=== PATIENT | female | born 1960 | race African-American/Black ===

== ENCOUNTER 2016-09-18 19:24 | Emergency (ER) ==
[2016-09-18] MEDS ORDERED: ASPIRIN PO ONE (19:37)
[2016-09-18] MEDS ORDERED: MORPHINE IV ONE ×2 (19:55→21:40)
[2016-09-18] MEDS ORDERED: PHENERGAN IV ONE (19:55)
[2016-09-18] MEDS ORDERED: SODIUM CHLORIDE 0.9% INJ ONE (19:55)
--- NOTE | 2016-09-18 19:55 | PROVIDER DOCUMENTATION ---
HPI-Chest Pain - General Source: patient - History of Present Illness-CP Chest Pain Radiation: reports: jaw, arms, back Quality of Pain: reports: tightness Severity in ED: moderate Onset/Duration: 24 hours ago Timing: still present Context/Activities at Onset: reports: none Associated Symptoms: reports: back pain, nausea, shortness of breath. denies: fever/chills, vomiting Nitro Today/Relief: no nitro taken today Aspirin Treatment Today: no aspirin today Prior Chest Pain/Cardiac Workup: reports: heart attack Similar Symptoms Previously?: Yes <Cyndi Yañez - Last Filed: 09/18/16 20:32> <Nida Guzman - Last Filed: 09/18/16 21:43> - General Chief Complaint: Shortness of Breath Stated Complaint: CHEST PAIN/SOB/BACK PAIN Time Seen by Provider: 09/18/16 19:43 Allergies/Adverse Reactions: Patient Allergies Allergy/AdvReac Type Severity Reaction Status Date / Time naproxen sodium * Allergy Intermediate RASH Verified 08/26/16 20:57 [From Anaprox] acetaminophen [From Tylenol] Allergy ITCHING Verified 08/26/16 20:57 dichloralphenazone AdvReac Mild RASH Verified 08/26/16 20:57 [From MIDRIN] isometheptene mucate * AdvReac Mild RASH Verified 08/26/16 20:57 [From MIDRIN] ketorolac tromethamine * AdvReac Mild RASH Verified 08/26/16 20:57 [From Toradol] naproxen [From Naprosyn] AdvReac Mild RASH Verified 08/26/16 20:57 tramadol HCl * [From Ultram] AdvReac Mild RASH Verified 08/26/16 20:57 ondansetron HCl * AdvReac NAUSEA/VOMI Verified 08/26/16 20:57 [From Zofran (as TING hydrochloride)] Home Medications: Home Medication List Medication Instructions Recorded Confirmed Last Taken Type ATORVAstatin [Lipitor] 40 mg PO QPM #0 tablet 02/08/13 07/20/16 07/19/16 21:00 Rx Carvedilol [Coreg] 25 mg PO BID #60 tablet 06/08/14 07/20/16 07/19/16 21:00 Rx Hydralazine HCl 25 mg PO TID 06/08/14 07/20/16 07/19/16 21:00 History LISINOpril [Prinivil] 20 mg PO DAILY #0 tablet 06/17/14 07/20/16 07/19/16 09:00 Rx Isosorbide Mononitrate E.r. [Imdur] 90 mg PO DAILY #0 tablet 08/31/14 07/20/16 07/19/16 09:00 Rx Furosemide [Lasix] 40 mg PO QAM 01/09/16 07/20/16 07/19/16 09:00 History Spironolactone 25 mg PO DAILY 01/28/16 07/20/16 07/19/16 09:00 History Albuterol 2.5MG/Ipratrop 0.5MG 3 ml INH [id number] #30 neb 03/21/16 07/20/16 09:00 Rx [Duoneb (A & A)] Famotidine [Pepcid] 20 mg PO DAILY #20 tablet 05/27/16 07/20/16 07/19/16 09:00 Rx Colchicine [Colcrys] 0.6 mg PO BID PRN PRN 06/07/16 07/20/16 07/19/16 21:00 History Omeprazole [Prilosec] 20 mg PO DAILY@0700 #0 capsule 06/08/16 07/20/16 07/19/16 09:00 Rx Clonazepam [Klonopin] 1 mg PO BID 07/19/16 07/20/16 07/19/16 21:00 History Promethazine [Phenergan] 25 mg PO Q6H PRN PRN #20 tablet 08/26/16 Unknown Rx - History of Present Illness-CP Nature of Presenting Problem: 56 Y/O F presents to ED with Chest Pain. Pt states that she's been having and onset of 24 hours ago of left sided Chest pain with SOB with radiation to her left side of chest and left arm and into her back. Pt states a hx of a heart attack, with 2 cardaic stints, Nausea. Denies any diaphoresis. States she's on 3L of O2, COPD meds and nebulizer states compliance with meds but hasn't helped with SOB. (Cyndi Yañez) Review of Systems - Adult - REVIEW OF SYSTEMS - ADULT Constitutional: denies: chills, fever Eyes: reports: no symptoms reported Ears, Nose, Mouth & Throat: reports: no symptoms reported Cardiovascular: reports: chest pain Respiratory: reports: shortness of breath. denies: cough Gastrointestinal: reports: nausea. denies: diarrhea, vomiting Genitourinary: reports: no symptoms reported Musculoskeletal: reports: back pain Integumentary: reports: no symptoms reported Neurological: denies: dizziness/vertigo, headache/migraines, numbness, seizure, syncope Psychiatric: reports: no symptoms reported Endocrine: reports: no symptoms reported Hematologic/Lymphatic: reports: no symptoms reported Allergic/Immunologic: reports: no symptoms reported All Other Systems: Reviewed and Negative <Cyndi Yañez - Last Filed: 09/18/16 20:32> Past History - Adult - PAST MEDICAL HISTORY-ADULT Review of Records: reports: Old Records Reviewed, Nursing Assessment Review, Medications Reviewed, Social history reviewed & non-contributory. - SOCIAL HISTORY Smoking: quit greater than 1 year Substance Use: none/never Alcohol Use Frequency: never Living Situation: family <Cyndi Yañez - Last Filed: 09/18/16 20:32> - PAST MEDICAL HISTORY-ADULT Major Childhood Illnesses: reports: denies history Cardiovascular: reports: CAD, CHF, HTN, hyperlipidemia, VT (x2) Respiratory: reports: COPD Gastrointestinal: reports: GERD Obstetrical/Gynecological: reports: denies history Genitourinary: reports: kidney stones Musculoskeletal: reports: chronic pain Neurological: reports: headaches/migraines (tension headaches) Psychiatric: reports: anxiety Endocrine/Immune: reports: Diabetes Other Conditions: reports: denies history Additional History: Freq ER visits - PRIOR SURGERIES/PROCEDURES Surgical/Procedure History: reports: reviewed, not pertinent, cholecystectomy, cardiac stent (X2 ), hysterectomy, - PRIOR HOSPITALIZATIONS Prior Hospitalizations: reports: for similar symptoms, for other non-related - IMMUNIZATION STATUS Childhood Immunizations: See Nurse Assessment Flu Vaccine: See Nurse Assessment - FAMILY HISTORY Family History: reviewed, not pertinent <Nida Guzman - Last Filed: 09/18/16 21:43> Physical Exam-General - PHYSICAL EXAM-ADULT Initial Vital Signs Reviewed: Yes - CONSTITUTIONAL General Appearance: appears well, alert, no apparent distress, obese - EYES Eyes: PERRL/EOMI, pink conjunctivae - HEAD, EARS, NOSE, MOUTH & THROAT HENMT: normocephalic/atraumatic, moist mucous membranes, normal ENT inspection - NECK Neck: non-tender, full range of motion, supple. negative: lymphadenopathy - RESPIRATORY Respiratory: chest non-tender, lungs clear, normal breath sounds - CARDIOVASCULAR Cardiovascular: regular rate, rhythm, no edema, no murmur - GASTROINTESTINAL (ABDOMEN) Abdominal Exam: normal bowel sounds, non tender, soft - MUSCULOSKELETAL Back Exam: no CVA tenderness, no vertebral tenderness Extremity: normal inspection Peripheral Pulses: dorsalis-pedis (R): 2+, dorsalis-pedis (L): 2+ - SKIN Integumentary: normal color, normal turgor, warm/dry. negative: rash - NEUROLOGIC Neurologic: grossly normal, no motor/sensory deficits - PSYCHIATRIC Psych/Mental Status: normal thought content, normal thought process <Nida Guzman - Last Filed: 09/18/16 21:43> Progress - EKG 1 Time of EKG reading by physician:: 19:37 EKG Read and Signed by:: Israel Espitia EKG Interpretation (*Must complete 3 of following elements*): Abnormal Rate: 94 Rhythm: NSR QRS: RBB Comments: Abnormal ECG <Cyndi Yañez - Last Filed: 09/18/16 20:32> <Nida Guzman - Last Filed: 09/18/16 21:43> - PLAN OF CARE/RESULTS Progress/Plan/Lab Results: Reviewed past records and pt has had multiple elevated d-dimers with normal VQ scans and pulmonary angiograms. Pt is frequently in ER with same complaints of SOB and chest pain. Discussed all labs and x-rays with Dr. Espitia. Vital Signs Temp Pulse Resp BP Pulse Ox 09/18/16 19:40 95 H 23 143/100 95 09/18/16 19:32 98 F 101 H 20 162/92 99 naproxen sodium * [From Anaprox] Allergy (Intermediate, Verified 08/26/16 20:57) RASH acetaminophen [From Tylenol] Allergy (Verified 08/26/16 20:57) ITCHING dichloralphenazone [From MIDRIN] Adverse Reaction (Mild, Verified 08/26/16 20:57 ) RASH isometheptene mucate * [From MIDRIN] Adverse Reaction (Mild, Verified 08/26/16 20:57) RASH ketorolac tromethamine * [From Toradol] Adverse Reaction (Mild, Verified 20:57) RASH naproxen [From Naprosyn] Adverse Reaction (Mild, Verified 08/26/16 20:57) RASH tramadol HCl * [From Ultram] Adverse Reaction (Mild, Verified 08/26/16 20:57) RASH ondansetron HCl * [From Zofran (as hydrochloride)] Adverse Reaction (Verified 20:57) NAUSEA/VOMITING ATORVAstatin [Lipitor] 40 mg PO QPM #0 tablet 02/08/13 Carvedilol [Coreg] 25 mg PO BID #60 tablet 06/08/14 Hydralazine HCl 25 mg PO TID 06/08/14 LISINOpril [Prinivil] 20 mg PO DAILY #0 tablet 06/17/14 Isosorbide Mononitrate E.r. [Imdur] 90 mg PO DAILY #0 tablet 08/31/14 Furosemide [Lasix] 40 mg PO QAM 01/09/16 Spironolactone 25 mg PO DAILY 01/28/16 Albuterol 2.5MG/Ipratrop 0.5MG [Duoneb (A & A)] 3 ml INH [id number] #30 neb Famotidine [Pepcid] 20 mg PO DAILY #20 tablet 05/27/16 Colchicine [Colcrys] 0.6 mg PO BID PRN PRN 06/07/16 Omeprazole [Prilosec] 20 mg PO DAILY@0700 #0 capsule 06/08/16 Clonazepam [Klonopin] 1 mg PO BID 07/19/16 Promethazine [Phenergan] 25 mg PO Q6H PRN PRN #20 tablet 08/26/16 Laboratory 09/18/16 09/18/16 09/18/16 20:10 19:45 19:45 WBC 10.92 H RBC 3.98 L Hgb 12.2 Hct 37.6 MCV 94.5 MCH 30.7 MCHC 32.4 L RDW Std Deviation 14.6 H Plt Count 266 MPV 10.2 Immature Gran % (Auto) 0.1 Neut % (Auto) 63.7 Lymph % (Auto) 27.2 [place] % (Auto) 6.8 Eos % (Auto) 2.0 Baso % (Auto) 0.2 Immature Gran # (Auto) 0.01 Neut # (Auto) 6.96 H Lymph # (Auto) 2.97 [place] # (Auto) 0.74 H Eos # (Auto) 0.22 Baso # (Auto) 0.02 PT 13.7 INR 1.02 D-Dimer 0.80 H Specimen Type ARTERIAL Sample Site L RADIAL pH 7.50 H pCO2 38 pO2 65 HCO3 29.5 H Base Excess 6.1 H Oxyhemoglobin 90.1 L ABG O2 Sat (Calculated) 15.2 ABG O2 Saturation 96.6 ABG Carboxyhemoglobin 5.60 H* ABG Methemoglobin 1.0 Alex Test YES A-a O2 Difference 37.0 Total Hemoglobin 12.0 Lactate 1.50 Blood Gas Modality ROOM AIR FiO2 % 21.0 Sodium Potassium Chloride Carbon Dioxide Anion Gap BUN Creatinine Estimated GFR/1.73 m2 BUN/Creatinine Ratio Glucose Calculated Osmolality Calcium Magnesium Total Bilirubin AST ALT Alkaline Phosphatase Creatine Kinase Troponin T Cuv-G-Mzloojwndso Pept Total Protein Albumin Globulin Albumin/Globulin Ratio 09/18/16 09/18/16 09/18/16 19:45 19:45 19:45 WBC RBC Hgb Hct MCV MCH MCHC RDW Std Deviation Plt Count MPV Immature Gran % (Auto) Neut % (Auto) Lymph % (Auto) [place] % (Auto) Eos % (Auto) Baso % (Auto) Immature Gran # (Auto) Neut # (Auto) Lymph # (Auto) [place] # (Auto) Eos # (Auto) Baso # (Auto) PT INR D-Dimer Specimen Type Sample Site pH pCO2 pO2 HCO3 Base Excess Oxyhemoglobin ABG O2 Sat (Calculated) ABG O2 Saturation ABG Carboxyhemoglobin ABG Methemoglobin Alex Test A-a O2 Difference Total Hemoglobin Lactate Blood Gas Modality FiO2 % Sodium 140 Potassium 3.7 Chloride 103 Carbon Dioxide 25 Anion Gap 11 BUN 7 L Creatinine 1.0 H Estimated GFR/1.73 m2 58 BUN/Creatinine Ratio 7 Glucose 99 Calculated Osmolality 277 Calcium 9.1 Magnesium 1.6 Total Bilirubin 0.50 AST 12 ALT 8 L Alkaline Phosphatase 72 Creatine Kinase 94 Troponin T < 0.010 Eto-B-Jnyartmwhzs Pept 570 H Total Protein 7.1 Albumin 3.6 Globulin 4.0 Albumin/Globulin Ratio 1.0 Orders Category Date Time Status Cardiac Monitoring DIRECTED Care 09/18/16 19:37 Active CHEST-2 VIEWS [RAD] Stat Exams 09/18/16 19:37 Taken ABG [RESP] Routine Lab 09/18/16 20:10 Completed CBC WITH DIFF [HEME] Stat Lab 09/18/16 19:45 Completed CK PROFILE [SP CHEM] Stat Lab 09/18/16 19:45 Completed COMPREHENSIVE METABOLIC PANEL [CHEM] Stat Lab 09/18/16 19:[address] D-D[address]ER [address] [COAG] Stat Lab 09/18/16 19:45 Completed MAGNESIUM [CHEM] Stat Lab 09/18/16 19:45 Completed PRO B-NATRIURETIC PEPTIDE Stat Lab 09/18/16 19:45 Completed [address]IME WITH INR PL [COAG] Stat Lab 09/18/16 19:45 Completed TROPONIN T Stat Lab 09/18/16 19:45 Completed Aspirin Med 09/18/16 19:37 Discontinued 325 mg PO NOW ONE Morphine Med 09/18/16 19:55 Discontinued 4 mg IV NOW ONE Promethazine [Phenergan] Med 09/18/16 19:55 Discontinued 25 mg IV NOW ONE Sodium Chloride 0.9% Med 09/18/16 19:55 Discontinued 10 ml INJ NOW ONE EKG [EKG] Stat Ther 09/18/16 19:37 Ordered As results given to pt, she states she is still in pain and requests dilaudid as this controls her pain. This is denied, will give another dose of morphine. Explained her labs were all WNL at this time and that she needs to f/u with her acetylene operator for further evaluation. (Nida Guzman) Departure <Cyndi Yañez - Last Filed: 09/18/16 20:32> - Departure Time of Disposition Order: 21:20 Certified Medical Emergency: Emergent <Nida Guzman - Last Filed: 09/18/16 21:43> - Departure DIAGNOSIS: COPD exacerbation CHF (congestive heart failure) Qualifiers: Congestive heart failure type: unspecified congestive heart failure type Congestive heart failure chronicity: chronic Qualified Code(s): I50.9 - Heart failure, unspecified Chest pain Qualifiers: Chest pain type: other chest pain Qualified Code(s): R07.89 - Other chest pain Disposition: HOME 01 Condition: Good Additional Instructions: Follow up with your acetylene operator for further testing for chest pain. ED Follow Up Instructions: You have been treated by a care provider in the Emergency Department. These instructions are being provided to you so you can have an understanding of how to care for yourself upon discharge. Upon discharge from the Emergency Department, you are responsible for making arrangements for follow-up care by a physician of your choice. Take all prescribed medications as directed. Return to the Emergency Department immediately for any new or worsening symptoms. You may call the Physician Referral phone number at [phone] to obtain a list of Physicians who are taking new patients. Referrals: Abel Baez MD [Primary Care Provider] - Forms: Return to School/Parent Work Instructions: Chronic Obstructive Pulmonary Disease, Nonspecific Chest Pain, Heart Failure, Chest Pain Observation, Acute Bronchitis Attestation - Scribe Verification/Attestation Scribe:: Cyndi Yañez Acting as Scribe for:: Israel Espitia Scribe documention review:: This chart was documented by a scribe and accurately reflects the service the provider performed and the decisions made by the provider. - Physician/ [place] Attestation Patient care was provided by Advanced Practice Provider:: Yes Advanced Practice Provider:: Nida Guzman Advanced Practice Provider documentation review:: The Mid-level provider documentation, treatment plan and medical decision making was reviewed by the physician who agrees with all treatment and medical decision making by the MLP. <Cyndi Yañez - Last Filed: 09/18/16 20:32> - Physician/ [place] Attestation Patient care was provided by Advanced Practice Provider:: Yes Advanced Practice Provider:: Nida Guzman Advanced Practice Provider documentation review:: The Mid-level provider documentation, treatment plan and medical decision making was reviewed by the physician who agrees with all treatment and medical decision making by the MLP. <Nida Guzman - Last Filed: 09/18/16 21:43> Physician Attestation
[2016-09-18 19:57] LABS: MANUAL DIFF NEEDED? NO
[2016-09-18 20:11] LABS: BASO% 0.2 % (0.0-0.8); EOS# 0.22 X1000 (0.0-0.7); HEMATOCRIT 37.6 % (37.0-47.0); HEMOGLOBIN 12.2 g/dL (12.0-16.0); IMM GRAN# 0.01 X1000 (0.0-0.04); IMM GRAN% 0.1 % (0.0-0.5); LYMPH# 2.97 X1000 (1.2-3.4); LYMPH% 27.2 % (20.5-51.1); MCH 30.7 PG (27-31); MCHC 32.4 g/dL (33-37); MCV 94.5 FL (81-99); MONO# 0.74 X1000 (0.11-0.59); MONO% 6.8 % (1.7-9.3); MPV 10.2 FL (7.4-10.4); NEUT% 63.7 % (42.2-75.2); PLT 266 X1000 (130-400); RBC 3.98 XMIL (4.2-5.4)
[2016-09-18 20:15] LABS: INR 1.02 (0.86-1.15); PROTIME 13.7 Seconds (12.1-15.5)
[2016-09-18 20:25] LABS: BE 6.1 mmoll (-3.0-3.0); BLOOD TYPE ARTERIAL; DRAW SITE L RADIAL; O2(CT) 15.2 mL/dL (15.0-23.0); PCO2(98.6) 38 mmHg (35-45); PO2(98.6) 65 mmHg (60-100); SAMPLE BLOOD; SAO2 96.6 % (95.0-100.0)
[2016-09-18 20:33] LABS: ALLEN TEST YES; MODALITY ROOM AIR
[2016-09-18 20:38] LABS: ALBUMIN 3.6 g/dL (3.5-5.0); CALCIUM 9.1 mg/dL (8.8-10.2); MAGNESIUM 1.6 mg/dL (1.5-2.7); POTASSIUM 3.7 mmol/L (3.5-5.1); TOTAL BILIRUBIN 0.5 mg/dL (0.20-1.00); TOTAL PROTEIN 7.1 g/dL (6.3-8.3)
[2016-09-18] MEDS ORDERED: COMPAZINE IV ONE (21:41)
[2016-09-18 22:06] VITALS: BP 131/91
--- NOTE | 2016-09-19 01:07 | EKG Report ---
Test Performed on : 09/18/2016 7:37:18 PM Test Reason : CP/SOB Blood Pressure : / mmHG Vent. Rate : 094 BPM Atrial Rate : 094 BPM P-R Int : 132 ms QRS Dur : 128 ms QT Int : 444 ms P-R-T Axes : 043 267 067 degrees QTc Int : 555 ms Normal sinus rhythm. Right bundle branch block Septal infarct (cited on or before 26-NOV-2009) Possible Lateral infarct , age undetermined Abnormal ECG When compared with ECG of 26-AUG-2016 20:35, Left posterior fascicular block is no longer present Borderline criteria for Lateral infarct are now present T wave inversion no longer evident in Inferior leads Unconfirmed Result
--- NOTE | 2016-09-19 06:18 | Diag Imaging Result Document ---
PROCEDURE NAME: CHEST-2 VIEWS - 09/18/2016 FRONTAL AND LATERAL CHEST, TWO VIEWS: COMPARISON: Compared to 08/26/2016. FINDINGS: The lungs are well expanded. The heart is enlarged. There is atelectasis or fibrosis in the mid left lung. No pleural effusions. No pneumonia. The vessels are not distended. A small amount of atelectasis or fibrosis is found in the upper right lung. No free air beneath the diaphragm. IMPRESSION: 1. Cardiomegaly. 2. Bilateral atelectasis or fibrosis.
== END 2016-09-18 22:05 | disposition home or self-care (01) ==
LOC: P.ED 19:24
DX: J44.1 Chronic obstructive pulmonary disease with (acute) exacerbation (principal); I50.9 Heart failure, unspecified; R07.89 Other chest pain; R94.31 Abnormal electrocardiogram [ECG] [EKG]; R68.84 Jaw pain; M54.9 Dorsalgia, unspecified; R11.0 Nausea; R06.02 Shortness of breath; Z79.899 Other long term (current) drug therapy; M79.602 Pain in left arm; I25.10 Atherosclerotic heart disease of native coronary artery without angina pectoris; I10 Essential (primary) hypertension; E78.5 Hyperlipidemia, unspecified; I25.2 Old myocardial infarction; K21.9 Gastro-esophageal reflux disease without esophagitis; G89.29 Other chronic pain; E11.9 Type 2 diabetes mellitus without complications; F41.9 Anxiety disorder, unspecified; E66.9 Obesity, unspecified; Z95.5 Presence of coronary angioplasty implant and graft; Z87.891 Personal history of nicotine dependence; Z99.81 Dependence on supplemental oxygen; Z87.442 Personal history of urinary calculi
CPT/HCPCS: 71020; 80053; 82550; 82805; 83735; 83880; 84484; 85025; 85379; 85610; 93005; J0780; J2270; J2550

== ENCOUNTER 2016-09-20 23:31 | Emergency (ER) ==
[2016-09-20] MEDS ORDERED: DUONEB (A & A) INH ONE (23:53)
[2016-09-20 23:55] LABS: MANUAL DIFF NEEDED? NO
--- NOTE | 2016-09-21 00:01 | PROVIDER DOCUMENTATION ---
HPI-General Adult - General Chief Complaint: Shortness of Breath Stated Complaint: SOB Time Seen by Provider: 09/20/16 23:47 Source: patient Allergies/Adverse Reactions: Patient Allergies Allergy/AdvReac Type Severity Reaction Status Date / Time naproxen sodium * Allergy Intermediate RASH Verified 08/26/16 20:57 [From Anaprox] acetaminophen [From Tylenol] Allergy ITCHING Verified 08/26/16 20:57 dichloralphenazone AdvReac Mild RASH Verified 08/26/16 20:57 [From MIDRIN] isometheptene mucate * AdvReac Mild RASH Verified 08/26/16 20:57 [From MIDRIN] ketorolac tromethamine * AdvReac Mild RASH Verified 08/26/16 20:57 [From Toradol] naproxen [From Naprosyn] AdvReac Mild RASH Verified 08/26/16 20:57 tramadol HCl * [From Ultram] AdvReac Mild RASH Verified 08/26/16 20:57 ondansetron HCl * AdvReac NAUSEA/VOMI Verified 08/26/16 20:57 [From Zofran (as TING hydrochloride)] Home Medications: Home Medication List Medication Instructions Recorded Confirmed Last Taken Type ATORVAstatin [Lipitor] 40 mg PO QPM #0 tablet 02/08/13 09/21/16 09/21/16 Rx Carvedilol [Coreg] 25 mg PO BID #60 tablet 06/08/14 09/21/16 09/21/16 Rx Hydralazine HCl 25 mg PO TID 06/08/14 09/21/16 09/21/16 History LISINOpril [Prinivil] 20 mg PO DAILY #0 tablet 06/17/14 09/21/16 09/21/16 Rx Isosorbide Mononitrate E.r. [Imdur] 90 mg PO DAILY #0 tablet 08/31/14 09/21/16 09/21/16 Rx Furosemide [Lasix] 40 mg PO QAM 01/09/16 09/21/16 09/21/16 History Spironolactone 25 mg PO DAILY 01/28/16 09/21/16 09/21/16 History Albuterol 2.5MG/Ipratrop 0.5MG 3 ml INH [id number] #30 neb 03/21/16 09/21/16 Rx [Duoneb (A & A)] Famotidine [Pepcid] 20 mg PO DAILY #20 tablet 05/27/16 09/21/16 09/21/16 Rx Colchicine [Colcrys] 0.6 mg PO BID PRN PRN 06/07/16 09/21/16 09/21/16 History Omeprazole [Prilosec] 20 mg PO DAILY@0700 #0 capsule 06/08/16 09/21/16 09/21/16 Rx Ciprofloxacin HCl [Cipro] 500 mg PO BID #14 tablet 09/21/16 Unknown Rx Promethazine [Phenergan] 25 mg PO Q6H PRN PRN #20 tablet 09/21/16 Unknown Rx - History of Present Illness -Gen Adult Nature of Presenting Problems: Pt. is 56 yof that presents with c/o SOB and CP that began last night while at rest. Pt. reports the pain radiates to her back. Pt. denies any N/V/D or fever. Pt. states she went to [facility] last night but they didn't do anything for her. Pt. reports she waited all day and finally called her daughter to bring her to the ED. Location of Pain/Injury: reports: chest. denies: head, face, mouth, neck, upper extremity, hand(s), abdomen, back, pelvis, genitalia, lower extremity, feet, upper body, lower body, generalized Pain Radiation: reports: back Quality of Pain: reports: aching, pressure, tightness. denies: burning, cramping, dull, fullness, indigestion, sharp, stabbing, tearing, throbbing Severity: reports: moderate. denies: mild, severe Onset/Duration: reports: abrupt, last night Timing: reports: still present. denies: improving, gone now, resolved prior to arrival, intermittent, constant, changing over time, getting worse Context/Activities at Onset: reports: rest. denies: recent emotional stress, recent physical stress, recent trauma history, possible bad food, cold exposure , out of country travel Modifying Factors: improves with: nothing Associated Symptoms: reports: back/neck pain, chest pain, shortness of breath. denies: anxiety, arm pain, constipation, cough, diaphoresis, diarrhea, dizziness , EENT symptoms, fatigue, fever/chills, genitourinary problems, headaches, heartburn, joint pain, loss of appetite, malaise, muscle aches, sinus congestion /drainage, nausea, rash, seizure, sensory/motor loss, pain with inspiration, swelling/mass in abdomen, syncope, vomiting, weakness, trouble walking Similar Symptoms Previously?: Yes Recently seen or treated by another doctor?: Yes Review of Systems - Adult - REVIEW OF SYSTEMS - ADULT Constitutional: reports: see HPI. denies: chills, fever, fatique Eyes: reports: see HPI. denies: discharge, blurred vision, double vision Ears, Nose, Mouth & Throat: reports: see HPI. denies: ear discharge, ear pain, nose pain, loose teeth, throat pain, throat swelling Cardiovascular: reports: see HPI, chest pain. denies: edema, irregular heart rate, orthopnea, syncope Respiratory: reports: see HPI, shortness of breath. denies: cough, dyspnea on exertion, pleurisy, wheezing Gastrointestinal: reports: see HPI. denies: abdominal pain, hematemesis, diarrhea, nausea, vomiting Genitourinary: reports: see HPI. denies: dysuria, discharge, hematuria, hesitency, urgency Musculoskeletal: reports: see HPI, back pain. denies: bone pain, joint pain, muscle aches, neck pain Integumentary: reports: see HPI. denies: hives, itching, rash, skin thickening Neurological: reports: see HPI. denies: ataxia, headache/migraines, numbness, seizure, tremors Psychiatric: reports: see HPI. denies: anxiety, depression, emotional problems , insomnia, panic attacks, suicidal thoughts Endocrine: reports: see HPI. denies: cold intolerance, increased hunger, polyuria Past History - Adult - PAST MEDICAL HISTORY-ADULT Review of Records: reports: Old Records Reviewed, Nursing Assessment Review, Medications Reviewed, Social history reviewed & non-contributory. Major Childhood Illnesses: reports: denies history Cardiovascular: reports: CAD, CHF, HTN, hyperlipidemia, HI (x2) Respiratory: reports: COPD Gastrointestinal: reports: GERD Obstetrical/Gynecological: reports: denies history Genitourinary: reports: kidney stones Musculoskeletal: reports: chronic pain Neurological: reports: headaches/migraines (tension headaches) Psychiatric: reports: anxiety Endocrine/Immune: reports: Diabetes Other Conditions: reports: denies history Additional History: Freq ER visits - PRIOR SURGERIES/PROCEDURES Surgical/Procedure History: reports: reviewed, not pertinent, cholecystectomy, cardiac stent (X2 ), hysterectomy, - PRIOR HOSPITALIZATIONS Prior Hospitalizations: reports: for similar symptoms, for other non-related - IMMUNIZATION STATUS Childhood Immunizations: See Nurse Assessment Flu Vaccine: See Nurse Assessment - FAMILY HISTORY Family History: reviewed, not pertinent - SOCIAL HISTORY Smoking: quit greater than 1 year Physical Exam-General - PHYSICAL EXAM-ADULT Initial Vital Signs Reviewed: Yes - CONSTITUTIONAL General Appearance: alert, mild distress, obese. negative: thin, anxious, lethargic, slow to respond, obtunded, combative - EYES Eyes: PERRL/EOMI, pink conjunctivae. negative: conjuctival exudate, photophobia , scleral icterus, subconjunctival hemorrhage - HEAD, EARS, NOSE, MOUTH & THROAT HENMT: normocephalic/atraumatic, moist mucous membranes. negative: angioedema, frontal tenderness, maxillary tenderness - NECK Neck: non-tender, full range of motion, supple, normal inspection. negative: lymphadenopathy, trachial deviation, thyromegaly - RESPIRATORY Respiratory: decreased breath sounds, wheezing (expiratory). negative: crackles , rales, rhonchi - CARDIOVASCULAR Cardiovascular: regular rate, rhythm, no edema, no JVD, no murmur, tachycardia. negative: extra beats, friction rub, irregularly irregular - CHEST (BREASTS) Chest/Breast: deferred - GASTROINTESTINAL (ABDOMEN) Abdominal Exam: normal bowel sounds, non tender, soft. negative: distended, guarding, rigid, rebound, tenderness, hernia, mass - GENITOURINARY Female Genitalia/Pelvic Exam: deferred Rectal Exam: deferred Hemoccult Exam: deferred - LYMPHATIC Lymphatic: no adenopathy. negative: axilla node tender, cervical node tenderness - MUSCULOSKELETAL Back Exam: normal inspection, no CVA tenderness, no vertebral tenderness. negative: ecchymosis, vertebral tenderness Extremity: normal range of motion, non-tender, normal gait, normal inspection. negative: deformity, erythema, inflammation, swelling, tenderness Peripheral Pulses: radial (R): 2+, radial (L): 2+ - SKIN Integumentary: normal color, normal turgor, warm/dry. negative: cyanosis, diaphoresis, ecchymosis, erythema, jaundice, mottled, pallor, petechiae, purpura , rash, swelling, tenderness - NEUROLOGIC Neurologic: grossly normal, no motor/sensory deficits. negative: aphasia, facial droop, focal weakness, motor weakness, sensory deficit - PSYCHIATRIC Psych/Mental Status: normal mood/affect, normal thought content, normal thought process, oriented x 3. negative: anxious, paranoid, tearful Progress - PLAN OF CARE/RESULTS Progress/Plan/Lab Results: Discussed results and plan of care with patient. Patient agrees with plan and verbalizes understanding. Vital Signs Temp Pulse Resp BP Pulse Ox 09/21/16 00:19 90 22 09/20/16 23:38 97.8 F 104 H 22 149/105 100 naproxen sodium * [From Anaprox] Allergy (Intermediate, Verified 08/26/16 20:57) RASH acetaminophen [From Tylenol] Allergy (Verified 08/26/16 20:57) ITCHING dichloralphenazone [From MIDRIN] Adverse Reaction (Mild, Verified 08/26/16 20:57 ) RASH isometheptene mucate * [From MIDRIN] Adverse Reaction (Mild, Verified 08/26/16 20:57) RASH ketorolac tromethamine * [From Toradol] Adverse Reaction (Mild, Verified 20:57) RASH naproxen [From Naprosyn] Adverse Reaction (Mild, Verified 08/26/16 20:57) RASH tramadol HCl * [From Ultram] Adverse Reaction (Mild, Verified 08/26/16 20:57) RASH ondansetron HCl * [From Zofran (as hydrochloride)] Adverse Reaction (Verified 20:57) NAUSEA/VOMITING ATORVAstatin [Lipitor] 40 mg PO QPM #0 tablet 02/08/13 Carvedilol [Coreg] 25 mg PO BID #60 tablet 06/08/14 Hydralazine HCl 25 mg PO TID 06/08/14 LISINOpril [Prinivil] 20 mg PO DAILY #0 tablet 06/17/14 Isosorbide Mononitrate E.r. [Imdur] 90 mg PO DAILY #0 tablet 08/31/14 Furosemide [Lasix] 40 mg PO QAM 01/09/16 Spironolactone 25 mg PO DAILY 01/28/16 Albuterol 2.5MG/Ipratrop 0.5MG [Duoneb (A & A)] 3 ml INH [id number] #30 neb Famotidine [Pepcid] 20 mg PO DAILY #20 tablet 05/27/16 Colchicine [Colcrys] 0.6 mg PO BID PRN PRN 06/07/16 Omeprazole [Prilosec] 20 mg PO DAILY@0700 #0 capsule 06/08/16 I&O 09/19/16 09/20/16 09/21/16 06:59 06:59 06:59 Output Total 30 Balance -30 Laboratory 09/21/16 09/20/16 09/20/16 00:33 23:40 23:40 WBC RBC Hgb Hct MCV MCH MCHC RDW Std Deviation Plt Count MPV Immature Gran % (Auto) Neut % (Auto) Lymph % (Auto) [place] % (Auto) Eos % (Auto) Baso % (Auto) Immature Gran # (Auto) Neut # (Auto) Lymph # (Auto) [place] # (Auto) Eos # (Auto) Baso # (Auto) Sodium Potassium Chloride Carbon Dioxide Anion Gap BUN Creatinine Estimated GFR/1.73 m2 BUN/Creatinine Ratio Glucose Calculated Osmolality Calcium Total Bilirubin AST ALT Alkaline Phosphatase Creatine Kinase Troponin T < 0.010 [id number]-[id number] Pept 2231 H Total Protein Albumin Globulin Albumin/Globulin Ratio Urine Source CLEAN CATCH Urine Color YELLOW Urine Turbidity HAZY Urine pH 6.0 Ur Specific Hardy 1.012 Urine Protein NEGATIVE Ur Glucose (Stick) NEGATIVE Ur Ketones (Stick) NEGATIVE Urine Blood NEGATIVE Urine Nitrite NEGATIVE Urine Bilirubin NEGATIVE Urobilinogen Dipstick NORMAL Urine Leukocytes LARGE A Urine WBC (Auto) 10-20 A Urine RBC (Auto) <10 U Epithel Cells (Auto) >10 A Urine Bacteria (Auto) 1+ 09/20/16 09/20/16 23:40 23:40 WBC 13.11 H RBC 3.99 L Hgb 12.3 Hct 37.8 MCV 94.7 MCH 30.8 MCHC 32.5 L RDW Std Deviation 14.7 H Plt Count 284 MPV 9.8 Immature Gran % (Auto) 0.4 Neut % (Auto) 73.8 Lymph % (Auto) 19.4 L [place] % (Auto) 5.9 Eos % (Auto) 0.4 Baso % (Auto) 0.1 Immature Gran # (Auto) 0.05 H Neut # (Auto) 9.69 H Lymph # (Auto) 2.54 [place] # (Auto) 0.77 H Eos # (Auto) 0.05 Baso # (Auto) 0.01 Sodium 146 H Potassium 3.8 Chloride 104 Carbon Dioxide 24 L Anion Gap 18 BUN 9 Creatinine 1.2 H Estimated GFR/1.73 m2 56 BUN/Creatinine Ratio 8 Glucose 117 H Calculated Osmolality 290 Calcium 9.2 Total Bilirubin 0.50 AST 11 ALT 8 L Alkaline Phosphatase 73 Creatine Kinase 94 Troponin T [id number] Pept Total Protein 7.6 Albumin 3.8 Globulin 3.8 Albumin/Globulin Ratio 1.0 Urine Source Urine Color Urine Turbidity Urine pH Ur Specific Hardy Urine Protein Ur Glucose (Stick) Ur Ketones (Stick) Urine Blood Urine Nitrite Urine Bilirubin Urobilinogen Dipstick Urine Leukocytes Urine WBC (Auto) Urine RBC (Auto) U Epithel Cells (Auto) Urine Bacteria (Auto) Orders Category Date Time Status Saline Loc NOW Care 09/20/16 23:48 Active CHEST-2 VIEWS [RAD] Stat Exams 09/20/16 23:48 Taken CBC WITH ELECTRONIC DIFF [HEME] Stat Lab 09/20/16 23:40 Completed CK PROFILE [SP CHEM] Stat Lab 09/20/16 23:40 Completed COMPREHENSIVE METABOLIC PANEL [CHEM] Stat Lab 09/20/16 23:40 Completed Flu Swab [INFLUENZA SCREEN A/B] Stat Lab 09/20/16 23:52 Completed PRO B-NATRIURETIC PEPTIDE Stat Lab 09/20/16 23:40 Completed TROPONIN T Stat Lab 09/20/16 23:40 Completed URINALYSIS W/POSS RFLX CULT [URINALYSIS] Stat Lab 09/21/16 00:33 Completed URINE CULTURE [RM] Routine Lab 09/21/16 00:54 Received Albuterol 2.5MG/Ipratrop 0.5MG [Duoneb (A & A)] Med 09/20/16 23:53 Discontinued 3 ml INH NOW ONE CefTRIAXONE 1 GM/NS [Rocephin 1 gm/Ns] 50 ml Med 09/21/16 00:39 Discontinued IV NOW Furosemide [Lasix] Med 09/21/16 00:39 Discontinued 60 mg IV NOW ONE Methylprednisolone Sod Succ [Solu-Medrol] Med 09/21/16 00:39 Discontinued 125 mg IV NOW ONE Morphine Med 09/21/16 01:42 Discontinued 4 mg IV NOW ONE Promethazine [Phenergan] Med 09/21/16 01:41 Discontinued 12.5 mg IV NOW ONE Sodium Chloride 0.9% Med 09/21/16 01:41 Discontinued 10 ml INJ NOW ONE Aerosol Treatments Routine Oth 09/20/16 23:53 Completed Aerosol Treatments Stat Oth 09/20/16 23:53 Completed EKG [EKG] Stat Ther 09/20/16 23:40 Ordered Laboratory Tests 09/20/16 09/20/16 09/20/16 23:40 23:40 23:40 WBC 13.11 H RBC 3.99 L Hgb 12.3 Hct 37.8 MCV 94.7 MCH 30.8 MCHC 32.5 L RDW Std Deviation 14.7 H Plt Count 284 MPV 9.8 Immature Gran % (Auto) 0.4 Neut % (Auto) 73.8 Lymph % (Auto) 19.4 L [place] % (Auto) 5.9 Eos % (Auto) 0.4 Baso % (Auto) 0.1 Immature Gran # (Auto) 0.05 H Neut # (Auto) 9.69 H Lymph # (Auto) 2.54 [place] # (Auto) 0.77 H Eos # (Auto) 0.05 Baso # (Auto) 0.01 Sodium 146 H Potassium 3.8 Chloride 104 Carbon Dioxide 24 L Anion Gap 18 BUN 9 Creatinine 1.2 H Estimated GFR/1.73 m2 56 BUN/Creatinine Ratio 8 Glucose 117 H Calculated Osmolality 290 Calcium 9.2 Total Bilirubin 0.50 AST 11 ALT 8 L Alkaline Phosphatase 73 Creatine Kinase 94 Troponin T Fyk-[id number]-Hrliucnuabz Pept 2231 H Total Protein 7.6 Albumin 3.8 Globulin 3.8 Albumin/Globulin Ratio 1.0 Urine Source Urine Color Urine Turbidity Urine pH Ur Specific [place] Urine Protein Ur Glucose (Stick) Ur Ketones (Stick) Urine Blood Urine Nitrite Urine Bilirubin Urobilinogen Dipstick Urine Leukocytes Urine WBC (Auto) Urine RBC (Auto) U Epithel Cells (Auto) Urine Bacteria (Auto) 09/20/16 09/21/16 23:40 00:33 WBC RBC Hgb Hct MCV MCH MCHC RDW Std Deviation Plt Count MPV Immature Gran % (Auto) Neut % (Auto) Lymph % (Auto) [place] % (Auto) Eos % (Auto) Baso % (Auto) Immature Gran # (Auto) Neut # (Auto) Lymph # (Auto) [place] # (Auto) Eos # (Auto) Baso # (Auto) Sodium Potassium Chloride Carbon Dioxide Anion Gap BUN Creatinine Estimated GFR/1.73 m2 BUN/Creatinine Ratio Glucose Calculated Osmolality Calcium Total Bilirubin AST ALT Alkaline Phosphatase Creatine Kinase Troponin T < 0.010 Nrk-X-Ipjruscrtio Pept Total Protein Albumin Globulin Albumin/Globulin Ratio Urine Source CLEAN CATCH Urine Color YELLOW Urine Turbidity HAZY Urine pH 6.0 Ur Specific [place] 1.012 Urine Protein NEGATIVE Ur Glucose (Stick) NEGATIVE Ur Ketones (Stick) NEGATIVE Urine Blood NEGATIVE Urine Nitrite NEGATIVE Urine Bilirubin NEGATIVE Urobilinogen Dipstick NORMAL Urine Leukocytes LARGE A Urine WBC (Auto) 10-20 A Urine RBC (Auto) <10 U Epithel Cells (Auto) >10 A Urine Bacteria (Auto) 1+ - XRAY 1 XRAY Study: Chest XRAY Interpretation: CHF, Cardiomegally (Miguel) Departure - Departure Time of Disposition Order: 01:43 DIAGNOSIS: COPD exacerbation, Morbid obesity with BMI of 40.0-44.9, adult, Shortness of breath Heart failure Qualifiers: Heart failure type: unspecified heart failure type Heart failure chronicity: unspecified heart failure chronicity Qualified Code(s): I50.9 - Heart failure, unspecified UTI (urinary tract infection) Qualifiers: Urinary tract infection type: acute cystitis Hematuria presence: without hematuria Qualified Code(s): N30.00 - Acute cystitis without hematuria Disposition: HOME 01 Certified Medical Emergency: Emergent Condition: Stable Additional Instructions: Followup with primary care physician Take medications as directed Double your lasix dose for two days Return to ED for any concerns or worsening of symptoms ED Follow Up Instructions: You have been treated by a care provider in the Emergency Department. These instructions are being provided to you so you can have an understanding of how to care for yourself upon discharge. Upon discharge from the Emergency Department, you are responsible for making arrangements for follow-up care by a physician of your choice. Take all prescribed medications as directed. Return to the Emergency Department immediately for any new or worsening symptoms. You may call the Physician Referral phone number at [phone] to obtain a list of Physicians who are taking new patients. Prescriptions: Ciprofloxacin HCl [Cipro] 500 mg PO BID #14 tablet Promethazine [Phenergan] 25 mg PO Q6H PRN PRN #20 tablet PRN Reason: Nausea Attestation - Physician/ [place] Attestation Patient care was provided by Advanced Practice Provider:: Yes Advanced Practice Provider:: Ed Johnson Advanced Practice Provider documentation review:: The Mid-level provider documentation, treatment plan and medical decision making was reviewed by the physician who agrees with all treatment and medical decision making by the MLP.
[2016-09-21 00:02] LABS: BASO% 0.1 % (0.0-0.8); EOS# 0.05 X1000 (0.0-0.7); EOS% 0.4 % (0.0-10.0); HEMATOCRIT 37.8 % (37.0-47.0); HEMOGLOBIN 12.3 g/dL (12.0-16.0); IMM GRAN# 0.05 X1000 (0.0-0.04); IMM GRAN% 0.4 % (0.0-0.5); LYMPH# 2.54 X1000 (1.2-3.4); LYMPH% 19.4 % (20.5-51.1); MCH 30.8 PG (27-31); MCHC 32.5 g/dL (33-37); MCV 94.7 FL (81-99); MONO# 0.77 X1000 (0.11-0.59); MONO% 5.9 % (1.7-9.3); MPV 9.8 FL (7.4-10.4); NEUT% 73.8 % (42.2-75.2); PLT 284 X1000 (130-400); RBC 3.99 XMIL (4.2-5.4)
--- NOTE | 2016-09-21 00:09 | ED EKG INTERP ---
EKG Interpretation - EKG Time of EKG reading by physician:: 23:38 EKG Read and Signed by:: Jaime Rivera EKG Interpretation (*Must complete 3 of following elements*): Abnormal Rate: 99 Rhythm: NSR [place]: left QRS: RBB Comments: Anterseptal infarct age undetermined Attestation - Scribe Verification/Attestation Scribe:: Carmelo Avendaño Acting as Scribe for:: Jaime Rivera Scribe documention review:: This chart was documented by a scribe and accurately reflects the service the provider performed and the decisions made by the provider.
[2016-09-21 00:38] LABS: URINE MICRO REVIEW NEEDED? NO; URINE SOURCE CLEAN CATCH
[2016-09-21 00:39] LABS: ALBUMIN 3.8 g/dL (3.5-5.0); CALCIUM 9.2 mg/dL (8.8-10.2); POTASSIUM 3.8 mmol/L (3.5-5.1); TOTAL BILIRUBIN 0.5 mg/dL (0.20-1.00); TOTAL PROTEIN 7.6 g/dL (6.3-8.3)
[2016-09-21] MEDS ORDERED: LASIX IV ONE (00:39)
[2016-09-21] MEDS ORDERED: ROCEPHIN 1 GM/NS 50 ML IV ONE (00:39)
[2016-09-21] MEDS ORDERED: SOLU-MEDROL IV ONE (00:39)
[2016-09-21 00:49] LABS: BILIRUBIN URINE NEGATIVE (NEGATIVE); BLOOD URINE NEGATIVE (NEGATIVE); COLOR YELLOW; GLUCOSE URINE NEGATIVE (NEGATIVE); LEUKOCYTES URINE LARGE (NEGATIVE); NITRITE URINE NEGATIVE (NEGATIVE); PROTEIN URINE NEGATIVE (NEGATIVE); SP GRAVITY URINE 1.012; TURBIDITY URINE HAZY (CLEAR); UR EPITHELIAL CELLS >10 /HPF (<10); URINE BACTERIA 1+ /HPF; URINE CULTURE NEEDED? YES; URINE RBC <10 /HPF (<10); UROBILINOGEN URINE NORMAL (NORMAL)
[2016-09-21] MEDS ORDERED: PHENERGAN IV ONE (01:41)
[2016-09-21] MEDS ORDERED: SODIUM CHLORIDE 0.9% INJ ONE (01:41)
[2016-09-21] MEDS ORDERED: MORPHINE IV ONE (01:42)
[2016-09-21] MEDS ORDERED: NUBAIN IV ONE (02:02)
[2016-09-21 02:29] VITALS: BP 157/105
--- NOTE | 2016-09-21 08:31 | Diag Imaging Result Document ---
PROCEDURE NAME: CHEST-2 VIEWS - 09/20/2016 CHEST X-RAY, 2 VIEWS: COMPARISON: 09/18/2016. FINDINGS: Stable cardiomegaly. Pulmonary vascularity remains top normal. Stable linear atelectasis or scarring bilaterally in the mid lungs and upper lung zones. No new or focal infiltrates. No pneumothorax or pleural effusion. IMPRESSION: No change from prior.
--- NOTE | 2016-09-21 09:56 | EKG Report ---
Test Performed on : 09/20/2016 11:38:34 PM Test Reason : SOB Blood Pressure : / mmHG Vent. Rate : 099 BPM Atrial Rate : 099 BPM P-R Int : 128 ms QRS Dur : 132 ms QT Int : 414 ms P-R-T Axes : 060 -89 071 degrees QTc Int : 531 ms Normal sinus rhythm. Possible Left atrial enlargement Left axis deviation Right bundle branch block Anteroseptal infarct (cited on or before 26-NOV-2009) Abnormal ECG When compared with ECG of 18-SEP-2016 19:37, (Unconfirmed) Questionable change in initial forces of Anterolateral leads Inverted T waves have replaced nonspecific T wave abnormality in Anterior leads Unconfirmed Result
== END 2016-09-21 02:29 | disposition home or self-care (01) ==
LOC: ED 23:31
DX: J44.1 Chronic obstructive pulmonary disease with (acute) exacerbation (principal); N30.00 Acute cystitis without hematuria; I50.9 Heart failure, unspecified; R06.02 Shortness of breath; R94.31 Abnormal electrocardiogram [ECG] [EKG]; R07.89 Other chest pain; M54.9 Dorsalgia, unspecified; R06.2 Wheezing; Z79.899 Other long term (current) drug therapy; R00.0 Tachycardia, unspecified; I25.10 Atherosclerotic heart disease of native coronary artery without angina pectoris; I10 Essential (primary) hypertension; E78.5 Hyperlipidemia, unspecified; I25.2 Old myocardial infarction; K21.9 Gastro-esophageal reflux disease without esophagitis; G89.29 Other chronic pain; E11.9 Type 2 diabetes mellitus without complications; E66.01 Morbid (severe) obesity due to excess calories; Z68.41 Body mass index [BMI] 40.0-44.9, adult; Z87.442 Personal history of urinary calculi; Z95.5 Presence of coronary angioplasty implant and graft; Z87.891 Personal history of nicotine dependence
CPT/HCPCS: 71020; 80053; 81001; 82550; 83880; 84484; 85025; 87088; 87804; 93005; 94640; J0696; J1940; J2270; J2300; J2550; J2930

== ENCOUNTER 2018-07-17 18:10 | Inpatient (IN) ==
--- NOTE | 2018-07-17 19:02 | Diag Imaging Result Doc PS360 ---
EXAM: CHEST-2 VIEWS 07/17/2018 HISTORY: cheat pain TECHNIQUE: PA and lateral chest COMMENT: There is cardiomegaly. There are ill-defined opacities in both lower lobes and platelike opacity in the left upper lobe. The appearance of the chest has not changed significantly since 04/21/2018 and these opacities are probably due to fibrosis. IMPRESSION: Cardiomegaly and fibrotic scars. No evidence of acute disease. Electronically signed by Wiliam Cao 07/17/2018 6:59 PM
[2018-07-17] MEDS ORDERED: NITROGLYCERIN TOP ONE (19:08)
[2018-07-17] MEDS ORDERED: LOPRESSOR IV ONE (19:09)
[2018-07-17 20:13] LABS: BASO# 0.02 X1000 (0.0-0.2); BASO% 0.2 % (0.0-0.8); EOS# 0.12 X1000 (0.0-0.7); HEMATOCRIT 37.8 % (37.0-47.0); HEMOGLOBIN 12.1 g/dL (12.0-16.0); IMM GRAN# 0.02 X1000 (0.0-0.04); IMM GRAN% 0.2 % (0.0-0.5); LYMPH# 2.71 X1000 (1.2-3.4); MCH 30.3 PG (27-31); MCV 94.7 FL (81-99); MONO% 5.9 % (1.7-9.3); NEUT# 8.22 X1000 (1.4-6.5); NEUT% 69.7 % (42.2-75.2); PLT 290 X1000 (130-400); RBC 3.99 XMIL (4.2-5.4); RDW 14.5 % (11.5-14.5); WBC 11.79 X1000 (4.8-10.8)
[2018-07-17 20:32] LABS: INR 1.04; PROTIME 14.1 Seconds (11.0-16.0)
[2018-07-17 20:33] LABS: PTT 31.8 Seconds (22.3-41.8)
[2018-07-17 20:51] LABS: AGAP 12; ALBUMIN 3.6 g/dL (3.5-5.0); ALKALINE PHOSPHATASE 89 U/L (32-104); BUN 8 mg/dL (8-22); CALCIUM 9.6 mg/dL (8.8-10.2); CHLORIDE 104 mmol/L (98-107); CK PROFILE 81 U/L (24-173); COSMO 283; CREATININE 0.8 mg/dL (0.5-0.9); ESTIMATED GFR > 60; GLUCOSE 97 mg/dL (70-104); GOT 11 U/L (10-30); GPT 8 U/L (10-36); POTASSIUM 4.3 mmol/L (3.5-5.1); SODIUM 143 mmol/L (136-145); TCO2 27 mmol/L (25-35); TOTAL PROTEIN 7.6 g/dL (6.3-8.3)
[2018-07-17] MEDS ORDERED: PHENERGAN IV ONE (21:18)
[2018-07-17] MEDS ORDERED: SODIUM CHLORIDE 0.9% INJ ONE (21:18)
[2018-07-17] MEDS ORDERED: DILAUDID IV ONE (21:19)
--- NOTE | 2018-07-17 21:24 | PROVIDER DOCUMENTATION ---
This chart was entered by Carmelo Avendaño Scribe, acting as scribe for Sebastián Amaral MD. HPI-Chest Pain - General Chief Complaint: Chest Pain Stated Complaint: PALPITATIONS Time Seen by Provider: 07/17/18 19:08 Source: patient Allergies/Adverse Reactions: Patient Allergies Allergy/AdvReac Type Severity Reaction Status Date / Time naproxen sodium * Allergy Intermediate RASH Verified 07/17/18 18:34 [From Anaprox] dichloralphenazone AdvReac Mild RASH Verified 07/17/18 18:34 [From MIDRIN] isometheptene mucate * AdvReac Mild RASH Verified 07/17/18 18:34 [From MIDRIN] ketorolac tromethamine * AdvReac Mild RASH Verified 07/17/18 18:34 [From Toradol] naproxen [From Naprosyn] AdvReac Mild RASH Verified 07/17/18 18:34 tramadol HCl * [From Ultram] AdvReac Mild RASH Verified 07/17/18 18:34 acetaminophen AdvReac Unknown Verified 07/17/18 18:34 ibuprofen AdvReac Unknown Verified 07/17/18 18:34 ondansetron HCl * AdvReac NAUSEA/VOMI Verified 07/17/18 18:34 [From Zofran (as TING hydrochloride)] Home Medications: Home Medication List Medication Instructions Recorded Confirmed Last Taken Type Carvedilol [Coreg] 25 mg PO BID #60 tablet 06/08/14 07/17/18 04/21/18 09:00 Rx Hydralazine HCl 25 mg PO TID@0900,1500,2100 06/08/14 07/17/18 04/21/18 13:30 History Furosemide [Lasix] 40 mg PO BID 01/09/16 07/17/18 04/21/18 09:00 History Atorvastatin Calcium [Lipitor] 40 mg PO QHS 03/16/17 07/17/18 04/20/18 21:00 History Spironolactone 25 mg PO DAILY 06/29/17 07/17/18 04/21/18 09:00 History Isosorbide Mononitrate [Isosorbide 60 mg PO DAILY 07/07/17 07/17/18 04/21/18 09: 00 History Mononitrate ER] Albuterol 2.5MG/Ipratrop 0.5MG 3 ml INH Q2H PRN PRN #120 neb 07/12/17 04/21/18 12/19/17 Rx [Duoneb (A & A)] 3 ML Amitriptyline HCl 10 mg PO DAILY 07/17/18 07/18/18 Unknown History Hydrocodone/Acetaminophen [Holiday 1 each PO TID PRN 07/17/18 07/17/18 Unknown History 5-325 Tablet] Sumatriptan Succinate 25 mg PO PRN PRN MDD 100 07/17/18 07/17/18 Unknown History Tizanidine HCl 4 mg PO BID 07/17/18 07/17/18 Unknown History - History of Present Illness-CP Nature of Presenting Problem: Pt is a 58 y/o BF with history of CAD (S/P MT's, cardiac stents), HTN, and morbid obesity comes to the ED with chest pain that began this morning around 5am. She reports some sweating and sob. She says she took 325mg aspiring this morning and this evening. She says she had 1 nitro with relief for only a couple minutes. She reports a MT with 2 stents. Location: reports: substernal, central Chest Pain Radiation: reports: arms (left), back Quality of Pain: reports: pressure Severity in ED: moderate, severe Onset/Duration: this morning Timing: still present Context/Activities at Onset: reports: rest Modifying Factors: improves with: nothing Associated Symptoms: reports: back pain, diaphoresis, headache, nausea. denies : dizziness, vomiting Nitro Today/Relief: 0.4 mg x 1, provided at home Aspirin Treatment Today: 325 mg x 1 (Time 2), provided at home Prior Chest Pain/Cardiac Workup: reports: cardiac cath Similar Symptoms Previously?: No Recently Seen Here or By Another Healthcare Provider: No Review of Systems - Adult - REVIEW OF SYSTEMS - ADULT Constitutional: denies: chills, fever Eyes: reports: no symptoms reported Ears, Nose, Mouth & Throat: reports: no symptoms reported Cardiovascular: reports: chest pain. denies: edema Respiratory: reports: shortness of breath. denies: cough, wheezing Gastrointestinal: reports: diarrhea, nausea. denies: abdominal pain, constipation, vomiting Genitourinary: reports: no symptoms reported Musculoskeletal: reports: back pain. denies: neck pain Integumentary: reports: no symptoms reported Neurological: reports: headache/migraines. denies: dizziness/vertigo Psychiatric: reports: no symptoms reported Endocrine: reports: no symptoms reported Hematologic/Lymphatic: reports: no symptoms reported Allergic/Immunologic: reports: no symptoms reported All Other Systems: Reviewed and Negative Past History - Adult - PAST MEDICAL HISTORY-ADULT Review of Records: reports: Old Records Reviewed, Nursing Assessment Review, Medications Reviewed Major Childhood Illnesses: reports: denies history Cardiovascular: reports: CAD, CHF, HTN, hyperlipidemia, MT (x2) Respiratory: reports: asthma, COPD Gastrointestinal: reports: GERD Obstetrical/Gynecological: reports: denies history Genitourinary: reports: kidney stones Musculoskeletal: reports: chronic pain (back) Neurological: reports: CVA, headaches/migraines (tension headaches) Psychiatric: reports: anxiety Endocrine/Immune: reports: Diabetes Other Conditions: reports: denies history Additional History: Freq ER visits - PRIOR SURGERIES/PROCEDURES Surgical/Procedure History: reports: cholecystectomy, cardiac stent (X2 ), hysterectomy, - PRIOR HOSPITALIZATIONS Prior Hospitalizations: reports: for similar symptoms, for other non-related - IMMUNIZATION STATUS Childhood Immunizations: See Nurse Assessment Flu Vaccine: See Nurse Assessment - FAMILY HISTORY Family History: reviewed, not pertinent - SOCIAL HISTORY Smoking: quit greater than 1 year (quit 2008) Substance Use: none/never Living Situation: family Physical Exam-General - PHYSICAL EXAM-ADULT Initial Vital Signs Reviewed: Yes - CONSTITUTIONAL General Appearance: alert, no apparent distress, obese (morbid) - EYES Eyes: PERRL/EOMI, pink conjunctivae - HEAD, EARS, NOSE, MOUTH & THROAT HENMT: moist mucous membranes, normal ENT inspection, pharynx normal - NECK Neck: non-tender, full range of motion, supple, normal inspection - RESPIRATORY Respiratory: normal breath sounds, no pleuratic chest pain, no respiratory distress, no accessory muscle use. negative: chest non-tender (left anterior chest wall) - CARDIOVASCULAR Cardiovascular: normal peripheral pulses, regular rate, rhythm - GASTROINTESTINAL (ABDOMEN) Abdominal Exam: normal bowel sounds, soft, tenderness (left sided abdominal tenderness). negative: guarding, rigid, rebound - MUSCULOSKELETAL Back Exam: normal inspection, no CVA tenderness, no vertebral tenderness Extremity: normal range of motion, normal gait, pedal edema (2+), tenderness ( diffuse lower extremity) - SKIN Integumentary: normal color, normal turgor, warm/dry - NEUROLOGIC Neurologic: grossly normal, no motor/sensory deficits - PSYCHIATRIC Psych/Mental Status: normal mood/affect, normal thought content, normal thought process, oriented x 3 Progress - PLAN OF CARE/RESULTS Progress/Plan/Lab Results: Vital Signs - 8 hr 07/17/18 21:09 Pulse Rate 90 Respiratory Rate 19 Blood Pressure 176/106 O2 Sat by Pulse Oximetry 96 Laboratory Results - last 24 hr 07/17/18 07/17/18 07/17/18 19:58 19:58 19:58 WBC 11.79 H RBC 3.99 L Hgb 12.1 Hct 37.8 MCV 94.7 MCH 30.3 MCHC 32.0 L RDW Std Deviation 14.5 Plt Count 290 MPV 10.0 Immature Gran % (Auto) 0.2 Neut % (Auto) 69.7 Lymph % (Auto) 23.0 [place] % (Auto) 5.9 Eos % (Auto) 1.0 Baso % (Auto) 0.2 Immature Gran # (Auto) 0.02 Neut # (Auto) 8.22 H Lymph # (Auto) 2.71 [place] # (Auto) 0.70 H Eos # (Auto) 0.12 Baso # (Auto) 0.02 PT INR PTT (Actin FS) Sodium 143 Potassium 4.3 Chloride 104 Carbon Dioxide 27 Anion Gap 12 BUN 8 Creatinine 0.8 Estimated GFR/1.73 m2 > 60 BUN/Creatinine Ratio 10 Glucose 97 Calculated Osmolality 283 Calcium 9.6 Total Bilirubin 1.30 H AST 11 ALT 8 L Alkaline Phosphatase 89 Creatine Kinase 81 Troponin T Glh-H-Ghenxrqybbs Pept 2497 H Total Protein 7.6 Albumin 3.6 Globulin 4.0 Albumin/Globulin Ratio 1.0 07/17/18 07/17/18 19:58 19:58 WBC RBC Hgb Hct MCV MCH MCHC RDW Std Deviation Plt Count MPV Immature Gran % (Auto) Neut % (Auto) Lymph % (Auto) [place] % (Auto) Eos % (Auto) Baso % (Auto) Immature Gran # (Auto) Neut # (Auto) Lymph # (Auto) [place] # (Auto) Eos # (Auto) Baso # (Auto) PT 14.1 INR 1.04 PTT (Actin FS) 31.8 Sodium Potassium Chloride Carbon Dioxide Anion Gap BUN Creatinine Estimated GFR/1.73 m2 BUN/Creatinine Ratio Glucose Calculated Osmolality Calcium Total Bilirubin AST ALT Alkaline Phosphatase Creatine Kinase Troponin T < 0.010 Dyr-G-Zdonapmhtbv Pept Total Protein Albumin Globulin Albumin/Globulin Ratio Orders Category Date Time Status Activity - Bed Rest with BRP ORDERED Care 07/17/18 21:35 Active Cardiac Monitoring DIRECTED Care 07/17/18 18:34 Completed Oxygen Therapy- ED Nursing DIRECTED Care 07/17/18 18:34 Completed Resuscitation Status Routine Care 07/17/18 21:35 Ordered Saline Loc DIRECTED Care 07/17/18 21:35 Active Vital Signs Order Q 4-HR ASSESS Care 07/17/18 21:35 Active Z-Document. for Tele Applied ORDERED Care 07/17/18 21:37 Completed cardiac diet [Heart Healthy Diet] Diet 07/17/18 22:09 Active CHEST-2 VIEWS [RAD] Stat Exams 07/17/18 18:34 Completed CBC WITH ELECTRONIC DIFF [HEME] Stat Lab 07/17/18 19:58 Completed CBC WITH NO DIFF [HEME] Routine Lab 07/18/18 03:28 Completed CK PROFILE [SP CHEM] Q4H Lab 07/17/18 23:38 Completed CK PROFILE [SP CHEM] Q4H Lab 07/18/18 03:28 Completed CK PROFILE [SP CHEM] Q4H Lab 07/18/18 07:00 Ordered CK PROFILE [SP CHEM] Stat Lab 07/17/18 19:58 Completed COMPREHENSIVE METABOLIC PANEL [CHEM] Routine Lab 07/18/18 03:28 Completed COMPREHENSIVE METABOLIC PANEL [CHEM] Stat Lab 07/17/18 19:58 Completed MAGNESIUM [CHEM] Routine Lab 07/18/18 03:28 Completed PRO B-NATRIURETIC PEPTIDE Stat Lab 07/17/18 19:58 Completed PROTIME WITH INR [COAG] Stat Lab 07/17/18 19:58 Completed PTT [COAG] Stat Lab 07/17/18 19:58 Completed TROPONIN T Q4H Lab 07/17/18 23:38 Completed TROPONIN T Q4H Lab 07/18/18 03:28 Completed TROPONIN T Q4H Lab 07/18/18 07:00 Ordered TROPONIN T Stat Lab 07/17/18 19:58 Completed Enoxaparin [Lovenox] Med 07/17/18 21:40 Discontinued 120 mg .ROUTE .STK-MED ONE Enoxaparin [Lovenox] Med 07/17/18 21:25 Discontinued 120 mg SUBQ NOW ONE Furosemide [Lasix] Med 07/17/18 21:34 Discontinued 60 mg IV NOW ONE Hydralazine [Apresoline] Med 07/17/18 22:09 Active 10 mg IV Q4H PRN PRN Hydromorphone [Dilaudid] Med 07/17/18 21:19 Discontinued 1 mg IV NOW ONE Metoprolol [Lopressor] Med 07/17/18 19:09 Discontinued 5 mg IV NOW ONE Morphine Med 07/17/18 21:35 Active 2 mg IV Q2H PRN PRN Nitroglycerin Med 07/17/18 19:08 Discontinued 1 inch TOP NOW ONE Promethazine [Phenergan] Med 07/17/18 21:18 Discontinued 12.5 mg IV NOW ONE Sodium Chloride 0.9% Med 07/17/18 21:18 Discontinued 10 ml INJ NOW ONE CP/SOB/Palp >45 yrs of Age Stat Oth 07/17/18 18:34 Ordered Oxygen Device Routine Oth 07/17/18 21:36 Active Telemetry [OM.EQ] Routine Oth 07/17/18 21:35 Active EKG [EKG] Stat Ther 07/17/18 18:15 Ordered Result Diagrams: 07/18/18 03:28 07/18/18 03:28 - EKG 1 Time of EKG reading by physician:: 18:18 EKG Read and Signed by:: Susanna Thomas EKG Interpretation (*Must complete 3 of following elements*): Abnormal Rate: 101 Rhythm: Sinus Tach with PVC and premature supraventricular complexes [place]: left QRS: RBB Comments: Prolonged QTc - XRAY 1 XRAY Study: Chest Impression: Normal (TECHNIQUE: PA and lateral chest COMMENT: There is cardiomegaly. There are ill-defined opacities in both lower lobes and platelike opacity in the left upper lobe. The appearance of the chest has not changed significantly since 04/21/2018 and these opacities are probably due to fibrosis. IMPRESSION: Cardiomegaly and fibrotic scars. No evidence of acute disease. Electronically signed by Wiliam Cao 07/17/2018 6:59 PM), See EMR Report - CONSULTS/PCP/HOSPITALIST Notification #1 *Consult/PCP/Hospitalist*: Dr Morales Time Discussed: 21:29 Reason/Comments: admission Consult Disposition: Admit (accepts) Departure - Departure Date of Disposition Decision: 07/17/18 Time of Disposition Decision: 23:35 DIAGNOSIS: CAD (coronary artery disease) Qualifiers: Coronary Disease-Associated Artery/Lesion type: unspecified vessel or lesion type [place] vs. transplanted heart: unspecified whether [place] or transplanted heart Associated angina: angina presence unspecified Qualified Code(s): I25.10 - Atherosclerotic heart disease of [place] coronary artery without angina pectoris Diabetes Qualifiers: Diabetes mellitus type: type 2 Diabetes mellitus terminal system operator insulin use: unspecified fdc insulin use status Diabetes mellitus complication status: with unspecified complications Qualified Code(s): E11.8 - Type 2 diabetes mellitus with unspecified complications CHF (congestive heart failure) Qualifiers: Heart failure type: unspecified Heart failure chronicity: acute on chronic Qualified Code(s): I50.9 - Heart failure, unspecified Disposition: ADMITTED INPATIENT 09 Certified Medical Emergency: Emergent Condition: Stable - Critical Care Note This patient required my direct & personal management of CC.: No Attestation - Physician/ [place] Attestation Patient care was provided by Advanced Practice Provider:: No The physician spent face to face time with patient:: Yes Advanced Practice Provider documentation review:: Supervising physician onsite and consulted in the evaluation and care of this patient. The physician did have a face to face encounter with the patient. This chart was documented by the indicated scribe, (Carmelo Avendaño Scribe) and accurately reflects the services I performed and decisions made by me, Sebastián Amaral MD, as attested by the provider's signature.
[2018-07-17] MEDS ORDERED: LOVENOX SUBQ ONE (21:25)
[2018-07-17] MEDS ORDERED: LASIX IV ONE (21:34)
[2018-07-17] MEDS ORDERED: LOVENOX ONE (21:40)
[2018-07-17] MEDS ORDERED: APRESOLINE IV PRN (22:09)
--- NOTE | 2018-07-18 00:31 | HISTORY AND PHYSICAL ---
CHIEF COMPLAINT: Palpitations. HISTORY OF PRESENT ILLNESS: Patient is a 58-year-old morbidly obese female who has a known history of MIs, cardiac stenting, hypertension. She presented to the ER with chest pain. Interestingly, she does note that this pain is not the same as her previous chest pain that led to stents. However, she notes that it is a pressure type pain. States she does not feel well. Denies any fevers or chills. States that her blood pressures had been well-controlled at home. ALLERGIES: Anaprox, Midrin, Toradol, and tramadol all causing a rash. Ibuprofen and Zofran. MEDICATIONS: Coreg 25 twice a day, hydralazine 25 three times a day, lisinopril 20 once a day, Lasix 40 twice a day, Lipitor, spironolactone 25 daily, Imdur 60, and DuoNebs. FAMILY HISTORY: Positive for hypertension. REVIEW OF SYSTEMS: Denies any current cough, congestion, shortness of breath. Denies any fevers, chills, dysuria, frequency, urgency, hesitancy. Denies any polyuria, polydipsia, skin rashes, weight loss or weight gain. Does note that she is having some chest pain midsternal, feels pressure type. Denies any nausea or diaphoresis with it. Denies any radiation of it. PAST MEDICAL HISTORY: Known coronary artery disease, congestive heart failure, hypertension, hyperlipidemia, heart attack x2, history of COPD, chronic reflux, kidney stones, chronic back pain, frequent migraine headaches, diabetes. She has had a cholecystectomy, cardiac stenting x2, hysterectomy. SOCIAL HISTORY: Patient lives at home. She stopped smoking in 2008. Does not drink or use other illicit substances. PHYSICAL EXAMINATION: VITAL SIGNS: Temperature 99.5 degrees, pulse 98, respiratory 20, BP 116/110 to 176/106, saturation 96% on room air. GENERAL: Patient is awake, alert. She is currently in no distress. Overall she is feeling better. HEENT: Normocephalic, atraumatic. [place]. NECK: Supple. No JVD. CARDIOVASCULAR: Regular rate. No appreciable murmurs although distant heart sounds due to body habitus. CHEST: Clear. No crackles, no wheezing although distant due to body habitus. ABDOMEN: Morbidly obese, soft, nondistended. EXTREMITIES: Moves all extremities. She has 2+ edema bilaterally. SKIN: No rashes. ASSESSMENT: 1. Malignant hypertension. 2. Chest pain. 3. Morbid obesity. 4. Diabetes. 5. High cholesterol. 6. Known coronary artery disease. PLAN: We will admit patient the hospital, rule out IN and continue to follow. We will place her in the ICU due to her elevated blood pressures. We will use hydralazine p.r.n. We will restart her home medications and follow. cc: Raffy Morales MD
[2018-07-18] MEDS: MORPHINE IV PRN ×6 (01:29→17:36)
[2018-07-18 03:33] LABS: HEMOGLOBIN 12.5 g/dL (12.0-16.0); MCH 30.3 PG (27-31); MCHC 32.1 g/dL (33-37); MCV 94.7 FL (81-99); MPV 9.7 FL (7.4-10.4); RBC 4.12 XMIL (4.2-5.4); RDW 14.7 % (11.5-14.5); WBC 12.64 X1000 (4.8-10.8)
[2018-07-18 04:11] LABS: AGAP 15; ALBUMIN 3.6 g/dL (3.5-5.0); ALKALINE PHOSPHATASE 87 U/L (32-104); BUN 8 mg/dL (8-22); CALCIUM 9.4 mg/dL (8.8-10.2); CHLORIDE 103 mmol/L (98-107); COSMO 279; CREATININE 0.8 mg/dL (0.5-0.9); ESTIMATED GFR > 60; GLUCOSE 118 mg/dL (70-104); GOT 11 U/L (10-30); GPT 9 U/L (10-36); MAGNESIUM 1.3 mg/dL (1.5-2.7); POTASSIUM 3.4 mmol/L (3.5-5.1); SODIUM 140 mmol/L (136-145); TCO2 23 mmol/L (25-35); TOTAL PROTEIN 7.6 g/dL (6.3-8.3)
--- NOTE | 2018-07-18 05:18 | EKG Report ---
Test Performed on : 07/17/2018 6:18:26 PM Test Reason : chest pain Blood Pressure : / mmHG Vent. Rate : 101 BPM Atrial Rate : 101 BPM P-R Int : 140 ms QRS Dur : 126 ms QT Int : 418 ms P-R-T Axes : 056 -86 070 degrees QTc Int : 542 ms Sinus tachycardia. with premature supraventricular complexes. and premature ventricular complexes. or fusion complexes Possible Left atrial enlargement Left axis deviation Right bundle branch block Anteroseptal infarct (cited on or before 26-NOV-2009) Abnormal ECG When compared with ECG of 21-APR-2018 15:07, fusion complexes are now present premature ventricular complexes. are now present premature supraventricular complexes. are now present Questionable change in initial forces of Anterior leads Unconfirmed Result
[2018-07-18] MEDS ORDERED: PATIENT'S OWN MED PO SCH ×6 (09:00)
[2018-07-18] MEDS ORDERED: MAGNESIUM SULFATE 2 GM/S.W.I. 2 GM/50 ML IVPB IV ONE (09:00)
[2018-07-18] MEDS ORDERED: IMITREX PO PRN (09:45)
[2018-07-18] MEDS ORDERED: ALDACTONE PO SCH (09:45)
[2018-07-18] MEDS ORDERED: IMDUR PO SCH (09:45)
[2018-07-18] MEDS: NORCO-5 PO PRN ×2 (09:46→15:24)
[2018-07-18] MEDS: ZANAFLEX PO SCH ×2 (09:47→20:33)
[2018-07-18] MEDS ORDERED: APRESOLINE PO ONE (10:00)
[2018-07-18] MEDS ORDERED: ZANAFLEX PO ONE (10:15)
[2018-07-18] MEDS ORDERED: IMDUR PO ONE (10:15)
[2018-07-18] MEDS ORDERED: COREG PO ONE (10:15)
[2018-07-18] MEDS ORDERED: LASIX PO ONE (10:15)
[2018-07-18] MEDS ORDERED: KLOR-CON PO ONE (10:36)
[2018-07-18] MEDS ORDERED: MAG-OX PO ONE (10:36)
[2018-07-18] MEDS: APRESOLINE PO SCH ×2 (15:25→20:31)
[2018-07-18] MEDS: LASIX PO SCH (20:32)
[2018-07-18] MEDS: COREG PO SCH (20:32)
[2018-07-18] MEDS ORDERED: ELAVIL PO SCH (21:00)
[2018-07-18] MEDS ORDERED: LIPITOR PO SCH (21:00)
[2018-07-19] MEDS: MORPHINE IV PRN ×3 (00:06→08:20)
[2018-07-19] MEDS: NORCO-5 PO PRN (00:41)
--- NOTE | 2018-07-19 04:09 | PROGRESS NOTE ---
DATE: 07/18/2018 SUBJECTIVE: Patient notes that her chest pain is pretty much improved, but is still mildly present. Denies any nausea, vomiting. Denies diaphoresis. Denies any radiation of said pain. PHYSICAL EXAMINATION: Vital Signs: Temperature 98.7 degrees, pulse 94, respiratory 20, BP 127/76. General: Patient is awake, currently in no respiratory distress. She is pleasant to talk with. HEENT: Normocephalic. Neck: Supple. CARDIOVASCULAR: Regular rate. No murmurs. Chest: Clear. Abdomen: Soft, obese, nondistended. Extremities: Moves all extremities. ASSESSMENT: 1. Malignant hypertension, resolved. 2. Chest pain. 3. Morbid obesity. 4. Diabetes. 5. High cholesterol. PLAN: We will continue patient in the hospital. Continue her home medications. We will follow. Hopefully home either later today or tomorrow, depends on her blood pressure. cc: Raffy Morales MD
[2018-07-19] MEDS: LASIX PO SCH (08:21)
[2018-07-19] MEDS: APRESOLINE PO SCH (08:21)
[2018-07-19] MEDS: ZANAFLEX PO SCH (08:21)
[2018-07-19] MEDS: COREG PO SCH (08:21)
[2018-07-19 09:17] VITALS: BP 116/71
--- NOTE | 2018-07-22 03:48 | DISCHARGE SUMMARY ---
ADMISSION DATE: 07/18/2018 DISCHARGE DATE: 07/19/2018 DISCHARGE DIAGNOSES: 1. Malignant hypertension, resolved. 2. Chest pain, resolved. 3. Morbid obesity, stable. 4. Diabetes, stable. 5. Hypercholesterolemia. 6. Known coronary artery disease. CONSULTATIONS: None. PROCEDURES: None. BRIEF HOSPITAL COURSE: The patient is a 58-year-old female who presented to the hospital with markedly elevated blood pressures of 220 and 200 systolic. She was treated in the ER and then transitioned to the ICU. Thankfully, over the next 24 to 36 hours, her blood pressures remained stable in the 127 to 139 systolic range. Patient's chest pain resolved. DISPOSITION: The patient will be discharged home. She will restart all of her home medications without any changes. She will continue to follow up with her primary care, Dr. Abel Baez, in 1 week to recheck her blood pressure. I discussed with the patient to avoid stimulants including [id number] Sudafed and will follow. cc: Raffy Morales MD
== END 2018-07-19 10:40 | disposition home or self-care (01) | DRG 292 ==
LOC: P.EDIPHOLD 18:10 → P.ED 18:10 → P.MEDSURG 07-18 00:02 → P.ICU 07-18 00:52
PROVIDERS: ATTEND Family Medicine
CPT/HCPCS: 71020; 71046; 80053; 82550; 83735; 83880; 84484; 85025; 85027; 85610; 85730; 93005; 96372; 96374; 96375; 99285; A9270; J1170; J1650; J1940; J2270; J2550; J3475

== ENCOUNTER 2018-11-08 00:19 | Observation (INO) ==
[2018-11-08] MEDS ORDERED: DUONEB (A & A) INH ONE (00:44)
[2018-11-08] MEDS ORDERED: SOLU-MEDROL IV ONE (00:44)
[2018-11-08 01:25] LABS: BASO# 0.02 X1000 (0.0-0.2); BASO% 0.1 % (0.0-0.8); EOS# 0.18 X1000 (0.0-0.7); EOS% 1.1 % (0.0-10.0); HEMATOCRIT 35.7 % (37.0-47.0); HEMOGLOBIN 11.5 g/dL (12.0-16.0); IMM GRAN# 0.03 X1000 (0.0-0.04); IMM GRAN% 0.2 % (0.0-0.5); LYMPH# 2.27 X1000 (1.2-3.4); LYMPH% 14.2 % (20.5-51.1); MCH 30.2 PG (27-31); MCHC 32.2 g/dL (33-37); MCV 93.7 FL (81-99); MONO# 0.85 X1000 (0.11-0.59); MONO% 5.3 % (1.7-9.3); MPV 10.5 FL (7.4-10.4); NEUT# 12.67 X1000 (1.4-6.5); NEUT% 79.1 % (42.2-75.2); PLT 255 X1000 (130-400); RBC 3.81 XMIL (4.2-5.4); RDW 15.2 % (11.5-14.5); WBC 16.02 X1000 (4.8-10.8)
--- NOTE | 2018-11-08 02:33 | PROVIDER DOCUMENTATION ---
This chart was entered by Sara Damon Scribe, acting as scribe for Paco Cabezas MD. HPI-Respiratory General - General Chief Complaint: Shortness of Breath Stated Complaint: SOB Time Seen by Provider: 11/08/18 00:34 Source: patient Allergies/Adverse Reactions: Patient Allergies Allergy/AdvReac Type Severity Reaction Status Date / Time naproxen sodium * Allergy Intermediate RASH Verified 11/08/18 00:34 [From Anaprox] dichloralphenazone AdvReac Mild RASH Verified 11/08/18 00:34 [From MIDRIN] isometheptene mucate * AdvReac Mild RASH Verified 11/08/18 00:34 [From MIDRIN] ketorolac tromethamine * AdvReac Mild RASH Verified 11/08/18 00:34 [From Toradol] naproxen [From Naprosyn] AdvReac Mild RASH Verified 11/08/18 00:34 tramadol HCl * [From Ultram] AdvReac Mild RASH Verified 11/08/18 00:34 acetaminophen AdvReac Unknown Verified 11/08/18 00:34 ibuprofen AdvReac Unknown Verified 11/08/18 00:34 ondansetron HCl * AdvReac NAUSEA/VOMI Verified 11/08/18 00:34 [From Zofran (as TING hydrochloride)] Home Medications: Home Medication List Medication Instructions Recorded Confirmed Last Taken Type Carvedilol [Coreg] 25 mg PO BID #60 tablet 06/08/14 11/08/18 04/21/18 09:00 Rx Hydralazine HCl 25 mg PO TID@0900,1500,2100 06/08/14 11/08/18 04/21/18 13:30 History Furosemide [Lasix] 40 mg PO BID 01/09/16 11/08/18 04/21/18 09:00 History Atorvastatin Calcium [Lipitor] 40 mg PO QHS 03/16/17 11/08/18 04/20/18 21:00 History Isosorbide Mononitrate [Isosorbide 60 mg PO DAILY 07/07/17 11/08/18 04/21/18 09:00 History Mononitrate ER] Albuterol 2.5MG/Ipratrop 0.5MG 3 ml INH Q2H PRN PRN #120 neb 0111/08/18 12/19/17 Rx [Duoneb (A & A)] 3 ML Tizanidine HCl 4 mg PO BID 07/17/18 11/08/18 Unknown History - History of Present Illness-Resp Nature of Presenting Problem: 58 y/o female presents to ED with SOB and nausea onset this morning and worsening over the past 3 hours. denies any cough or CP or fever. Pt reports headache that radiates into her neck onset 1 week ago. Pt also complains of chronic back pain. Pt has hx COPD. Pt is alert and oriented. Quality of Pain: reports: aching Severity in ED: reports: mild Onset/Duration: reports: 1 week ago, this morning Timing: reports: still present, getting worse Context: reports: other (hx COPD) Exposure: reports: other (hx COPD) Cough Quality/Degree: reports: no cough Episode Frequency: chronic episodes (hx COPD) Current Respiratory Medication Therapy: Initiated see nurses note Modifying Factors: improves with: nothing Associated Symptoms: reports: headache, shortness of breath, short of breath, other (nausea; back pain) Similar Symptoms Previously?: No Recently seen or treated by another doctor?: No Review of Systems - Adult - REVIEW OF SYSTEMS - ADULT Constitutional: denies: chills, fever Eyes: reports: no symptoms reported Ears, Nose, Mouth & Throat: reports: no symptoms reported Cardiovascular: denies: chest pain, palpitations Respiratory: reports: shortness of breath. denies: cough Gastrointestinal: reports: nausea. denies: abdominal pain, diarrhea, vomiting Genitourinary: reports: no symptoms reported Musculoskeletal: reports: back pain. denies: joint pain Integumentary: reports: no symptoms reported Neurological: reports: headache/migraines. denies: dizziness/vertigo, seizure Psychiatric: reports: no symptoms reported Endocrine: reports: no symptoms reported Hematologic/Lymphatic: reports: no symptoms reported Allergic/Immunologic: reports: no symptoms reported All Other Systems: Reviewed and Negative Past History - Adult - PAST MEDICAL HISTORY-ADULT Review of Records: reports: Old Records Reviewed, Nursing Assessment Review, Medications Reviewed Major Childhood Illnesses: reports: denies history Cardiovascular: reports: CAD, CHF, HTN, hyperlipidemia, PA (x2) Respiratory: reports: asthma, COPD Gastrointestinal: reports: GERD Obstetrical/Gynecological: reports: denies history Genitourinary: reports: kidney stones Musculoskeletal: reports: chronic pain (back) Neurological: reports: CVA, headaches/migraines (tension headaches) Psychiatric: reports: anxiety Endocrine/Immune: reports: Diabetes Other Conditions: reports: denies history Additional History: Freq ER visits - PRIOR SURGERIES/PROCEDURES Surgical/Procedure History: reports: cholecystectomy, cardiac stent (X2 ), hysterectomy, - PRIOR HOSPITALIZATIONS Prior Hospitalizations: reports: for similar symptoms, for other non-related - IMMUNIZATION STATUS Childhood Immunizations: See Nurse Assessment Flu Vaccine: See Nurse Assessment - FAMILY HISTORY Family History: reviewed, not pertinent - SOCIAL HISTORY Smoking: quit greater than 1 year Substance Use: none/never Alcohol Use Frequency: never Living Situation: family Physical Exam-General - PHYSICAL EXAM-ADULT Initial Vital Signs Reviewed: Yes - CONSTITUTIONAL General Appearance: appears well, alert, no apparent distress, obese (morbidly) - EYES Eyes: PERRL/EOMI, pink conjunctivae - HEAD, EARS, NOSE, MOUTH & THROAT HENMT: normocephalic/atraumatic, moist mucous membranes, normal ENT inspection - NECK Neck: non-tender, full range of motion - RESPIRATORY Respiratory: chest non-tender, wheezing, other (decreased air entry bilaterally) - CARDIOVASCULAR Cardiovascular: normal peripheral pulses, regular rate, rhythm - GASTROINTESTINAL (ABDOMEN) Abdominal Exam: normal bowel sounds, non tender, soft - MUSCULOSKELETAL Back Exam: normal inspection, no CVA tenderness Extremity: normal range of motion, non-tender, normal gait, swelling (1 + pitting edema of bilateral lower extremities) - SKIN Integumentary: normal color, warm/dry - NEUROLOGIC Neurologic: grossly normal - PSYCHIATRIC Psych/Mental Status: normal mood/affect, normal thought content, normal thought process - HEART Score HEART Score: History: Slightly Suspicious HEART Score: ECG: Non-Specific Repolarization Disturbance/LBBB/PM HEART Score: Age: 45-65 Years HEART Score: Risk Factors for Atherosclerotic Disease: > or = 3 Risk Factors or History of Atherosclerotic Disease HEART Score: Troponin: < or = Normal Limit Total HEART Score:: 4 Progress - PLAN OF CARE/RESULTS Progress/Plan/Lab Results: Vital Signs - 8 hr 11/08/18 00:29 11/08/18 01:07 11/08/18 04:14 Temperature 98.9 F Pulse Rate 94 H 81 81 Respiratory Rate 18 20 18 Blood Pressure 136/120 145/78 O2 Sat by Pulse Oximetry 97 96 98 Laboratory Results - last 24 hr 11/08/18 11/08/18 11/08/18 01:12 01:12 01:12 WBC 16.02 H RBC 3.81 L Hgb 11.5 L Hct 35.7 L MCV 93.7 MCH 30.2 MCHC 32.2 L RDW Std Deviation 15.2 H Plt Count 255 MPV 10.5 H Immature Gran % (Auto) 0.2 Neut % (Auto) 79.1 H Lymph % (Auto) 14.2 L Holmes % (Auto) 5.3 Eos % (Auto) 1.1 Baso % (Auto) 0.1 Immature Gran # (Auto) 0.03 Neut # (Auto) 12.67 H Lymph # (Auto) 2.27 Holmes # (Auto) 0.85 H Eos # (Auto) 0.18 Baso # (Auto) 0.02 Sodium 139 Potassium 4.5 Chloride 108 H Carbon Dioxide 22 L Anion Gap 9 BUN 12 Creatinine 0.8 Estimated GFR/1.73 m2 > 60 BUN/Creatinine Ratio 15 Glucose 136 H Calculated Osmolality 279 Calcium 8.7 L Total Bilirubin 0.20 AST 28 ALT 61 H Alkaline Phosphatase 111 H Troponin T Vgb-I-Nnszriwrfjz Pept 327 H Total Protein 7.5 Albumin 3.6 Globulin 4.0 Albumin/Globulin Ratio 1.0 11/08/18 01:12 WBC RBC Hgb Hct MCV MCH MCHC RDW Std Deviation Plt Count MPV Immature Gran % (Auto) Neut % (Auto) Lymph % (Auto) Holmes % (Auto) Eos % (Auto) Baso % (Auto) Immature Gran # (Auto) Neut # (Auto) Lymph # (Auto) Holmes # (Auto) Eos # (Auto) Baso # (Auto) Sodium Potassium Chloride Carbon Dioxide Anion Gap BUN Creatinine Estimated GFR/1.73 m2 BUN/Creatinine Ratio Glucose Calculated Osmolality Calcium Total Bilirubin AST ALT Alkaline Phosphatase Troponin T < 0.010 Opz-T-Redbmktfkyq Pept Total Protein Albumin Globulin Albumin/Globulin Ratio Orders Category Date Time Status Admit - [facility] Routine AdmDCTranf 11/08/18 04:20 Active CHEST-PORTABLE [RAD] Stat Exams 11/08/18 00:44 Taken CBC WITH DIFF [HEME] Stat Lab 11/08/18 01:12 Completed COMPREHENSIVE METABOLIC PANEL [CHEM] Stat Lab 11/08/18 01:12 Completed PRO B-NATRIURETIC PEPTIDE Stat Lab 11/08/18 01:12 Completed TROPONIN T Stat Lab 11/08/18 01:12 Completed Albuterol 2.5MG/Ipratrop 0.5MG [Duoneb (A & A)] Med 11/08/18 00:44 Discontinued 3 ml INH NOW ONE Azithromycin 500 mg/Ns [Zithromax 500 mg/Ns] Med 11/08/18 02:43 Discontinued 500 mg in 250 ml IV NOW CefTRIAXONE [Rocephin] 1 gm Med 11/08/18 02:42 Discontinued 0.9% Sodium Chloride Inj [Ns] 50 ml IV NOW Methylprednisolone Sod Succ [Solu-Medrol] Med 11/08/18 00:44 Discontinued 125 mg IV NOW ONE Morphine Med 11/08/18 03:27 Discontinued 2 mg IV NOW ONE Aerosol Treatments Routine Oth 11/08/18 00:45 Completed Aerosol Treatments Stat Oth 11/08/18 00:45 Completed Pulse Oximetry Stat Oth 11/08/18 00:44 Completed EKG [EKG] Stat Ther 11/08/18 02:49 Draft Transfer/Admit Order [TRANSFER] Routine Transfer 11/08/18 05:25 Completed pt feeling better, labs and imaging results d/w pt. will admit, d/w Dr Morales Result Diagrams: 11/08/18 01:12 11/08/18 01:12 - XRAY 1 XRAY Study: Chest Impression: See EMR Report - CONSULTS/PCP/HOSPITALIST Notification Time Discussed: 02:35 Consult Disposition: Admit Departure - Departure Date of Disposition Decision: 11/08/18 Time of Disposition Decision: 02:45 DIAGNOSIS: Shortness of breath, COPD exacerbation Disposition: ADMITTED INPATIENT 09 Certified Medical Emergency: Emergent Condition: Stable - Critical Care Note This patient required my direct & personal management of CC.: No Attestation - Physician/ [place] Attestation Patient care was provided by Advanced Practice Provider:: No The physician spent face to face time with patient:: Yes Advanced Practice Provider documentation review:: Supervising physician onsite and consulted in the evaluation and care of this patient. The physician did have a face to face encounter with the patient. This chart was documented by the indicated scribe, (Sara Damon Scribe) and accurately reflects the services I performed and decisions made by me, Paco Cabezas MD, as attested by the provider's signature.
[2018-11-08] MEDS ORDERED: ROCEPHIN 1 GM in NS 50 ML IV ONE (02:42)
[2018-11-08] MEDS ORDERED: ZITHROMAX 500 MG/NS 500 MG/250 ML IVPB IV ONE (02:43)
[2018-11-08 03:01] LABS: AGAP 9; ALBUMIN 3.6 g/dL (3.5-5.0); ALKALINE PHOSPHATASE 111 U/L (32-104); BUN 12 mg/dL (8-22); CALCIUM 8.7 mg/dL (8.8-10.2); CHLORIDE 108 mmol/L (98-107); COSMO 279; CREATININE 0.8 mg/dL (0.5-0.9); ESTIMATED GFR > 60; GLUCOSE 136 mg/dL (70-104); GOT 28 U/L (10-30); GPT 61 U/L (10-36); POTASSIUM 4.5 mmol/L (3.5-5.1); SODIUM 139 mmol/L (136-145); TCO2 22 mmol/L (25-35); TOTAL PROTEIN 7.5 g/dL (6.3-8.3)
[2018-11-08] MEDS ORDERED: MORPHINE IV ONE ×2 (03:27→12:04)
--- NOTE | 2018-11-08 06:06 | EKG Report ---
Test Performed on : 11/08/2018 03:10:44 AM Test Reason : CP Blood Pressure : / mmHG Vent. Rate : 078 BPM Atrial Rate : 078 BPM P-R Int : 140 ms QRS Dur : 130 ms QT Int : 432 ms P-R-T Axes : 052 -80 251 degrees QTc Int : 492 ms Normal sinus rhythm. Left axis deviation Right bundle branch block Septal infarct (cited on or before 26-NOV-2009) T wave abnormality, consider inferolateral ischemia Abnormal ECG When compared with ECG of 17-JUL-2018 18:18, Significant changes have occurred Confirmed by Israel Espitia MD ([id number]) on 11/10/2018 4:18:23 AM
--- NOTE | 2018-11-08 06:21 | Diag Imaging Result Doc PS360 ---
EXAM: CHEST-PORTABLE HISTORY: cough TECHNIQUE: Chest single view COMPARISON: 07/17/2018 FINDINGS: The lungs are well expanded. The heart is enlarged. The vessels are not distended. There are no infiltrates. No effusion identified.Orthopedic replacement of the left shoulder. IMPRESSION: Cardiomegaly. No pneumonia. Electronically signed by Krish Call 11/08/2018 6:18 AM
[2018-11-08] MEDS ORDERED: DUONEB (A & A) INH PRN (07:20)
[2018-11-08] MEDS ORDERED: ROCEPHIN 1 GM in NS 50 ML IV SCH (07:30)
[2018-11-08 08:26] LABS: HEMOGLOBIN A1C 5.6 % (4.8-6.0)
[2018-11-08] MEDS ORDERED: COREG PO SCH (09:00)
[2018-11-08] MEDS ORDERED: IMDUR PO SCH (09:00)
[2018-11-08] MEDS ORDERED: LASIX PO SCH (09:00)
[2018-11-08] MEDS ORDERED: ZANAFLEX PO SCH (09:00)
[2018-11-08] MEDS: APRESOLINE PO SCH ×2 (10:22→15:00)
[2018-11-08] MEDS ORDERED: PNEUMOVAX 23 IM ONE (10:59)
[2018-11-08 12:25] LABS: BLOOD TYPE ARTERIAL; HCO3-(ACT) 22.5 mmoll (20.0-26.0); METHB 0.7 % (0.0-1.5); O2(CT) 15.8 mL/dL (15.0-23.0); PCO2(98.6) 45 mmHg (35-45); PO2(98.6) 63 mmHg (60-100); SAMPLE BLOOD; SAO2 96.4 % (95.0-100.0); THB 12.1 g/dL (11.5-17.4); pH(98.6) 7.32 (7.35-7.45)
[2018-11-08 12:29] LABS: ALLEN TEST NO; MODALITY CANNULA
[2018-11-08 12:30] LABS: URINE SOURCE CLEAN CATCH
[2018-11-08] MEDS: SOLU-MEDROL IV SCH ×2 (12:36→17:30)
[2018-11-08 12:37] LABS: BILIRUBIN URINE NEGATIVE (NEGATIVE); BLOOD URINE NEGATIVE (NEGATIVE); CLARITY CLEAR (CLEAR); COLOR YELLOW; GLUCOSE URINE NEGATIVE (NEGATIVE); KETONE URINE NEGATIVE (NEGATIVE); LEUKOCYTES URINE 2+ (NEGATIVE); NITRITE URINE POSITIVE (NEGATIVE); PROTEIN URINE NEGATIVE (NEGATIVE); SP GRAVITY URINE 1.015; UROBILINOGEN URINE NORMAL
[2018-11-08 12:41] LABS: URINE BACTERIA 3+ /HFP; URINE CAST NONE SEEN /LPF; URINE CRYSTAL NONE SEEN /HPF; URINE EPITHELIAL CELLS <10 /HPF (<10); URINE RBC <10 /HPF (<10); URINE WBC 20-40 /HPF (<10); URINE YEAST NONE SEEN /HPF
--- NOTE | 2018-11-08 13:30 | HISTORY AND PHYSICAL ---
CHIEF COMPLAINT: Headache and shortness of breath. HISTORY OF PRESENT ILLNESS: Ms. Diez is a 58-year-old female with history of morbid obesity, COPD, obstructive sleep apnea, noncompliant with CPAP, congestive heart failure, systolic, with an EF of 30%, who presented to the ER with headache and shortness of breath. She said she has had headaches for 35 years and has even seen a neurologist and has been on multiple pain medications that essentially are ineffective. She reports these as tension type headaches that encompass both sides of the head, is squeezing in nature, radiating down to the neck. There is no loss or change of vision. No facial drooping. No unilateral weakness. No loss of sensation or bowel or bladder incontinence. She has also been having some more shortness of breath without fever or cough. She came to the ER for evaluation. Labs were done. She was noted to have an elevated white count at 16,000, but on review of history, she has a fairly chronically elevated white count. Chest x-ray showed cardiomegaly but no other abnormalities. An EKG is pending. Her vital signs are stable. She will be admitted for further treatment and evaluation. PAST MEDICAL HISTORY: 1. Systolic heart failure with EF of 30%. 2. Coronary artery disease. 3. Morbid obesity. 4. COPD. 5. Obstructive sleep apnea, noncompliant with CPAP. 6. Hypertension. 7. GERD. 8. Hyperlipidemia. 9. Chronic headache and neck pain. PAST SURGICAL HISTORY: She had a cholecystectomy, section, hysterectomy, coronary stenting, shoulder surgery. SOCIAL HISTORY: She is a reformed smoker. No current tobacco, alcohol or drug use. FAMILY HISTORY: Notable for type 2 diabetes and coronary disease. REVIEW OF SYSTEMS: A 14-point review of systems is obtained and found to be negative with the exception of the HPI. ALLERGIES: Anaprox, Midrin, Toradol, Naproxen, Ultram, acetaminophen, ibuprofen and Zofran. HOME MEDICATIONS: DuoNeb 3 mL inhaled q.2 hours p.r.n., Lipitor 40 mg p.o. at bedtime, Coreg 25 mg p.o. b.i.d., Lasix 40 mg p.o. b.i.d., hydralazine 25 mg p.o. t.i.d., isosorbide mononitrate 60 mg daily, tizanidine 4 mg b.i.d. REVIEW OF SYSTEMS: A 14-point review of systems was obtained and found to be negative with the exception of the HPI. PHYSICAL EXAMINATION: VITAL SIGNS: Blood pressure is 141/68, heart rate 90, respiratory rate 20, O2 saturation is 100% on nasal cannula 3 L, temperature is 97.8. GENERAL: Morbidly obese female lying in the hospital bed, no acute distress. NEUROLOGICAL: Awake, alert and oriented, follows commands without focal deficits. HEENT: Head is atraumatic and normocephalic. Pupils are equal, round and reactive to light. Oral mucosa is moist. NECK: Unable to be thoroughly evaluated due to body habitus. CHEST: Mild crackles in the lung bases. CARDIOVASCULAR: Regular rate and rhythm. S1 and S2 noted. GASTROINTESTINAL: Soft, nontender and nondistended. Bowel sounds positive. EXTREMITIES: No edema. Pulses 1+ bilaterally. DIAGNOSTIC DATA: Chest x-ray shows cardiomegaly. Nothing else acute. EKG shows sinus rhythm with a right bundle branch block and left axis deviation, nonspecific diffuse T and ST abnormalities. WBC is 16.02, hemoglobin 11.5, hematocrit 35.7, platelet count 255. ABG on nasal cannula showed pH of 7.32, CO2 of 45, O2 of 63, bicarb 22.5. Sodium is 139, potassium 4.5, chloride 108, CO2 is 22, anion gap 9, BUN is 12, creatinine 0.8, glucose 136. Hemoglobin A1c is 5.6. Calcium 8.7. AST is 28, ALT is 61, alkaline phosphatase 111. Troponin negative x2 sets. ProBNP is 327. TSH is 0.36. UA does show positive nitrites, 3+ bacteria, 2+ WBC and less than 10 epi cells. ASSESSMENT AND PLAN: 1. Acute on chronic/intractable headache. The patient states this is her typical chronic pain. She has no focal deficits. No vision changes. She has had worse headaches in the past. We will try a low dose of IV morphine. She is allergic to most NSAIDs. She did ask for Dilaudid by name. We will continue medications as needed. 2. Chronic obstructive pulmonary disease exacerbation. We will add azithromycin and Rocephin as she has a white count, IV steroids. Breathing treatments, aggressive pulmonary toilet. 3. Mild lactic acidosis. ABG shows very slightly elevated lactate. We will go ahead and draw blood cultures and redraw lactate later on today. We will be cautious with any IV fluids at this time because she does have a history of systolic heart failure, but she is afebrile without tachycardia. 4. Systolic heart failure. Currently the patient is euvolemic. We will continue her home Lasix. Follow I's and O's and daily weights. She is followed by Dr. Yañez at the [facility]. 5. Reports of diabetes mellitus. The patient has a hemoglobin A1c of 5.6, so we will hold off on any diabetic treatment for now. We will ask her to watch her blood sugars at home, follow up with her regular doctor. 6. Hypertension. Continue home medications. 7. Morbid obesity. We have advised the patient on lifestyle modification and possibly follow up for gastric bypass. 8. DVT prophylaxis with SCDs and TEDs. Further recommendations to follow. Dictated by JOYCE Vazquez for Raffy Morales MD cc: JOYCE Vazquez MD
[2018-11-08 16:38] VITALS: BP 152/92
--- NOTE | 2018-11-08 18:55 | HISTORY AND PHYSICAL ---
Patient seen and examined by myself. Full note dictated and discussed with nurse practitioner. Patient presented to the hospital with chief complaint of shortness of breath. Denies any chest pains or fever. States that she has a headache that is radiating to her neck and the only thing that works for it is Dilaudid. We will admit patient in the hospital and place her on treatment for her shortness of breath. She has a known history of coronary artery disease, congestive heart failure. We will treat and follow. Please see full note. The patient appears to have a COPD exacerbation. cc: Raffy Morales MD
[2018-11-08] MEDS ORDERED: LIPITOR PO SCH (21:00)
[2018-11-09] MEDS ORDERED: ROCEPHIN 1 GM in NS 50 ML IV SCH (06:00)
[2018-11-09] MEDS ORDERED: ZITHROMAX 500 MG/NS 500 MG/250 ML IVPB IV SCH (06:00)
--- NOTE | 2018-11-09 13:56 | DISCHARGE SUMMARY ---
ADMISSION DATE: 11/08/2018 DISCHARGE DATE: 11/08/2018 HOSPITAL COURSE: The patient left AMA. It appears to be because she wanted IV Dilaudid for her headache. She refused any other treatment leading up to that. We discussed with the patient that she is short of breath and IV pain medicines certainly could worsen that. We attempted to discuss with her that she is septic and certainly could from her current infection, and Dilaudid would not be a treatment for that. Patient declined reasoning and left AMA. cc: Raffy Morales MD
== END 2018-11-08 18:43 | disposition left against medical advice (07) ==
LOC: P.MEDSURG 00:19 → P.ED 00:19 → P.MEDSURG 05:47
PROVIDERS: ATTEND Family Medicine
CPT/HCPCS: 71010; 71045; 80053; 81001; 82550; 82805; 83036; 83605; 83735; 83880; 84443; 84484; 85025; 87040; 87088; 93005; 93010; 94640; A9270; J0456; J0696; J2270; J2920; J2930

== ENCOUNTER 2019-03-07 07:44 | Observation (INO) ==
[2019-03-07] MEDS ORDERED: DILAUDID IV ONE ×2 (08:09→13:02)
[2019-03-07] MEDS ORDERED: REGLAN IV ONE ×2 (08:10→13:36)
[2019-03-07] MEDS ORDERED: DUONEB (A & A) INH ONE (08:10)
[2019-03-07 08:15] LABS: BE -1.2 mmoll (-3.0-3.0); BLOOD TYPE ARTERIAL; HCO3-(ACT) 23.9 mmoll (20.0-26.0); METHB 0.9 % (0.0-1.5); O2(CT) 16.1 mL/dL (15.0-23.0); O2HB 92.1 % (95.0-99.0); PCO2(98.6) 39 mmHg (35-45); PO2(98.6) 78 mmHg (60-100); SAMPLE BLOOD; THB 12.4 g/dL (11.5-17.4); pH(98.6) 7.39 (7.35-7.45)
[2019-03-07 08:19] LABS: MODALITY ROOM AIR
[2019-03-07 08:24] LABS: INR 0.93; PROTIME 12.9 Seconds (11.0-16.0); PTT 25.2 Seconds (22.3-41.8)
[2019-03-07 08:27] LABS: ALLEN TEST YES
[2019-03-07 08:27] LABS: BASO# 0.01 X1000 (0.0-0.2); BASO% 0.1 % (0.0-0.8); EOS# 0.29 X1000 (0.0-0.7); EOS% 3.1 % (0.0-10.0); HEMATOCRIT 39.4 % (37.0-47.0); HEMOGLOBIN 12.3 g/dL (12.0-16.0); IMM GRAN# 0.03 X1000 (0.0-0.04); IMM GRAN% 0.3 % (0.0-0.5); LYMPH# 2.83 X1000 (1.2-3.4); LYMPH% 29.9 % (20.5-51.1); MCH 31.1 PG (27-31); MCHC 31.2 g/dL (33-37); MCV 99.7 FL (81-99); MONO# 0.77 X1000 (0.11-0.59); MONO% 8.1 % (1.7-9.3); MPV 11.3 FL (7.4-10.4); NEUT# 5.53 X1000 (1.4-6.5); NEUT% 58.5 % (42.2-75.2); PLT 231 X1000 (130-400); RBC 3.95 XMIL (4.2-5.4); RDW 16.2 % (11.5-14.5); WBC 9.46 X1000 (4.8-10.8)
[2019-03-07 08:37] LABS: AGAP 12; ALBUMIN 3.5 g/dL (3.5-5.0); ALKALINE PHOSPHATASE 86 U/L (32-104); BUN 11 mg/dL (8-22); CALCIUM 8.9 mg/dL (8.8-10.2); CHLORIDE 108 mmol/L (98-107); CK PROFILE 68 U/L (24-173); COSMO 288; CREATININE 0.9 mg/dL (0.5-0.9); ESTIMATED GFR > 60; GLUCOSE 163 mg/dL (70-104); GOT 13 U/L (10-30); GPT 14 U/L (10-36); POTASSIUM 4.1 mmol/L (3.5-5.1); SODIUM 143 mmol/L (136-145); TCO2 23 mmol/L (25-35); TOTAL BILIRUBIN < 0.15 mg/dL (0.20-1.00); TOTAL PROTEIN 6.2 g/dL (6.3-8.3)
--- NOTE | 2019-03-07 08:58 | PROVIDER DOCUMENTATION ---
HPI-Chest Pain - General Chief Complaint: Chest Pain Stated Complaint: CP SOB Time Seen by Provider: 03/07/19 08:07 Source: patient Allergies/Adverse Reactions: Patient Allergies Allergy/AdvReac Type Severity Reaction Status Date / Time naproxen sodium * Allergy Intermediate RASH Verified 03/07/19 07:56 [From Anaprox] dichloralphenazone AdvReac Mild RASH Verified 03/07/19 07:56 [From MIDRIN] isometheptene mucate * AdvReac Mild RASH Verified 03/07/19 07:56 [From MIDRIN] ketorolac tromethamine * AdvReac Mild RASH Verified 03/07/19 07:56 [From Toradol] naproxen [From Naprosyn] AdvReac Mild RASH Verified 03/07/19 07:56 tramadol HCl * [From Ultram] AdvReac Mild RASH Verified 03/07/19 07:56 acetaminophen AdvReac RASH Verified 03/07/19 07:56 ibuprofen AdvReac RASH Verified 03/07/19 07:56 morphine AdvReac HEADACHE Verified 03/07/19 07:56 ondansetron HCl * AdvReac NAUSEA/VOMI Verified 03/07/19 07:56 [From Zofran (as TING hydrochloride)] Home Medications: Home Medication List Medication Instructions Recorded Confirmed Last Taken Type Carvedilol [Coreg] 25 mg PO BID #60 tablet 06/08/14 11/08/18 11/07/18 21:00 Rx Hydralazine HCl 25 mg PO TID@0900,1500,2100 06/08/14 11/08/18 04/21/18 13:30 History Furosemide [Lasix] 40 mg PO BID 01/09/16 11/08/18 11/07/18 21:00 History Atorvastatin Calcium [Lipitor] 40 mg PO QHS 03/16/17 11/08/18 04/20/18 21:00 History Isosorbide Mononitrate [Isosorbide 60 mg PO DAILY 07/07/17 11/08/18 04/21/18 09:00 History Mononitrate ER] Albuterol 2.5MG/Ipratrop 0.5MG 3 ml INH Q2H PRN PRN #120 neb 07/12/17 11/08/18 11/07/18 23:00 Rx [Duoneb (A & A)] Tizanidine HCl 4 mg PO BID 07/17/18 11/08/18 Unknown History Alprazolam [Xanax] 2 mg PO QHS 11/08/18 11/08/18 Unknown History Amitriptyline [Elavil] 30 - 40 mg PO HS 11/08/18 11/08/18 Unknown History Codeine/Butalbital/ASA/Caffein 30 mg PO Q8H PRN PRN 11/08/18 11/08/18 Unknown History [Fiorinal-Cod [id number] Cap] Albuterol Sulfate Inhaler 2 puff INH Q6H PRN #1 inhaler 12/12/18 Unknown Rx [Ventolin Hfa] Azithromycin [Zithromax Z-Jay] 250 mg PO DIRECTED #1 pkg 12/12/18 Unknown Rx Levofloxacin [Levaquin] 500 mg PO DAILY #10 tab 12/17/18 Unknown Rx Prednisone 60 mg PO DAILY #15 tab 12/17/18 Unknown Rx Acetaminophen with Codeine 1 ea PO Q4H PRN PRN #14 tab 01/10/19 Unknown Rx [Tylenol with Codeine #3] Albuterol 2.5MG/Ipratrop 0.5MG 3 ml INH Q4-6H PRN PRN #60 neb 01/10/19 Unknown Rx [Duoneb] Prednisone 10 mg PO BID #10 tab 01/10/19 Unknown Rx Azithromycin [Zithromax Z-Jay] 250 mg PO DIRECTED #1 pkg 02/06/19 Unknown Rx Prednisone 50 mg PO DAILY #5 tab 02/06/19 Unknown Rx Acetaminophen with Codeine 1 ea PO Q6H PRN PRN #14 tab 02/09/19 Unknown Rx [Tylenol with Codeine #3 Tablet] Fluticasone/Umeclidin/Vilanter 1 ea INHALATION DAILY #30 02/09/19 Unknown Rx [Trelegy Ellipta 100-62.5-25] blst.w.dev Nortriptyline HCl 25 mg PO HS #30 cap 02/09/19 Unknown Rx Acetaminophen with Codeine 1 ea PO Q6H PRN PRN #20 tab 02/20/19 Unknown Rx [Tylenol with Codeine #3 Tablet] - History of Present Illness-CP Nature of Presenting Problem: co sob x 3 days. 0500 upper left substernal cp w. radiation to left arm and thru to back. 10/10 pain. took asa 325 x 2 and sl nitro w/ 10 min improvment. cough w/ clear sputum, no fever, Tx for CHR, COPD, ICVD,HTN by Dr Knox, velvet SOW, [facility]. Review of Systems - Adult - REVIEW OF SYSTEMS - ADULT Constitutional: reports: no symptoms reported. denies: chills, fever Eyes: reports: no symptoms reported Ears, Nose, Mouth & Throat: reports: no symptoms reported Cardiovascular: reports: see HPI Respiratory: reports: see HPI Gastrointestinal: reports: no symptoms reported, nausea. denies: vomiting Genitourinary: reports: no symptoms reported Musculoskeletal: reports: no symptoms reported Integumentary: reports: no symptoms reported Neurological: reports: no symptoms reported. denies: syncope Psychiatric: reports: no symptoms reported Endocrine: reports: no symptoms reported Hematologic/Lymphatic: reports: no symptoms reported Allergic/Immunologic: reports: no symptoms reported All Other Systems: Reviewed and Negative Past History - Adult - PAST MEDICAL HISTORY-ADULT Review of Records: reports: Nursing Assessment Review, Medications Reviewed, Social history reviewed & non-contributory. Major Childhood Illnesses: reports: denies history Cardiovascular: reports: CAD, CHF, HTN, hyperlipidemia, [place] (x2) Respiratory: reports: asthma, COPD Gastrointestinal: reports: GERD Obstetrical/Gynecological: reports: denies history Genitourinary: reports: kidney stones Musculoskeletal: reports: chronic pain (back) Neurological: reports: CVA, headaches/migraines (tension headaches) Psychiatric: reports: anxiety Endocrine/Immune: reports: Diabetes Other Conditions: reports: denies history Additional History: Freq ER visits - PRIOR SURGERIES/PROCEDURES Surgical/Procedure History: reports: cholecystectomy, cardiac stent (X2 ), hysterectomy, - PRIOR HOSPITALIZATIONS Prior Hospitalizations: reports: for similar symptoms, for other non-related - IMMUNIZATION STATUS Childhood Immunizations: See Nurse Assessment Flu Vaccine: See Nurse Assessment - FAMILY HISTORY Family History: reviewed, not pertinent Physical Exam-General - PHYSICAL EXAM-ADULT Initial Vital Signs Reviewed: Yes (tachypn) - CONSTITUTIONAL General Appearance: alert, mild distress - EYES Eyes: PERRL/EOMI - HEAD, EARS, NOSE, MOUTH & THROAT HENMT: normocephalic/atraumatic, moist mucous membranes - NECK Neck: non-tender, full range of motion, supple - RESPIRATORY Respiratory: chest non-tender, lungs clear, normal breath sounds, no accessory muscle use, respiratory distress, wheezing (mild) - CARDIOVASCULAR Cardiovascular: normal peripheral pulses, regular rate, rhythm, no edema - GASTROINTESTINAL (ABDOMEN) Abdominal Exam: normal bowel sounds, non tender, soft - MUSCULOSKELETAL Extremity: normal range of motion, non-tender, no calf tenderness. negative: swelling, tenderness - SKIN Integumentary: normal color, normal turgor, warm/dry - NEUROLOGIC Neurologic: procurement engineer II-XII nml as tested, grossly normal, no motor/sensory deficits - PSYCHIATRIC Psych/Mental Status: normal mood/affect, normal thought content, normal thought process, oriented x 3 - HEART Score HEART Score: History: Moderately Suspicious HEART Score: ECG: Non-Specific Repolarization Disturbance/LBBB/PM HEART Score: Age: 45-65 Years HEART Score: Risk Factors for Atherosclerotic Disease: > or = 3 Risk Factors or History of Atherosclerotic Disease HEART Score: Troponin: < or = Normal Limit Total HEART Score:: 5 Progress - PLAN OF CARE/RESULTS Progress/Plan/Lab Results: Vital Signs - 8 hr 03/07/19 07:48 03/07/19 08:48 Temperature 97.9 F Pulse Rate 88 97 H Respiratory Rate 38 H 16 Blood Pressure 162/82 O2 Sat by Pulse Oximetry 97 100 Laboratory Results - last 24 hr 03/07/19 03/07/19 03/07/19 07:54 08:05 08:05 WBC 9.46 RBC 3.95 L Hgb 12.3 Hct 39.4 MCV 99.7 H MCH 31.1 H MCHC 31.2 L RDW Std Deviation 16.2 H Plt Count 231 MPV 11.3 H Immature Gran % (Auto) 0.3 Neut % (Auto) 58.5 Lymph % (Auto) 29.9 [place] % (Auto) 8.1 Eos % (Auto) 3.1 Baso % (Auto) 0.1 Immature Gran # (Auto) 0.03 Neut # (Auto) 5.53 Lymph # (Auto) 2.83 [place] # (Auto) 0.77 H Eos # (Auto) 0.29 Baso # (Auto) 0.01 PT INR PTT (Actin FS) D-Dimer, Quantitative Specimen Type ARTERIAL Sample Site R RADIAL pH 7.39 pCO2 39 pO2 78 HCO3 23.9 Base Excess -1.2 Oxyhemoglobin 92.1 L ABG O2 Sat (Calculated) 16.1 ABG O2 Saturation 98.0 ABG Carboxyhemoglobin 5.10 H* ABG Methemoglobin 0.9 Alex Test YES A-a O2 Difference 23.0 Total Hemoglobin 12.4 Lactate 2.00 Blood Gas Modality ROOM AIR FiO2 % 21.0 Sodium 143 Potassium 4.1 Chloride 108 H Carbon Dioxide 23 L Anion Gap 12 BUN 11 Creatinine 0.9 Estimated GFR/1.73 m2 > 60 BUN/Creatinine Ratio 12 Glucose 163 H Calculated Osmolality 288 Calcium 8.9 Total Bilirubin < 0.15 L AST 13 ALT 14 Alkaline Phosphatase 86 Creatine Kinase 68 Troponin T Not-E-Lzqdnvwxnps Pept Total Protein 6.2 L Albumin 3.5 Globulin 3.0 Albumin/Globulin Ratio 1.0 Plasma Lactate Influenza A (Rapid) Influenza B (Rapid) 03/07/19 03/07/19 03/07/19 08:05 08:05 08:05 WBC RBC Hgb Hct MCV MCH MCHC RDW Std Deviation Plt Count MPV Immature Gran % (Auto) Neut % (Auto) Lymph % (Auto) [place] % (Auto) Eos % (Auto) Baso % (Auto) Immature Gran # (Auto) Neut # (Auto) Lymph # (Auto) [place] # (Auto) Eos # (Auto) Baso # (Auto) PT 12.9 INR 0.93 PTT (Actin FS) 25.2 D-Dimer, Quantitative Specimen Type Sample Site pH pCO2 pO2 HCO3 Base Excess Oxyhemoglobin ABG O2 Sat (Calculated) ABG O2 Saturation ABG Carboxyhemoglobin ABG Methemoglobin Alex Test A-a O2 Difference Total Hemoglobin Lactate Blood Gas Modality FiO2 % Sodium Potassium Chloride Carbon Dioxide Anion Gap BUN Creatinine Estimated GFR/1.73 m2 BUN/Creatinine Ratio Glucose Calculated Osmolality Calcium Total Bilirubin AST ALT Alkaline Phosphatase Creatine Kinase Troponin T < 0.010 Hiz-M-Iazcvuljbmx Pept 500 H Total Protein Albumin Globulin Albumin/Globulin Ratio Plasma Lactate Influenza A (Rapid) Influenza B (Rapid) 03/07/19 03/07/19 03/07/19 08:05 08:05 08:28 WBC RBC Hgb Hct MCV MCH MCHC RDW Std Deviation Plt Count MPV Immature Gran % (Auto) Neut % (Auto) Lymph % (Auto) [place] % (Auto) Eos % (Auto) Baso % (Auto) Immature Gran # (Auto) Neut # (Auto) Lymph # (Auto) [place] # (Auto) Eos # (Auto) Baso # (Auto) PT INR PTT (Actin FS) D-Dimer, Quantitative 0.59 H Specimen Type Sample Site pH pCO2 pO2 HCO3 Base Excess Oxyhemoglobin ABG O2 Sat (Calculated) ABG O2 Saturation ABG Carboxyhemoglobin ABG Methemoglobin Alex Test A-a O2 Difference Total Hemoglobin Lactate Blood Gas Modality FiO2 % Sodium Potassium Chloride Carbon Dioxide Anion Gap BUN Creatinine Estimated GFR/1.73 m2 BUN/Creatinine Ratio Glucose Calculated Osmolality Calcium Total Bilirubin AST ALT Alkaline Phosphatase Creatine Kinase Troponin T Kor-I-Yeigquhxyrw Pept Total Protein Albumin Globulin Albumin/Globulin Ratio Plasma Lactate 2.1 Influenza A (Rapid) NEGATIVE Influenza B (Rapid) NEGATIVE Orders Category Date Time Status Cardiac Monitoring DIRECTED Care 03/07/19 07:57 Active Oxygen Therapy- ED Nursing DIRECTED Care 03/07/19 07:57 Active Saline Loc NOW Care 03/07/19 07:57 Active CHEST-PORTABLE [RAD] Stat Exams 03/07/19 08:[address] ANGIOGRM PULMONARY ARTERIES [CT] Stat Exams 03/07/19 08:51 Completed ABG [RESP] Routine Lab 03/07/19 07:54 Completed BLOOD CULTURE [BLDCUL] Stat Lab 03/07/19 08:09 Ordered CBC WITH ELECTRONIC DIFF [HEME] Stat Lab 03/07/19 08:05 Completed CK PROFILE [SP CHEM] Stat Lab 03/07/19 08:05 Completed COMPREHENSIVE METABOLIC PANEL [CHEM] Stat Lab 03/07/19 08:05 Completed D-DIMER [COAG] Stat Lab 03/07/19 08:[address] Stat Lab 03/07/19 08:28 Completed LACTATE, PLASMA [CHEM] Stat Lab 03/07/19 08:05 Completed PRO B-NATRIURETIC PEPTIDE Stat Lab 03/07/19 08:05 Completed PROTIME WITH INR [COAG] Stat Lab 03/07/19 08:05 Completed PTT [COAG] Stat Lab 03/07/19 08:05 Completed TROPONIN T Stat Lab 03/07/19 08:05 Completed Albuterol 2.5MG/Ipratrop 0.5MG [Duoneb (A & A)] Med 03/07/19 08:10 Discontinued 3 ml INH NOW ONE Hydromorphone [Dilaudid] Med 03/07/19 08:09 Discontinued 1 mg IV NOW ONE Metoclopramide [Reglan] Med 03/07/19 08:10 Discontinued 10 mg IV NOW ONE Aerosol Treatments Routine Oth 03/07/19 08:11 Active Aerosol Treatments Stat Oth 03/07/19 08:11 Active CP/SOB/Palp >45 yrs of Age Stat Oth 03/07/19 07:57 Ordered EKG [EKG] Stat Ther 03/07/19 07:57 Draft Result Diagrams: 03/07/19 08:05 03/07/19 08:05 - REASSESSMENT Reassessment #1 Time Reassessed: 08:58 Status: improving (elev d-d9m, nl trop, nl Cr: CTA chest) Reassessment #2 Time Reassessed: 10:28 Status: improving (symptomatic thyromegally, better now.) - EKG 1 Time of EKG reading by physician:: 07:54 EKG Read and Signed by:: Óscar Serna EKG Interpretation (*Must complete 3 of following elements*): Abnormal Rate: 92 Rhythm: sinus [place]: left QRS: RBB, poor R wave progression RI Interval: normal ST Wave: non-specific ST changes - CT/MRI 1 CT Study: Thorax Impression: Abnormal (thyromegally with pressure on trachea), See EMR Report - CONSULTS/PCP/HOSPITALIST Notification #1 *Consult/PCP/Hospitalist*: dr ELIAS Time Discussed: 10:26 Consult Disposition: Admit (admit here or transfer as necessary) Departure - Departure Date of Disposition Decision: 03/07/19 Time of Disposition Decision: 10:26 DIAGNOSIS: Chest pain, HTN (hypertension), CAD (coronary artery disease), Atypical chest pain, Shortness of breath, Thyromegaly Disposition: ADMITTED INPATIENT 09 Certified Medical Emergency: Emergent Condition: Fair Referrals and Follow-Ups: Abel Baez MD [Primary Care Provider] - - Critical Care Note This patient required my direct & personal management of CC.: No Attestation - Physician/ [place] Attestation The physician spent face to face time with patient:: Yes Advanced Practice Provider documentation review:: Supervising physician onsite and consulted in the evaluation and care of this patient. The physician did have a face to face encounter with the patient.
[2019-03-07 09:11] LABS: INFLUENZA A NEGATIVE (NEGATIVE); INFLUENZA B NEGATIVE (NEGATIVE)
--- NOTE | 2019-03-07 10:02 | Diag Imaging Result Doc PS360 ---
CHEST-PORTABLE - 03/07/2019 INDICATION: Pain Med COMPARISON: 02/19/2019 FINDINGS: Stable cardiomegaly and pulmonary vascular congestion. There is some mild linear atelectasis in the left upper lobe. Otherwise no dense infiltrates or edema. Stable left shoulder replacement. IMPRESSION: Increasing linear atelectasis, otherwise no change from prior. Electronically signed by Salvador Navas 03/07/2019 9:59 AM
--- NOTE | 2019-03-07 10:08 | Diag Imaging Result Doc PS360 ---
CT ANGIOGRM PULMONARY ARTERIES - 03/07/2019 INDICATION: CP,SOB,ELEV D-DIM TECHNIQUE: Axial CT images were obtained after administering intravenous contrast. Coronal MIP images were generated. COMPARISON: 06/07/2016 FINDINGS: There is a huge thyroid goiter compressing the trachea at the thoracic inlet. This is similar to the prior exam. The right lobe measures about 5.9 x 3.5 cm. The left lobe measures about 7.6 x 4.1 cm. The trachea is compressed down to 12 x 6 mm. Particularly the left lobe extends far down below the upper border of the sternum. There is no pulmonary embolism. There is mild cardiomegaly. There is extensive scattered linear atelectasis bilaterally. No infiltrates. Small granulomas in the right lung. Upper abdominal images are unremarkable. There are moderate degenerative changes of the spine. No acute or suspicious bony lesion. IMPRESSION: 1. Very enlarged thyroid goiter with subcutaneous sternal extension. This causes severe compression of the thoracic trachea in the thoracic inlet. 2. Cardiomegaly. 3. Extensive linear atelectasis bilaterally. This exam was performed using automated exposure control, adjustment of mA or kV according to patient size, and/or use of iterative reconstruction technique Electronically signed by Salvador Navas 03/07/2019 10:05 AM
--- NOTE | 2019-03-07 10:13 | EKG Report ---
Test Performed on : 03/07/2019 07:53:14 AM Test Reason : cp/sob Blood Pressure : / mmHG Vent. Rate : 092 BPM Atrial Rate : 092 BPM P-R Int : 134 ms QRS Dur : 132 ms QT Int : 334 ms P-R-T Axes : 045 -85 108 degrees QTc Int : 413 ms Sinus rhythm. with premature ventricular complexes. or fusion complexes Possible Left atrial enlargement Left axis deviation Right bundle branch block Septal infarct (cited on or before 26-NOV-2009) Abnormal ECG When compared with ECG of 19-FEB-2019 22:46, (Unconfirmed) Significant changes have occurred Unconfirmed Result
[2019-03-07] MEDS ORDERED: NS 1,000 ML IV ONE (11:26)
--- NOTE | 2019-03-07 11:49 | EKG Report ---
Test Performed on : 03/07/2019 11:07:10 AM Test Reason : 2 hour repeat ekg Blood Pressure : / mmHG Vent. Rate : 088 BPM Atrial Rate : 088 BPM P-R Int : 136 ms QRS Dur : 130 ms QT Int : 398 ms P-R-T Axes : 053 -82 130 degrees QTc Int : 481 ms Normal sinus rhythm. Possible Left atrial enlargement Left axis deviation Right bundle branch block Septal infarct (cited on or before 26-NOV-2009) T wave abnormality, consider lateral ischemia Abnormal ECG When compared with ECG of 07-MAR-2019 07:53, (Unconfirmed) fusion complexes are no longer present premature ventricular complexes. are no longer present Nonspecific T wave abnormality no longer evident in Inferior leads QT has lengthened Unconfirmed Result
--- NOTE | 2019-03-07 12:01 | ED EKG INTERP ---
This chart was entered by Triny Servin Scribe, acting as scribe for Óscar Serna MD. EKG Interpretation - EKG Time of EKG reading by physician:: 11:07 EKG Read and Signed by:: Óscar Serna EKG Interpretation (*Must complete 3 of following elements*): Abnormal Rate: 88 Rhythm: nsr [place]: left (deviation) QRS: RBB, other (possible left atrial enlargement/T wave abnormality, consider lateral ischemia) ME Interval: normal ST Wave: normal Comments: septal infarct, age undetermined Attestation - Physician/ [place] Attestation Patient care was provided by Advanced Practice Provider:: No The physician spent face to face time with patient:: Yes Advanced Practice Provider documentation review:: Supervising physician onsite and consulted in the evaluation and care of this patient. The physician did have a face to face encounter with the patient. This chart was documented by the indicated scribe, (Triny Servin Scribe) and accurately reflects the services I performed and decisions made by me, Óscar Serna MD, as attested by the provider's signature.
[2019-03-07] MEDS ORDERED: ZOFRAN IV PRN (12:44)
[2019-03-07] MEDS ORDERED: NITROGLYCERIN SL PRN (12:44)
[2019-03-07] MEDS ORDERED: LOVENOX SUBQ SCH (13:00)
--- NOTE | 2019-03-07 14:44 | HISTORY AND PHYSICAL ---
MAC ARTIST: Dr. Baez. CHIEF COMPLAINT: Headache, dizziness, shortness of breath and chest pain. HISTORY OF PRESENT ILLNESS: The patient states that she has been having intermittent chest pain and shortness of breath for a week now. The patient states that at 3 o'clock this morning she woke up and she was having some chest pain and some shortness of breath. She decided to take a 325 mg Tylenol at that time. She said about 15 minutes later, she woke up and she vomited. About an hour later, she continued to have intermittent chest pain and she took another 325 mg Tylenol. The pain persisted. At about 5 o'clock this morning, she decided to take her nitroglycerin sublingual tablets. She took one tablet 15 minutes apart x3, a total of 3 doses. She continued to have chest pain and shortness of breath, so she decided to come to the ER at that time. She states that the pain is sharp, it does come and go, but radiates into the back to the left chest wall and it also radiates down the left arm. Her chest is tender to the touch. Upon assessment, the patient states it is hard for her to take a deep breath and she is short of breath. The patient does have a past medical history of COPD and CHF, hyperlipidemia, hypertension and NE. She has had 2 stents placed before. LABORATORY FINDINGS: Show a D-dimer of 0.59, oxyhemoglobin of 92.1, carboxyhemoglobin of 5.1 and that was on room air, chloride of 108, carbon dioxide 23, glucose of 163, proBNP of 500. X-RAYS: Chest x-ray showed increasing linear atelectasis. The CT angiogram showed a very enlarged thyroid goiter that causes severe compression on the thoracic trachea, cardiomegaly and linear atelectasis bilaterally. The patient is denying any nausea and vomiting at this time. She denies any palpitations. States she is still having some chest pain. She denies any fever or chills, any dysuria, hematuria, any constipation or diarrhea. PAST MEDICAL HISTORY: NE in 2010, COPD, CHF, hyperlipidemia, hypertension, obstructive sleep apnea, coronary artery disease, morbid obesity, GERD, chronic headaches, neck pain. PAST SURGICAL HISTORY: Cholecystectomy, section, hysterectomy, coronary stenting x2, shoulder surgery. FAMILY HISTORY: Mother has hypothyroidism and hypertension. Father of heart problems and alcohol abuse. She also has a significant family history for type 2 diabetes and coronary artery disease. REVIEW OF SYSTEMS: A 14 point review of systems has been obtained and are negative, except what is stated above in the HPI. ALLERGIES: Anaprox, Midrin, Toradol, Naprosyn, tramadol, acetaminophen, ibuprofen, morphine, Zofran. SOCIAL HISTORY: Patient states she lives in [place] with her son. She denies any alcohol, smoking or drug abuse. States she used to be a smoker. MEDICATIONS: Home medication reconciliation has not been performed. According to the old medical record, patient takes DuoNebs 3 mL inhaled q. 2 hours p.r.n., Lipitor 40 mg p.o. at bedtime, Coreg 25 mg p.o. b.i.d., Lasix 40 mg p.o. b.i.d., hydralazine 25 mg p.o. t.i.d., isosorbide mononitrate 60 mg p.o. daily, Tizanidine 4 mg p.o. b.i.d. PHYSICAL EXAM: VITAL SIGNS: Temperature 97.9 degrees, heart rate 88, respiratory rate 16 blood pressure 162/82, O2 saturation 97% on room air. GENERAL: This is a 58-year-old, morbidly obese female. She is sitting up in the ER stretcher. She is well nourished and well developed. She is in no acute distress at present time. HEENT: Atraumatic, normocephalic. Pupils equal, round, reactive to light. Mucous membranes are moist. NECK: Trachea appears to be midline. It is hard to see some of the neck structure because of anatomy. CARDIOVASCULAR: Regular rate and rhythm. No murmurs, gallops, or rubs appreciated. RESPIRATORY: Lung sounds are coarse throughout. The patient has a lot of wheezing and rhonchi noted. There is equal chest excursion. Respirations appear to be nonlabored. There appears to be no accessory muscle usage. GI: Abdomen is soft and nontender and is nondistended. Bowel sounds are present x4. NEUROLOGIC: Cranial nerves 2-12 are intact. The patient is awake, alert and oriented. She is able to follow all commands appropriately. MUSCULOSKELETAL: There is full distal strength noted. No abnormalities. No deformities. EXTREMITIES: No clubbing, no cyanosis, no edema. DP and PT pulses are present and palpable. SKIN: Warm, dry, and intact. There are no rashes or bruises noted. ASSESSMENT AND PLAN: 1. Chest pain. We are going to admit this patient to the medical floor. We are going to place her on campus monitor. We are going to trend her CK and troponins. Do echocardiogram on this patient. She does have a past medical history of ischemic cardiomyopathy. We are going to get Cardiology to see her. We are going to repeat electrocardiograms and labs in the morning. 2. Dyspnea. Patient has a large goiter noted to the thyroid that is compressing the trachea. We are going to have Cardiology rule out any cardiac etiology for her chest pain and dyspnea and will then consult with Cardiothoracic surgery about further evaluation of this large thyroid goiter that is compressing her trachea. 3. Congestive heart failure. The patient does take Lasix at home. Her home medication list has not been updated. We are going to restart that medication once it has been updated in this system. 4. Chronic obstructive pulmonary disease. The patient does have a past medical history of smoking. She states she does not smoke any more. However, her carboxyhemoglobin is elevated. We are going to give her breathing treatments as needed and place her on oxygen via nasal cannula at 2 liters as needed, keep saturations greater than 90%. 5. Hypertension. I am going to restart her home medications once her medication reconciliation has been performed. 6. Obesity. 7. Gastrointestinal prophylaxis. I placed her on omeprazole 20 mg oral daily. 8. Deep venous thrombosis prophylaxis. I placed her on Lovenox 40 mg subcutaneous every 24 hours. We are admitting this patient to the medical floor. We are going to have Cardiology see the patient. We are going to trend her CK and troponins. We are going to do an echocardiogram on her. We have ordered her serial CK and troponin levels and EKG levels. Repeat labs in the morning. We will reorder her home medications once they are reconciled in the computer. We will consult with Cardiothoracic surgery once Cardiology has cleared the patient. All other further treatment pending hospital course and lab data. Dictated by JOYCE Canela for Dejuan Banks MD cc: MD Abel Smyth MD MTDD
[2019-03-07] MEDS ORDERED: DUONEB (A & A) INH SCH (15:00)
--- NOTE | 2019-03-07 17:19 | CARDIOLOGY CONSULTATION ---
DATE: 03/07/2019 CHIEF COMPLAINT ON PRESENTATION: Shortness of breath and dyspnea. HISTORY OF PRESENT ILLNESS: Ms. Olsno is a pleasant 58-year-old black female with a history of an ischemic cardiomyopathy. She presented for 3 to 4 days of chest pain and worsening shortness of breath. Her shortness of breath. occurs with essentially any exertion above sitting in a chair. She denies any overt orthopnea. She has had no recent coughs. No issues with lower extremity edema. She reports compliance with her medications. No recent fevers. Her chest discomfort is described as a stabbing-like sensation lasts for 2 hours at that time, it will occasionally have a pleuritic type component will get better with lying down and relaxation. There was no exertional component to it. PAST MEDICAL HISTORY: 1. Significant for coronary disease. Last cardiac catheterization in January 2018 showed a normal left main. Left anterior descending had mild luminal irregularities, with a patent stent. The circumflex had mild luminal irregularities. Right coronary had mild luminal irregularities with a widely patent stent in the mid vessel. Her last ejection fraction by my records was in 2016 and noted to be 30%. She last saw Dr. Yañez in June 2018. 2. Hypertension. 3. Hyperlipidemia. 4. History of renal insufficiency. 5. History of peripheral arterial disease with iliac disease noted on previous cardiac catheterizations. 6. Morbid obesity. 7. Diabetes. 8. COPD. 9. Reflux disease. SOCIAL HISTORY: She does not abuse alcohol or tobacco currently, previous smoker. FAMILY HISTORY: Mother has hypothyroidism and hypertension. Father with a history of heart problems and alcohol abuse. REVIEW OF SYSTEMS: A 10 system review of systems negative except for those things mentioned in HPI. PHYSICAL EXAMINATION: Vital Signs: Patient is afebrile. Heart rate is 98., Her blood pressure is 136/72. He weighs 300 pounds. She is 5 feet 2 inches tall. General: Morbidly obese, black female. She is mildly short of breath. HEENT: Oropharynx is moist. Normal dentition. Eye examination is pink conjunctivae. White sclerae. Neck: Examination shows marked thyromegaly that is not tender to palpation. Cardiovascular: She sounds to be in a regular rate and rhythm. I do not hear any audible murmur. She has no lower extremity edema. She has no carotid bruits. Respiratory: Her chest exam sounds relatively clear. Very distant breath sounds. She does have some expiatory wheezes noted. No obvious stridor during the examination. Abdomen: Soft, nontender. No obvious organomegaly but exam is significantly limited due to weight. Skin: Warm and dry throughout without any rashes. Neurological: She is moving all extremities well. She has no lateralizing deficits. PERTINENT DATA: Her EKG shows sinus rhythm, 92 beats per minute. She has a nonspecific intraventricular conduction delay which appears consistent with what she had previously in 2018. PVC is identified. EKG was reviewed by me. Her pulmonary arteriogram demonstrates a very large thyroid with subcutaneous and sternal extension compressing the trachea down to around 60 mm. Laboratory data demonstrates a white count of 9.4, hematocrit is 39, platelet count is 231,000. Sodium is 143, potassium 4.1, BUN is 11, creatinine 0.9. Cardiac enzymes are negative. ProBNP is 50.0 her thyroid studies are unremarkable, with a TSH of 0.44, free T4 of 0.98. ASSESSMENT: Ms. Jovan Smith is a 58-year-old black female with a history of ischemic cardiomyopathy. PLAN: Her chest discomfort sounds atypical for coronary ischemia. She had a catheterization in January 2018 that showed minimal disease with patent stents. Noninvasive testing in this patient would be extremely challenging considering her body habitus. I would not recommend doing that at this time considering her normal enzymes, normal EKG and somewhat atypical symptoms. I would recommend some sort of surgical evaluation in this patient, whether it be ENT, cardiothoracic or general surgery, regarding her compressed trachea. That certainly could be causing symptoms that she is experiencing presently. She would be an extremely difficult intubation given her body habitus and airway issues. If we can be of further assistance, please do not hesitate to contact us. cc: Kirby Frey MD MTDD
[2019-03-07 20:17] VITALS: BP 147/93
[2019-03-07] MEDS ORDERED: ELAVIL PO SCH (21:00)
[2019-03-07] MEDS ORDERED: ZANAFLEX PO SCH (21:00)
[2019-03-07] MEDS ORDERED: XANAX PO SCH (21:00)
[2019-03-07] MEDS ORDERED: LIPITOR PO SCH (21:00)
[2019-03-07] MEDS ORDERED: APRESOLINE PO SCH (21:00)
--- NOTE | 2019-03-07 21:45 | DISCHARGE SUMMARY ---
ADMISSION DATE: 03/07/2019 DISCHARGE DATE: 03/07/2019 DISCHARGE/TRANSFER SUMMARY: DISCHARGE DIAGNOSIS: 1. Shortness of breath and chest discomfort, secondary to enlarged thyroid goiter with subcutaneous sternal extension, causing severe thoracic tracheal compression. 2. Ischemic cardiomyopathy, with left ventricular ejection fraction estimated at 30%. 3. Chronic obstructive pulmonary disease. 4. Hypertension. 5. Obstructive sleep apnea. 6. Dyslipidemia. 7. Morbid obesity. HOSPITAL COURSE: The patient was admitted a few hours ago with the aforementioned issues and was given supportive care. We reached out to Cardiothoracic Surgery at [facility] and discussed with Dr. Ya, who accepted transferring the patient to [facility] for further care. Further care will be provided at [facility]. CONDITION: Stable. DISPOSITION: [facility]. cc: Dejuan Banks MD
[2019-03-07] MEDS ORDERED: COREG PO SCH (22:00)
[2019-03-08] MEDS ORDERED: PRILOSEC PO SCH (07:00)
[2019-03-08] MEDS ORDERED: ASPIRIN PO SCH (09:00)
[2019-03-08] MEDS ORDERED: IMDUR PO SCH (09:00)
--- NOTE | 2019-03-08 12:59 | ECHO REPORT ---
ORDER DATE: 03/07/2019 SUMMARY: 1. Technically difficult study due to limited acoustic window quality. Intravenous echo contrast agent Optison was utilized to enhance endocardial definition. 2. Aortic valve was without evidence of structural abnormality and opens adequately on 2- dimensional images. Peak gradient across aortic valve is less than 10 mmHg. Mitral and tricuspid valves are without evidence of structural abnormality while pulmonic valve was not well demonstrated. The aortic root is normal size. 3. Borderline left ventricular enlargement with normal wall thickness suggested on 2-dimensional images. Estimated left ejection fraction approximately 25%. Regional wall motion analysis is challenging given the limitations of the study. There appears to be akinesis of the mid to apical anteroseptal region and apex. The apical anterior wall appears severely hypokinetic. Left atrium is borderline enlarged. Right atrium and right ventricle grossly normal size. 4. No pericardial effusion. 5. Inferior vena cava not well demonstrated. cc: Nilson Rooney MD
--- NOTE | 2019-03-10 09:30 | HISTORY AND PHYSICAL ---
ADDENDUM: I saw the patient face to face and fully agree with the assessment plan of Nurse Practitioner, Catrachita Mckeon. This is a 58-year-old lady who came into the emergency room with chest pain and shortness of breath. Cardiology has evaluated her and she actually had a cardiac catheterization done in 01/2018 showing normal left main and mild luminal irregularities in left anterior descending coronary artery. The circumflex had also mild luminal irregularities, and RCA had mild luminal irregularities with a widely-patent stent in the mid vessel. Ejection fraction was recorded at 30% from medical records from 2017. She is comfortable at rest, but gets short of breath with exertion; and she did have a pulmonary angiogram to rule out pulmonary thromboembolism which was actually ruled out, but she was found to have a very enlarged thyroid goiter with subcutaneous sternal extension causing severe compression to the thoracic trachea in the thoracic inlet. Because of the enlarged goiter causing tracheal compression, I have reached out to [facility] and discussed with Dr. Ya from Cardiothoracic Surgery who has accepted transfer of this patient to [facility]. Further care will be provided at [facility]. cc: Dejuan Banks MD
== END 2019-03-07 20:55 | disposition short-term general hospital (02) ==
LOC: P.MEDSURG 07:44 → P.ED 07:44
PROVIDERS: ATTEND Internal Medicine

== ENCOUNTER 2019-04-15 10:33 | Observation (INO) ==
[2019-04-15] MEDS ORDERED: DUONEB (A & A) INH ONE ×2 (10:54→13:06)
[2019-04-15] MEDS ORDERED: SOLU-MEDROL IV ONE (10:55)
--- NOTE | 2019-04-15 11:10 | PROVIDER DOCUMENTATION ---
HPI-Respiratory General - General Chief Complaint: Shortness of Breath Stated Complaint: SOB/VOMITING Time Seen by Provider: 04/15/19 10:49 Source: patient Allergies/Adverse Reactions: Patient Allergies Allergy/AdvReac Type Severity Reaction Status Date / Time naproxen sodium * Allergy Intermediate RASH Verified 03/07/19 07:56 [From Anaprox] dichloralphenazone AdvReac Mild RASH Verified 03/07/19 07:56 [From MIDRIN] isometheptene mucate * AdvReac Mild RASH Verified 03/07/19 07:56 [From MIDRIN] ketorolac tromethamine * AdvReac Mild RASH Verified 03/07/19 07:56 [From Toradol] naproxen [From Naprosyn] AdvReac Mild RASH Verified 03/07/19 07:56 tramadol HCl * [From Ultram] AdvReac Mild RASH Verified 03/07/19 07:56 acetaminophen AdvReac RASH Verified 03/07/19 07:56 ibuprofen AdvReac RASH Verified 03/07/19 07:56 morphine AdvReac HEADACHE Verified 03/07/19 07:56 ondansetron HCl * AdvReac NAUSEA/VOMI Verified 03/07/19 07:56 [From Zofran (as TING hydrochloride)] Home Medications: Home Medication List Medication Instructions Recorded Confirmed Last Taken Type Hydralazine HCl 25 mg PO TID@0900,1500,2100 06/08/14 03/07/19 04/21/18 13:30 History Atorvastatin Calcium [Lipitor] 40 mg PO QHS 03/16/17 03/07/19 04/20/18 21:00 History Isosorbide Mononitrate [Isosorbide 60 mg PO DAILY 07/07/17 03/07/19 04/21/18 09:00 History Mononitrate ER] Tizanidine HCl 4 mg PO BID 07/17/18 03/07/19 Unknown History Alprazolam [Xanax] 2 mg PO QHS 11/08/18 03/07/19 Unknown History Amitriptyline [Elavil] 30 - 40 mg PO HS 11/08/18 03/07/19 Unknown History Codeine/Butalbital/ASA/Caffein 30 mg PO Q8H PRN PRN 11/08/18 03/07/19 Unknown History [Fiorinal-Cod [id number] [facility]] Carvedilol [Coreg] 25 mg PO TID 03/07/19 03/07/19 Unknown History - History of Present Illness-Resp Nature of Presenting Problem: Patient is a 59yo F who presents with complaints of SOB, productive cough w/ green sputum, wheezing, and bilateral lower leg swelling that began at 0400 this morning. Patient also reports nausea/vomiting and bilateral chest pain x3 days. States hx of COPD and reports she used 2 nebulizer treatments this morning [employer] without improvement in symptoms. Denies home oxygen usage, fever/chills, abdominal pain, diarrhea, syncope, or dizziness. Upon examination, patient is in moderate distress and having to pause while speaking. No retractions/accessory muscle usage noted. O2 sat on RA 88%. Patient placed on 2L NC. Quality of Pain: reports: pressure Severity in ED: reports: moderate Onset/Duration: reports: 3 days ago (CP/n/v), this morning (0400; resp symptoms) Timing: reports: still present Exposure: reports: unknown cause Cough Quality/Degree: reports: mild, productive cough, sputum (green) Episode Frequency: occasional episodes Current Respiratory Medication Therapy: Initiated see nurses note Modifying Factors: improves with: nothing Associated Symptoms: reports: chest pain/soreness (bilat.), cough, shortness of breath, wheezing. denies: dizziness, fever/chills, nasal congestion, nasal drainage, sore throat Similar Symptoms Previously?: No Recently seen or treated by another doctor?: No Review of Systems - Adult - REVIEW OF SYSTEMS - ADULT Constitutional: reports: no symptoms reported. denies: chills, fever Eyes: reports: no symptoms reported Ears, Nose, Mouth & Throat: reports: no symptoms reported. denies: ear pain, throat pain Cardiovascular: reports: see HPI, chest pain (bilat.), edema. denies: palp itations, syncope Respiratory: reports: see HPI, cough (productive with green sputum), shortness of breath, wheezing Gastrointestinal: reports: see HPI, nausea, vomiting. denies: abdominal pain, diarrhea Genitourinary: reports: no symptoms reported Musculoskeletal: reports: see HPI, back pain (mid back) Integumentary: reports: no symptoms reported Neurological: reports: no symptoms reported. denies: dizziness/vertigo, headache/migraines, syncope Psychiatric: reports: no symptoms reported Endocrine: reports: no symptoms reported Past History - Adult - PAST MEDICAL HISTORY-ADULT Review of Records: reports: Nursing Assessment Review, Medications Reviewed Major Childhood Illnesses: reports: denies history Cardiovascular: reports: CAD, CHF, HTN, hyperlipidemia, MT (x2) Respiratory: reports: asthma, COPD Gastrointestinal: reports: GERD Obstetrical/Gynecological: reports: denies history Genitourinary: reports: kidney stones Musculoskeletal: reports: chronic pain (back) Neurological: reports: CVA, headaches/migraines (tension headaches) Psychiatric: reports: anxiety Endocrine/Immune: reports: Diabetes Other Conditions: reports: denies history Additional History: Freq ER visits - PRIOR SURGERIES/PROCEDURES Surgical/Procedure History: reports: cholecystectomy, cardiac stent (X2 ), hysterectomy, - PRIOR HOSPITALIZATIONS Prior Hospitalizations: reports: for similar symptoms, for other non-related - IMMUNIZATION STATUS Childhood Immunizations: See Nurse Assessment Flu Vaccine: See Nurse Assessment - FAMILY HISTORY Family History: reviewed, not pertinent - SOCIAL HISTORY Smoking: quit greater than 1 year Physical Exam-General - PHYSICAL EXAM-ADULT Initial Vital Signs Reviewed: Yes - CONSTITUTIONAL General Appearance: alert, moderate distress, obese. negative: lethargic, slow to respond, obtunded - EYES Eyes: PERRL/EOMI, pink conjunctivae. negative: EOM palsy, scleral icterus - HEAD, EARS, NOSE, MOUTH & THROAT HENMT: normocephalic/atraumatic, moist mucous membranes. negative: angioedema - NECK Neck: non-tender, full range of motion, supple, normal inspection - RESPIRATORY Respiratory: chest non-tender, no pleuratic chest pain, no accessory muscle use, wheezing (all lung montes), other (increased work of breathing). negative: decreased breath sounds, crackles, rales, rhonchi, stridor, retractions, splinting - CARDIOVASCULAR Cardiovascular: regular rate, rhythm - MUSCULOSKELETAL Back Exam: normal inspection, no CVA tenderness, no vertebral tenderness Extremity: normal range of motion, non-tender, normal gait, normal capillary refill, pelvis stable, pedal edema (bilat +1 non-pitting). negative: calf tenderness, tenderness Peripheral Pulses: dorsalis-pedis (R): 2+, dorsalis-pedis (L): 2+ - SKIN Integumentary: normal color, warm/dry. negative: cyanosis, jaundice, pallor - NEUROLOGIC Neurologic: grossly normal. negative: aphasia, EOM palsy - PSYCHIATRIC Psych/Mental Status: normal mood/affect, normal thought content, normal thought process, oriented x 3 - HEART Score HEART Score: History: Slightly Suspicious HEART Score: ECG: Normal HEART Score: Age: 45-65 Years HEART Score: Risk Factors for Atherosclerotic Disease: > or = 3 Risk Factors or History of Atherosclerotic Disease HEART Score: Troponin: < or = Normal Limit Total HEART Score:: 3 Progress - PLAN OF CARE/RESULTS Progress/Plan/Lab Results: Vital Signs - 8 hr 04/15/19 10:39 04/15/19 11:10 04/15/19 11:23 Temperature 99.4 F Pulse Rate 97 H 101 H 97 H Respiratory Rate 18 24 19 Blood Pressure 158/103 207/130 O2 Sat by Pulse Oximetry 94 L 100 98 04/15/19 11:39 04/15/19 11:54 Temperature Pulse Rate 98 H 103 H Respiratory Rate 30 H 26 H Blood Pressure 191/126 143/108 O2 Sat by Pulse Oximetry 97 98 Laboratory Results - last 24 hr 04/15/19 04/15/19 04/15/19 11:05 11:05 11:05 WBC 12.19 H RBC 4.26 Hgb 13.0 Hct 41.9 MCV 98.4 MCH 30.5 MCHC 31.0 L RDW Std Deviation 15.4 H Plt Count 276 MPV 11.0 H Immature Gran % (Auto) 0.2 Neut % (Auto) 71.5 Lymph % (Auto) 20.4 L [place] % (Auto) 5.7 Eos % (Auto) 2.0 Baso % (Auto) 0.2 Immature Gran # (Auto) 0.02 Neut # (Auto) 8.73 H Lymph # (Auto) 2.49 [place] # (Auto) 0.69 H Eos # (Auto) 0.24 Baso # (Auto) 0.02 PT INR PTT (Actin FS) Sodium 146 H Potassium 4.0 Chloride 105 Carbon Dioxide 31 Anion Gap 10 BUN 6 L Creatinine 0.8 Estimated GFR/1.73 m2 > 60 BUN/Creatinine Ratio 8 Glucose 122 H Calculated Osmolality 289 Calcium 9.7 Total Bilirubin 0.30 AST 15 ALT 19 Alkaline Phosphatase 111 H Creatine Kinase 74 Troponin T Ytd-R-Gldobgkgley Pept 1621 H Total Protein 7.5 Albumin 3.9 Globulin 4.0 Albumin/Globulin Ratio 1.0 04/15/19 04/15/19 11:05 11:05 WBC RBC Hgb Hct MCV MCH MCHC RDW Std Deviation Plt Count MPV Immature Gran % (Auto) Neut % (Auto) Lymph % (Auto) [place] % (Auto) Eos % (Auto) Baso % (Auto) Immature Gran # (Auto) Neut # (Auto) Lymph # (Auto) [place] # (Auto) Eos # (Auto) Baso # (Auto) PT 13.2 INR 0.95 PTT (Actin FS) 29.5 Sodium Potassium Chloride Carbon Dioxide Anion Gap BUN Creatinine Estimated GFR/1.73 m2 BUN/Creatinine Ratio Glucose Calculated Osmolality Calcium Total Bilirubin AST ALT Alkaline Phosphatase Creatine Kinase Troponin T < 0.010 Qfm-K-Aadvomkcnyk Pept Total Protein Albumin Globulin Albumin/Globulin Ratio Orders Category Date Time Status Cardiac Monitoring DIRECTED Care 04/15/19 10:45 Active Oxygen Therapy- ED Nursing DIRECTED Care 04/15/19 10:45 Active Saline Loc NOW Care 04/15/19 10:45 Active CHEST-2 VIEWS [RAD] Stat Exams 04/15/19 10:45 Completed CBC WITH ELECTRONIC DIFF [HEME] Stat Lab 04/15/19 11:05 Completed CK PROFILE [SP CHEM] Stat Lab 04/15/19 11:05 Completed COMPREHENSIVE METABOLIC PANEL [CHEM] Stat Lab 04/15/19 11:05 Completed PRO B-NATRIURETIC PEPTIDE Stat Lab 04/15/19 11:05 Completed PROTIME WITH INR [COAG] Stat Lab 04/15/19 11:05 Completed PTT [COAG] Stat Lab 04/15/19 11:05 Completed TROPONIN T Stat Lab 04/15/19 11:05 Completed Albuterol 2.5MG/Ipratrop 0.5MG [Duoneb (A & A)] Med 04/15/19 10:54 Discontinued 3 ml INH NOW ONE Aspirin Med 04/15/19 11:56 Discontinued 325 mg PO NOW ONE Furosemide [Lasix] Med 04/15/19 11:54 Discontinued 80 mg IV NOW ONE Hydralazine [Apresoline] Med 04/15/19 11:16 Discontinued 10 mg IV NOW ONE Methylprednisolone Sod Succ [Solu-Medrol] Med 04/15/19 10:55 Discontinued 125 mg IV NOW ONE Nitroglycerin Med 04/15/19 11:57 Discontinued 1 inch TOP NOW ONE Oxycodone/APAP 5 mg/325 mg [Percocet-5] Med 04/15/19 12:12 Discontinued 1 each PO NOW ONE Promethazine [Phenergan] Med 04/15/19 12:12 Discontinued 25 mg IM NOW ONE Aerosol Treatments Routine Oth 04/15/19 10:54 Active Aerosol Treatments Stat Oth 04/15/19 10:54 Active CP/SOB/Palp >45 yrs of Age Stat Oth 04/15/19 10:44 Ordered EKG [EKG] Stat Ther 04/15/19 10:45 Ordered Lab results, imaging results, and plan of care discussed with patient who agrees with and verbalizes understanding. Result Diagrams: 04/15/19 11:05 04/15/19 11:05 - EKG 1 Time of EKG reading by physician:: 11:00 EKG Read and Signed by:: Gustavo Galeas EKG Interpretation (*Must complete 3 of following elements*): Abnormal Rate: 102 Rhythm: ST Cummings: left QRS: RBB RI Interval: normal ST Wave: normal Prior EKG Comparison: unchanged from prior (03/07/19) Comments: No acute findings per Dr. Galeas - XRAY 1 XRAY: Bilateral XRAY Study: Chest Impression: See EMR Report ([facility] - [address] , [address] [address] [facility] - [address] [place] [address] Department of Imaging Patient: MAKENZIE MAHAJAN EADM Date: 04/15/19#: [id number] : 1ADM Status: REG [facility]#: [id number] Age/Sex: 59/FRoom/Bed: Loc: P.ED Ordering Physician: Gustavo Galeas MD Family Physician: Abel Baez MD Reason for Procedure: sob chf Signed CHEST-2 VIEWS - 04/15/2019 INDICATION: sob chf COMPARISON: 03/07/2019 FINDINGS: Stable significant cardiomegaly. Stable central pulmonary vascular congestion. Stable linear atelectasis in the left upper lobe. There are some hazy interstitial infiltrates in the lung bases consistent with pulmonary edema. No large pleural effusion. IMPRESSION: Pulmonary edema. Cardiomegaly and pulmonary vascular congestion. Electronically signed by Salvador Navas 04/15/2019 12:32 PM 04/15/19 1232 Interpreting Physician: Salvador Navas MD Dictated Date/Time: 04/15/19 1214 cc: Gustavo Galeas MD; Abel Baez MD) - CONSULTS/PCP/HOSPITALIST Notification #1 *Consult/PCP/Hospitalist*: Gray Sinclairist Time Discussed: 12:14 Reason/Comments: SOB; CHF; HTN urgency; Resp. distress Consult Disposition: Admit Departure - Departure Date of Disposition Decision: 04/15/19 Time of Disposition Decision: 12:14 DIAGNOSIS: Shortness of breath, Respiratory distress, Hypertensive urgency Acute exacerbation of CHF (congestive heart failure) Qualifiers: Heart failure type: unspecified Qualified Code(s): I50.9 - Heart failure, unspecified Chest pain Qualifiers: Chest pain type: unspecified Qualified Code(s): R07.9 - Chest pain, unspecified Disposition: ADMITTED INPATIENT 09 Certified Medical Emergency: Emergent Condition: Stable Referrals and Follow-Ups: Abel Baez MD [Primary Care Provider] - - Critical Care Note This patient required my direct & personal management of CC.: Yes Total Time (mins): 45 Critical Care Statement: This patient required my direct personal management to treat or rule out processes, the absence of which, could potentiallly result in sudden, clinically significant life or limb threatening deterioration. Attestation - Physician/ [place] Attestation Patient care was provided by Advanced Practice Provider:: Yes Advanced Practice Provider:: Allyson Muse Advanced Practice Provider documentation review:: The Mid-level provider documentation, treatment plan and medical decision making was reviewed by the physician who agrees with all treatment and medical decision making by the [facility]. The physician spent face to face time with patient:: Yes (Gudelia) Advanced Practice Provider documentation review:: Supervising physician onsite and consulted in the evaluation and care of this patient. The physician did have a face to face encounter with the patient.
[2019-04-15] MEDS ORDERED: APRESOLINE IV ONE (11:16)
[2019-04-15 11:54] LABS: INR 0.95; PROTIME 13.2 Seconds (11.0-16.0); PTT 29.5 Seconds (22.3-41.8)
[2019-04-15] MEDS ORDERED: LASIX IV ONE (11:54)
[2019-04-15 11:56] LABS: BASO# 0.02 X1000 (0.0-0.2); BASO% 0.2 % (0.0-0.8); EOS# 0.24 X1000 (0.0-0.7); HEMATOCRIT 41.9 % (37.0-47.0); IMM GRAN# 0.02 X1000 (0.0-0.04); IMM GRAN% 0.2 % (0.0-0.5); LYMPH# 2.49 X1000 (1.2-3.4); LYMPH% 20.4 % (20.5-51.1); MCH 30.5 PG (27-31); MCV 98.4 FL (81-99); MONO# 0.69 X1000 (0.11-0.59); MONO% 5.7 % (1.7-9.3); NEUT# 8.73 X1000 (1.4-6.5); NEUT% 71.5 % (42.2-75.2); PLT 276 X1000 (130-400); RBC 4.26 XMIL (4.2-5.4); RDW 15.4 % (11.5-14.5); WBC 12.19 X1000 (4.8-10.8)
[2019-04-15] MEDS ORDERED: ASPIRIN PO ONE (11:56)
[2019-04-15] MEDS ORDERED: NITROGLYCERIN TOP ONE (11:57)
[2019-04-15 11:59] LABS: AGAP 10; ALBUMIN 3.9 g/dL (3.5-5.0); ALKALINE PHOSPHATASE 111 U/L (32-104); BUN 6 mg/dL (8-22); CALCIUM 9.7 mg/dL (8.8-10.2); CHLORIDE 105 mmol/L (98-107); CK PROFILE 74 U/L (24-173); COSMO 289; CREATININE 0.8 mg/dL (0.5-0.9); ESTIMATED GFR > 60; GLUCOSE 122 mg/dL (70-104); GOT 15 U/L (10-30); GPT 19 U/L (10-36); SODIUM 146 mmol/L (136-145); TCO2 31 mmol/L (25-35); TOTAL PROTEIN 7.5 g/dL (6.3-8.3)
[2019-04-15] MEDS ORDERED: PERCOCET-5 PO ONE (12:12)
[2019-04-15] MEDS ORDERED: PHENERGAN IM ONE (12:12)
--- NOTE | 2019-04-15 12:35 | Diag Imaging Result Doc PS360 ---
CHEST-2 VIEWS - 04/15/2019 INDICATION: sob chf COMPARISON: 03/07/2019 FINDINGS: Stable significant cardiomegaly. Stable central pulmonary vascular congestion. Stable linear atelectasis in the left upper lobe. There are some hazy interstitial infiltrates in the lung bases consistent with pulmonary edema. No large pleural effusion. IMPRESSION: Pulmonary edema. Cardiomegaly and pulmonary vascular congestion. Electronically signed by Salvador Navas 04/15/2019 12:32 PM
[2019-04-15] MEDS ORDERED: VASOTEC IV ONE (13:06)
[2019-04-15] MEDS ORDERED: TYLENOL PO PRN (13:44)
[2019-04-15] MEDS ORDERED: ZOFRAN IV PRN (13:44)
--- NOTE | 2019-04-15 14:20 | EKG Report ---
Test Performed on : 04/15/2019 10:55:26 AM Test Reason : sob chest pain Blood Pressure : / mmHG Vent. Rate : 102 BPM Atrial Rate : 102 BPM P-R Int : 134 ms QRS Dur : 128 ms QT Int : 398 ms P-R-T Axes : 050 -84 078 degrees QTc Int : 518 ms Sinus tachycardia. Possible Left atrial enlargement Left axis deviation Right bundle branch block Anteroseptal infarct (cited on or before 26-NOV-2009) Abnormal ECG When compared with ECG of 07-MAR-2019 11:07, (Unconfirmed) Questionable change in initial forces of Anterior leads T wave inversion less evident in Lateral leads Unconfirmed Result
[2019-04-15] MEDS ORDERED: APRESOLINE IV PRN (14:48)
[2019-04-15] MEDS ORDERED: SODIUM CHLORIDE 0.9% INJ PRN (14:48)
--- NOTE | 2019-04-15 14:54 | HISTORY AND PHYSICAL ---
PRIMARY CARE PHYSICIAN: Dr. Baez. CHIEF COMPLAINT: Shortness of breath, productive cough, wheezing, and bilateral lower extremity swelling that began yesterday and progressively worsened, and it was at its worst around 4 a.m. this morning. States she has also had some bilateral chest pain, nausea and vomiting for the past 3 days. When she arrived to the emergency room, she did have an O2 saturation of 88% on room air. HISTORY OF PRESENTING ILLNESS: This is a 59-year-old female, who presents to [facility] ER with complaints of shortness of breath, a productive cough with green sputum, wheezing, bilateral lower extremity edema, and some nausea, vomiting, and bilateral chest pain over the past several days that progressively worsened, and was at its worst around 4 a.m. this morning. When she arrived, she had an O2 saturation on room air of 88%. She was placed on O2 via 2 L via nasal cannula and it came up to 100%. Her blood pressure on arrival was 158/103, did get as high as 207/130. Her chest x-ray showed pulmonary edema and cardiomegaly and pulmonary vascular congestion. It is noted she was in the hospital from 03/07/2019 and was transferred at that time to [facility] to the Cardiothoracic Surgery Department of Dr. Ya. She was noted to have shortness of breath at that time secondary to an enlarged thyroid goiter with subcutaneous sternal extension causing severe thoracic tracheal compression. We had done an echocardiogram on 03/07/2019 that showed an ejection fraction of 25% at that time. While in the emergency room today, she has been given nitroglycerin 1 inch topically x1, Apresoline 10 mg IV x1, Lasix 80 mg IV x1, and was just given Vasotec 1.25 mg IV x1. Blood pressure is currently 161/131. We will give that Vasotec time to work before we add any further interventions, but she will be admitted for further evaluation and treatment. PAST MEDICAL HISTORY: An [place] in 2010, COPD, CHF, hyperlipidemia, hypertension, obstructive sleep apnea, coronary artery disease, morbid obesity, GERD, chronic headache, and neck pain. PAST SURGICAL HISTORY: A cholecystectomy, section, hysterectomy, coronary stenting x2, and shoulder surgery. FAMILY HISTORY: Her mother has hypothyroidism and hypertension. Father of heart problems and alcohol abuse. She does have significant family history for type 2 diabetes and coronary artery disease. SOCIAL HISTORY: She currently lives with family. Denies any tobacco use, but is a former smoker. Denies any alcohol or illicit drug use. ALLERGIES: Naproxen sodium, Midrin, Toradol, naproxen, tramadol, acetaminophen, ibuprofen, morphine and ondansetron. HOME MEDICATIONS: A current list will need to be obtained, reconciled, reviewed and restarted as appropriate. Will place an order for nursing to update and confirm home medications. LABORATORY DATA: Showed a white blood cell count of 12.19, hemoglobin 13, hematocrit 41.9, platelets 276. PT and INR of 13.2 and 0.95. Sodium 146, potassium 4.0, chloride 105, CO2 31. BUN of 6, creatinine 0.8, glucose 122. Cardiac enzyme was negative. ProBNP of 1621. X-RAY DATA: Chest x-ray showed pulmonary edema, cardiomegaly and pulmonary vascular congestion. REVIEW OF SYSTEMS: She denied any fever, chills, blurred vision, dizziness. She had shortness of breath, a productive cough of green sputum, wheezing. Denied any abdominal pain, constipation, diarrhea. She was positive for nausea, vomiting. Denied any burning or hurting with urination. PHYSICAL EXAMINATION: VITAL SIGNS: On arrival she had a temperature of 99.4 degrees, pulse 97, respirations 18, blood pressure 158/103, satting 94% on room air. Blood pressure did get up to 207/130, currently is at 161/131. Just received Vasotec 1.25 mg IV x1. Will recheck in about 15 to 20 minutes. Currently saturating 97% on 3 L via nasal cannula. GENERAL: This is a 59-year-old female, who is sitting up in the bed. Answers questions appropriately. HENT: Normocephalic, atraumatic. Normal ENT inspection. Oropharynx and nares are clear. EYES: Pupils are equal, round, reactive to light and accommodation. Extraocular movements are intact. NECK: Normal inspection, normal range of motion. LUNGS: With wheezing throughout her lung montes. Increased work of breathing noted. Equal lung expansion and chest wall movement. HEART: With regular rate and rhythm. No murmurs, rubs, or gallops. ABDOMEN: Soft, nontender, nondistended. Bowel sounds are present x4 quadrants MUSCULOSKELETAL: She had 5/5 strength x4 extremities. She was noted to have 1+ nonpitting edema to bilateral lower extremities. NEUROLOGICAL: The cranial nerves 2-12 are grossly intact. ASSESSMENT: 1. An acute congestive heart failure exacerbation. 2. Malignant hypertension. 3. Hypernatremia. 4. An acute respiratory failure secondary to #1. PLAN: She will be admitted to the medical unit, placed on telemetry O2 per protocol, healthy heart diet, Lasix 40 mg IV q. 12 hours, hydralazine 10 mg IV q. 4 hours p.r.n. for a systolic blood pressure greater than 190, diastolic greater than 100. We are not going to repeat her echocardiogram because she just had it a little over a month ago. Again, that showed an ejection fraction of 25%. We will recheck a CBC, BMP in the a.m., and we will give her Phenergan 25 mg IV q. 4 hours p.r.n. for any nausea, vomiting. Further orders after seen by attending. Dictated by JOYCE Christina for Prateek Sinclair MD cc: JOYCE Christina MD Moses Awoniyi, MD
[2019-04-15] MEDS: DILAUDID IV PRN (20:29)
[2019-04-15] MEDS: NITROGLYCERIN TOP SCH (20:30)
[2019-04-15] MEDS: COREG PO SCH (20:30)
[2019-04-15] MEDS: LIPITOR PO SCH (20:31)
[2019-04-15] MEDS: XANAX PO SCH (20:31)
[2019-04-15] MEDS: APRESOLINE PO SCH (20:31)
[2019-04-15] MEDS: PHENERGAN IV PRN (20:31)
[2019-04-15] MEDS: ZANAFLEX PO SCH (20:31)
[2019-04-15] MEDS: LASIX IV SCH (20:32)
--- NOTE | 2019-04-15 21:03 | PROGRESS NOTE ---
DATE: 04/15/2019 SUBJECTIVE: The patient came in with shortness of breath and chest pressure. She has CHF and COPD. She came in with shortness of breath. She had a large thyroid goiter which was causing thoracic tracheal compression. I am not entirely sure what was done at [place], so we will continue diuresis. OBJECTIVE: On exam she has got rales and we will continue to follow closely. She is also hypertensive emergency. cc: Prateek Sinclair MD
[2019-04-16] MEDS ORDERED: BLISTEX MEDICATED BERRY LIP BALM TOP ONE
[2019-04-16] MEDS: NITROGLYCERIN TOP SCH ×4 (00:14→21:19)
[2019-04-16] MEDS: PHENERGAN IV PRN ×3 (00:45→08:54)
[2019-04-16] MEDS: DILAUDID IV PRN ×5 (00:45→21:31)
[2019-04-16 07:18] LABS: BASO# 0.01 X1000 (0.0-0.2); BASO% 0.1 % (0.0-0.8); HEMATOCRIT 39.7 % (37.0-47.0); HEMOGLOBIN 12.3 g/dL (12.0-16.0); IMM GRAN# 0.03 X1000 (0.0-0.04); IMM GRAN% 0.2 % (0.0-0.5); LYMPH# 1.84 X1000 (1.2-3.4); LYMPH% 11.1 % (20.5-51.1); MCH 29.9 PG (27-31); MCV 96.4 FL (81-99); MONO# 1.01 X1000 (0.11-0.59); MONO% 6.1 % (1.7-9.3); MPV 10.4 FL (7.4-10.4); NEUT# 13.67 X1000 (1.4-6.5); NEUT% 82.5 % (42.2-75.2); PLT 288 X1000 (130-400); RBC 4.12 XMIL (4.2-5.4); RDW 15.2 % (11.5-14.5); WBC 16.56 X1000 (4.8-10.8)
[2019-04-16 08:03] LABS: AGAP 11; BUN 14 mg/dL (8-22); CALCIUM 9.9 mg/dL (8.8-10.2); CHLORIDE 99 mmol/L (98-107); COSMO 278; CREATININE 0.9 mg/dL (0.5-0.9); ESTIMATED GFR > 60; GLUCOSE 140 mg/dL (70-104); POTASSIUM 3.7 mmol/L (3.5-5.1); SODIUM 138 mmol/L (136-145); TCO2 28 mmol/L (25-35)
--- NOTE | 2019-04-16 08:31 | Diag Imaging Result Doc PS360 ---
CT THORAX W/CONTRAST - 04/16/2019 INDICATION: pneumonia COMPARISON: Chest x-ray 04/15/2019 FINDINGS: Stable diffuse enlargement of the thyroid. There is significant cardiomegaly. There is severe thinning of the myocardium at the left ventricular apex compatible with an old apical infarction. No adenopathy. There are cholecystectomy clips. Otherwise upper abdomen appears normal. There is some hazy interstitial ground glass opacity bilaterally suggesting pulmonary edema. There is some mild multifocal linear atelectasis. Severe degenerative changes of the spine. No acute bony lesions. IMPRESSION: Cardiomegaly. Hazy interstitial pulmonary edema. Significant multifocal atelectasis. This exam was performed using automated exposure control, adjustment of mA or kV according to patient size, and/or use of iterative reconstruction technique Electronically signed by Salvador Navas 04/16/2019 8:29 AM
[2019-04-16] MEDS: COREG PO SCH ×2 (08:55→21:19)
[2019-04-16] MEDS: ZANAFLEX PO SCH ×2 (08:55→21:19)
[2019-04-16] MEDS: APRESOLINE PO SCH ×2 (08:55→14:08)
[2019-04-16] MEDS: LASIX IV SCH ×2 (09:46→21:19)
[2019-04-16] MEDS ORDERED: PNEUMOVAX 23 IM ONE (10:00)
--- NOTE | 2019-04-16 17:15 | CARDIOLOGY CONSULTATION ---
DATE: 04/16/2019 CHIEF COMPLAINT ON PRESENTATION: Shortness of breath. HISTORY OF PRESENT ILLNESS: Ms. Smith is a 59-year-old black female with a history of ischemic cardiomyopathy who presented for evaluation of shortness of breath that has been going on for some time which sounds like several weeks to several months, but it got acutely worse yesterday morning and woke her from sleep around 4 o'clock in the morning. She denies any overt chest pain but had some smothering type sensations. She reports compliance with her medications in the interim. She has had no chest pain. She has had no wheezing type sounds. No orthopnea. PAST MEDICAL HISTORY: 1. Significant for an ischemic cardiomyopathy with history of myocardial infarction. She had an occluded LAD in 2009 that was treated medically. Subsequent nuclear scans have demonstrated an anterior scar with ejection fractions in the 30 to 35% range. Her most recent cardiac catheterization was in January of 2018 and at that time, she had mild coronary irregularities with a continued patent stent in the LAD and right coronary with no evidence of significant in- stent stenosis. 2. Hypertension. 3. Hyperlipidemia. 4. Peripheral arterial disease as evidenced by an aortography showing a right iliac proximal mid 75% lesion with a femoral artery that was subtotally occluded. 5. COPD. 6. Reflux disease. 7. Diabetes. 8. Morbid obesity. 9. Thyroid goiter. SOCIAL HISTORY: She does not smoke. Previously smoked but not currently. She lives with family. No alcohol. No illicit drugs. FAMILY HISTORY: Significant for hypothyroidism and hypertension in her mother. Father of some sort of heart problems, as well as alcohol abuse. She has a history of diabetes in her family. REVIEW OF SYSTEMS: A 10 system review of systems is negative except for those things mentioned in the HPI. PHYSICAL EXAMINATION: Vital signs: The patient is afebrile. Heart rate 79, blood pressure 128/78. General: She is in no acute distress. HEENT: Oropharynx is moist. Poor dentition. Neck: Examination shows a markedly swollen and nontender thyroid that appears symmetric. Cardiovascular: She sounds to be in a regular rate and rhythm. She has no obvious murmurs. She has no S3. She has no overt lower extremity edema. Chest: Sounds relatively clear. She has no increased work of breathing. Abdomen: Soft, nontender, nondistended. No obvious organomegaly. Skin: Warm and dry throughout without any rashes. Neurological: She is moving all extremities well. She has no lateralizing deficits. PERTINENT DATA: Her electrocardiogram shows sinus mechanism. She has poor R-wave progression suggesting an anterior scar. She has no acute ischemic changes. Her chest CT demonstrated cardiomegaly. Hazy interstitial pulmonary edema. A stable diffuse enlargement of the thyroid that previously had compressed the trachea down to a 12 x 6 mm dimension as evidenced by a pulmonary arteriogram in February of 2019. Her white count is 16.5. Her hematocrit is 39. Her platelet count is 288,000. Her sodium is 138, potassium 3.7, BUN 14, creatinine 0.9. Her proBNP yesterday was 1,621. Cardiac enzymes are negative. ASSESSMENT: Mr. Rg Smith is a 59-year-old female with an ischemic cardiomyopathy. PLAN: I will discuss the case with the general surgeons regarding further treatment of her goiter. I believe considering the size and her current and potential future impingement on the trachea, she will likely need it removed. I am unclear exactly why she is not on an ZULY inhibitor or an ARB. I do not see any documented allergies in [facility], nor do I see a documentation of an ZULY or an ARB allergy here in the hospital. Her last ejection fraction by echocardiogram in February of 2019 showed an EF of 25% with wall motion abnormalities in the apical and anterior septal regions. I will discontinue her hydralazine which currently is at 25 t.i.d. and initiate her on Entresto at 24/26 b.i.d. We will recheck laboratories in the morning. She is currently on a high dose beta-bozena which we will continue and currently is on Lasix. We will ensure she has basic metabolic panels and a proBNP in the morning. cc: Kirby Frey MD
[2019-04-16] MEDS: LIPITOR PO SCH (21:19)
[2019-04-16] MEDS: XANAX PO SCH (21:19)
[2019-04-16] MEDS: ENTRESTO 24 MG-26 MG TABLET PO SCH (21:19)
--- NOTE | 2019-04-16 22:21 | PROGRESS NOTE ---
DATE: 04/16/2019 SUBJECTIVE: Patient has no major complaints. OBJECTIVE: Blood pressure is 128/78, heart rate 79, respiratory rate 18, temperature 97.9 degrees.Cardiovascular: Regular rate and rhythm. Pulmonary: Bilateral breath sounds, diminished at the bases with some rales at the bases. Gastrointestinal: Soft, nontender, nondistended. Bowel sounds positive. LABORATORY DATA: White count 16, hemoglobin and hematocrit 12 and 39, platelets 288,000. Basic was normal. PROBLEM LIST: 1. Congestive heart failure exacerbation. We will continue diuretics and follow closely on a regular medications. Cardiology consult has been put in. We will get repeat chest CT to evaluate for tracheal stenosis and follow closely. 2. Hypertension. It is better controlled. We will continue regular medications, adjust as follows. 3. Tracheal stenosis. Will repeat CT and evaluate for possible other tracheal stenosis, and we will get an ENT consultation to evaluate for any other issues there. DISPOSITION: Pending clinical status, another 1 to 2 days. cc: Prateek Sinclair MD
[2019-04-17] MEDS: DILAUDID IV PRN ×5 (02:46→21:09)
[2019-04-17] MEDS: NITROGLYCERIN TOP SCH ×2 (02:46→09:07)
[2019-04-17 07:04] LABS: BASO# 0.03 X1000 (0.0-0.2); BASO% 0.2 % (0.0-0.8); EOS# 0.16 X1000 (0.0-0.7); EOS% 1.2 % (0.0-10.0); HEMATOCRIT 40.2 % (37.0-47.0); HEMOGLOBIN 12.3 g/dL (12.0-16.0); IMM GRAN# 0.02 X1000 (0.0-0.04); IMM GRAN% 0.1 % (0.0-0.5); LYMPH# 3.84 X1000 (1.2-3.4); LYMPH% 28.3 % (20.5-51.1); MCH 30.1 PG (27-31); MCHC 30.6 g/dL (33-37); MCV 98.3 FL (81-99); MONO# 1.16 X1000 (0.11-0.59); MONO% 8.5 % (1.7-9.3); MPV 10.6 FL (7.4-10.4); NEUT# 8.38 X1000 (1.4-6.5); NEUT% 61.7 % (42.2-75.2); PLT 247 X1000 (130-400); RBC 4.09 XMIL (4.2-5.4); RDW 15.6 % (11.5-14.5); WBC 13.59 X1000 (4.8-10.8)
[2019-04-17 07:16] LABS: AGAP 12; BUN 19 mg/dL (8-22); CALCIUM 9.3 mg/dL (8.8-10.2); CHLORIDE 99 mmol/L (98-107); COSMO 287; CREATININE 0.8 mg/dL (0.5-0.9); ESTIMATED GFR > 60; GLUCOSE 130 mg/dL (70-104); MAGNESIUM 1.5 mg/dL (1.5-2.7); POTASSIUM 3.5 mmol/L (3.5-5.1); SODIUM 142 mmol/L (136-145); TCO2 31 mmol/L (25-35)
[2019-04-17] MEDS: LASIX IV SCH ×2 (09:07→21:10)
[2019-04-17] MEDS: ENTRESTO 24 MG-26 MG TABLET PO SCH ×2 (09:07→21:10)
[2019-04-17] MEDS: ZANAFLEX PO SCH ×2 (09:07→21:10)
[2019-04-17] MEDS: COREG PO SCH ×2 (09:07→21:10)
[2019-04-17] MEDS ORDERED: FIORICET PO PRN (11:00)
[2019-04-17] MEDS: BREO ELLIPTA 200/25 MCG INH INH SCH ×2 (11:55)
[2019-04-17] MEDS: PAMELOR PO SCH ×3 (12:28→21:10)
[2019-04-17] MEDS: IMDUR PO SCH (12:28)
[2019-04-17] MEDS: APRESOLINE PO SCH ×2 (16:40→21:10)
[2019-04-17] MEDS: LIPITOR PO SCH (21:10)
[2019-04-17] MEDS: XANAX PO SCH (21:10)
[2019-04-18] MEDS: DILAUDID IV PRN ×4 (04:55→20:47)
[2019-04-18 06:04] LABS: BASO# 0.03 X1000 (0.0-0.2); BASO% 0.2 % (0.0-0.8); EOS# 0.32 X1000 (0.0-0.7); EOS% 2.1 % (0.0-10.0); HEMATOCRIT 41.3 % (37.0-47.0); HEMOGLOBIN 12.3 g/dL (12.0-16.0); IMM GRAN# 0.03 X1000 (0.0-0.04); IMM GRAN% 0.2 % (0.0-0.5); LYMPH# 3.95 X1000 (1.2-3.4); LYMPH% 26.1 % (20.5-51.1); MCH 29.4 PG (27-31); MCHC 29.8 g/dL (33-37); MCV 98.8 FL (81-99); MONO# 1.27 X1000 (0.11-0.59); MONO% 8.4 % (1.7-9.3); MPV 10.5 FL (7.4-10.4); NEUT# 9.51 X1000 (1.4-6.5); PLT 264 X1000 (130-400); RBC 4.18 XMIL (4.2-5.4); RDW 15.5 % (11.5-14.5); WBC 15.11 X1000 (4.8-10.8)
[2019-04-18 06:50] LABS: AGAP 11; BUN 20 mg/dL (8-22); CALCIUM 9.4 mg/dL (8.8-10.2); CHLORIDE 99 mmol/L (98-107); COSMO 290; CREATININE 0.8 mg/dL (0.5-0.9); ESTIMATED GFR > 60; GLUCOSE 172 mg/dL (70-104); MAGNESIUM 1.5 mg/dL (1.5-2.7); POTASSIUM 3.9 mmol/L (3.5-5.1); SODIUM 142 mmol/L (136-145); TCO2 32 mmol/L (25-35)
[2019-04-18] MEDS: BREO ELLIPTA 200/25 MCG INH INH SCH (07:35)
[2019-04-18] MEDS: IMDUR PO SCH (10:00)
[2019-04-18] MEDS: ENTRESTO 24 MG-26 MG TABLET PO SCH ×2 (10:00→20:50)
[2019-04-18] MEDS: SINGULAIR PO SCH (10:00)
[2019-04-18] MEDS: LASIX IV SCH ×2 (10:00→20:51)
[2019-04-18] MEDS: PAMELOR PO SCH ×4 (10:00→20:52)
[2019-04-18] MEDS: COREG PO SCH ×2 (10:00→20:50)
[2019-04-18] MEDS: ZANAFLEX PO SCH ×2 (10:00→20:50)
[2019-04-18] MEDS: APRESOLINE PO SCH ×3 (10:00→20:50)
[2019-04-18] MEDS: ALDACTONE PO SCH (10:00)
[2019-04-18] MEDS: LIPITOR PO SCH (20:50)
[2019-04-18] MEDS: XANAX PO SCH (20:50)
[2019-04-19] MEDS: DILAUDID IV PRN ×2 (05:56→12:50)
[2019-04-19] MEDS: PHENERGAN IV PRN ×2 (05:56→14:48)
[2019-04-19] MEDS: BREO ELLIPTA 200/25 MCG INH INH SCH (07:43)
[2019-04-19] MEDS: ENTRESTO 24 MG-26 MG TABLET PO SCH ×2 (08:35→21:33)
[2019-04-19] MEDS: COREG PO SCH ×2 (08:35→21:33)
[2019-04-19] MEDS: IMDUR PO SCH (08:36)
[2019-04-19] MEDS: LASIX IV SCH ×2 (08:36→21:33)
[2019-04-19] MEDS: ZANAFLEX PO SCH ×2 (08:36→21:33)
[2019-04-19] MEDS: SINGULAIR PO SCH (08:36)
[2019-04-19] MEDS: ALDACTONE PO SCH (08:36)
[2019-04-19] MEDS: APRESOLINE PO SCH ×3 (08:36→21:33)
[2019-04-19] MEDS ORDERED: LASIX IV ONE (09:14)
--- NOTE | 2019-04-19 09:35 | PROGRESS NOTE ---
DATE: 04/19/2019 SUBJECTIVE: The patient complains of having some shortness of breath and difficulty breathing. She denies having any other complaints. OBJECTIVE: Vital Signs: Temperature 97.8 degrees, pulse 79 per minute, respiratory rate 20 per minute, blood pressure 119/67, pulse oximetry 100% on 2 L of oxygen via nasal cannula. General: Patient is alert and oriented x3. She does not appear to be in any acute distress. Cardiovascular System: First and second heart sounds are audible without murmurs or gallops. Respiratory System: Bilateral lung air entry is moderately decreased with a few bilateral wheezes present on auscultation. Gastrointestinal System: Patient is morbidly obese. Normal bowel sounds are present. Abdomen is nontender on palpation. Musculoskeletal system: No deformities are present. DIAGNOSTIC DATA: No new diagnostic data has been performed today. IMPRESSION: 1. Acute systolic congestive heart failure in this 59-year-old lady who has history of ischemic cardiomyopathy with left ventricular ejection fraction estimated at 25%. 2. Hypertension. PLAN: We are going to continue with IV Lasix 40 mg twice daily, but I am going to give her an extra 40 mg of IV Lasix today because of her wheeze. She will continue with spironolactone 25 mg orally once daily, along with Entresto and Imdur. We will also continue with carvedilol and atorvastatin along with supportive care. Cardiology is following the case. I am going to repeat labs in the morning tomorrow. We will give further recommendations as per hospital course. cc: Dejuan Banks MD
[2019-04-19] MEDS: PAMELOR PO SCH ×4 (10:46→21:33)
[2019-04-19] MEDS ORDERED: NORCO-7.5 PO PRN (16:24)
[2019-04-19] MEDS: XANAX PO SCH (21:32)
[2019-04-19] MEDS: LIPITOR PO SCH (21:33)
[2019-04-20] MEDS: DILAUDID IV PRN ×2 (01:35→09:48)
[2019-04-20 05:59] LABS: BASO# 0.02 X1000 (0.0-0.2); BASO% 0.1 % (0.0-0.8); EOS# 0.27 X1000 (0.0-0.7); HEMATOCRIT 39.4 % (37.0-47.0); IMM GRAN# 0.03 X1000 (0.0-0.04); IMM GRAN% 0.2 % (0.0-0.5); LYMPH# 3.25 X1000 (1.2-3.4); LYMPH% 23.9 % (20.5-51.1); MCH 29.7 PG (27-31); MCHC 30.5 g/dL (33-37); MCV 97.5 FL (81-99); MONO# 0.92 X1000 (0.11-0.59); MONO% 6.8 % (1.7-9.3); MPV 10.4 FL (7.4-10.4); NEUT# 9.08 X1000 (1.4-6.5); PLT 257 X1000 (130-400); RBC 4.04 XMIL (4.2-5.4); RDW 15.3 % (11.5-14.5); WBC 13.57 X1000 (4.8-10.8)
[2019-04-20 06:40] LABS: AGAP 10; BUN 12 mg/dL (8-22); CALCIUM 9.6 mg/dL (8.8-10.2); CHLORIDE 96 mmol/L (98-107); COSMO 278; CREATININE 0.8 mg/dL (0.5-0.9); ESTIMATED GFR > 60; GLUCOSE 142 mg/dL (70-104); MAGNESIUM 1.6 mg/dL (1.5-2.7); POTASSIUM 3.6 mmol/L (3.5-5.1); SODIUM 138 mmol/L (136-145); TCO2 33 mmol/L (25-35)
[2019-04-20] MEDS: BREO ELLIPTA 200/25 MCG INH INH SCH (08:36)
[2019-04-20] MEDS: LASIX IV SCH (09:48)
[2019-04-20] MEDS: COREG PO SCH (09:51)
[2019-04-20] MEDS: IMDUR PO SCH (09:51)
[2019-04-20] MEDS: PAMELOR PO SCH ×2 (09:51→14:29)
[2019-04-20] MEDS: SINGULAIR PO SCH (09:51)
[2019-04-20] MEDS: ALDACTONE PO SCH (09:51)
[2019-04-20] MEDS: APRESOLINE PO SCH ×2 (09:51→14:29)
[2019-04-20] MEDS: ENTRESTO 24 MG-26 MG TABLET PO SCH (09:51)
[2019-04-20] MEDS: ZANAFLEX PO SCH (09:51)
[2019-04-20] MEDS ORDERED: LASIX PO SCH (10:30)
--- NOTE | 2019-04-20 13:00 | DISCHARGE SUMMARY ---
ADMISSION DATE: 04/15/2019 DISCHARGE DATE: 04/20/2019 DISCHARGE DIAGNOSES: 1. Acute systolic congestive heart failure secondary to ischemic cardiomyopathy. 2. Uncontrolled hypertension. 3. Acute respiratory failure secondary to #1. 4. Goiter. HOSPITAL COURSE: Ms. Smith is a 59-year-old female who presented to the emergency department with complaint of having progressively worsening shortness of breath for the previous several weeks. She was noted to have acute systolic congestive heart failure secondary to ischemic cardiomyopathy after which she was admitted to the hospital and was given IV diuretics with which her condition improved. Cardiology consultation was obtained who made some changes to her medications including starting her on Entresto 24/26 orally twice daily. Her condition has since improved and therefore she is going to be discharged home today. She was found to have some goiter and it is recommended that she be seen by General Surgery for the possibility of having thyroidectomy so that her thyroid does not encroach upon her trachea causing her breathing issues. Since her condition has improved, she is going to be discharged home today. DISCHARGE MEDICATIONS: 1. Entresto 24/26 orally twice daily. 2. Furosemide 80 mg orally twice daily. 3. Alprazolam 2 mg orally once daily at bedtime. 4. Atorvastatin 40 mg orally once daily at bedtime. 5. Carvedilol 25 mg orally twice daily. 6. Breo Ellipta inhaler 1 inhalation once daily. 7. Hydralazine 25 mg orally 3 times a day. 8. Imdur 60 mg orally once daily. 9. Montelukast 10 mg orally once daily. 10. Nortriptyline 25 mg orally 4 times a day. 11. Spironolactone 25 mg orally once daily in the morning. 12. Tizanidine 4 mg orally twice daily. 13. Albuterol inhalation via nebulizer 4 times a day as needed as directed. 14. Fioricet 1 pill orally every 6 hours as needed for headache. FOLLOW-UP: She will follow up with her PCP, Dr. Choi, within the next 1 to 2 weeks. She is also recommended to follow up with Dr. Keene to be evaluated for sleep apnea. Furthermore, we are recommending her to be evaluated by General Surgery for thyroid enlargement. CONDITION: Stable. DISPOSITION: Home. cc: MD Abel Smyth MD
[2019-04-20 14:06] VITALS: BP 108/65
== END 2019-04-20 14:12 | disposition home or self-care (01) ==
LOC: P.ED 10:33 → P.MEDSURG 14:23 → SUATTDRO 14:23 → INTOOBSV 14:23
PROVIDERS: ATTEND Internal Medicine

== ENCOUNTER 2019-06-11 12:53 | Observation (INO) ==
--- NOTE | 2019-06-11 13:51 | Diag Imaging Result Doc PS360 ---
EXAM: CHEST-1 VIEW HISTORY: sob TECHNIQUE: Single view COMPARISON: 04/15/2019 FINDINGS: The lungs are well expanded. The heart is mildly enlarged. The central vascular prominence. Pulmonary edema is actually less prominent than on the prior study. No pleural effusions identified. No pneumonia. IMPRESSION: Cardiomegaly with central vascular prominence Electronically signed by Krish Call 06/11/2019 1:48 PM
[2019-06-11 14:16] LABS: INR 0.98; PROTIME 13.5 Seconds (11.0-16.0)
[2019-06-11 14:17] LABS: PTT 22.1 Seconds (22.3-41.8)
[2019-06-11 14:49] LABS: BASO# 0.01 X1000 (0.0-0.2); BASO% 0.1 % (0.0-0.8); EOS# 0.95 X1000 (0.0-0.7); EOS% 8.4 % (0.0-10.0); HEMATOCRIT 39.5 % (37.0-47.0); HEMOGLOBIN 12.1 g/dL (12.0-16.0); IMM GRAN# 0.07 X1000 (0.0-0.04); IMM GRAN% 0.6 % (0.0-0.5); LYMPH# 3.21 X1000 (1.2-3.4); LYMPH% 28.4 % (20.5-51.1); MCH 29.2 PG (27-31); MCHC 30.6 g/dL (33-37); MCV 95.2 FL (81-99); MONO# 0.77 X1000 (0.11-0.59); MONO% 6.8 % (1.7-9.3); MPV 12.2 FL (7.4-10.4); NEUT# 6.29 X1000 (1.4-6.5); NEUT% 55.7 % (42.2-75.2); PLT 227 X1000 (130-400); RBC 4.15 XMIL (4.2-5.4); RDW 14.9 % (11.5-14.5)
[2019-06-11] MEDS ORDERED: DEMEROL IV ONE ×2 (14:57→16:51)
[2019-06-11] MEDS ORDERED: PHENERGAN IM ONE (14:57)
[2019-06-11 15:01] LABS: AGAP 15; ALBUMIN 3.8 g/dL (3.5-5.0); ALKALINE PHOSPHATASE 86 U/L (32-104); BUN 10 mg/dL (8-22); CALCIUM 9.2 mg/dL (8.8-10.2); CHLORIDE 104 mmol/L (98-107); COSMO 281; CREATININE 0.9 mg/dL (0.5-0.9); ESTIMATED GFR > 60; GLUCOSE 108 mg/dL (70-104); GOT 12 U/L (10-30); GPT 7 U/L (10-36); POTASSIUM 4.4 mmol/L (3.5-5.1); SODIUM 141 mmol/L (136-145); TCO2 22 mmol/L (25-35); TOTAL PROTEIN 7.5 g/dL (6.3-8.3)
[2019-06-11] MEDS: LASIX IV SCH (17:52)
--- NOTE | 2019-06-11 18:25 | EKG Report ---
Test Performed on : 06/11/2019 1:12:48 PM Test Reason : sob Blood Pressure : / mmHG Vent. Rate : 090 BPM Atrial Rate : 090 BPM P-R Int : 168 ms QRS Dur : 134 ms QT Int : 436 ms P-R-T Axes : 052 -85 077 degrees QTc Int : 533 ms Normal sinus rhythm. Possible Left atrial enlargement Left axis deviation Right bundle branch block Septal infarct (cited on or before 26-NOV-2009) Abnormal ECG When compared with ECG of 15-APR-2019 10:55, (Unconfirmed) Questionable change in initial forces of Anterior leads Unconfirmed Result
[2019-06-11] MEDS ORDERED: DEMEROL IV PRN (19:19)
[2019-06-11] MEDS ORDERED: TYLENOL PO PRN (19:19)
[2019-06-11] MEDS: DUONEB (A & A) INH SCH (20:16)
[2019-06-11] MEDS: SOLU-MEDROL IV SCH (20:45)
[2019-06-11] MEDS: LOVENOX SUBQ SCH (20:45)
[2019-06-11 21:57] LABS: CALCIUM 9.3 mg/dL (8.8-10.2)
[2019-06-12] MEDS: DUONEB (A & A) INH SCH ×7 (00:11→23:16)
[2019-06-12] MEDS: PHENERGAN IV PRN ×3 (01:12→10:35)
[2019-06-12] MEDS: DILAUDID IV PRN ×5 (01:12→21:09)
[2019-06-12] MEDS: SODIUM CHLORIDE 0.9% INJ PRN ×3 (01:13→10:36)
[2019-06-12 04:29] LABS: BASO# 0.01 X1000 (0.0-0.2); BASO% 0.1 % (0.0-0.8); EOS# 0.01 X1000 (0.0-0.7); EOS% 0.1 % (0.0-10.0); HEMATOCRIT 39.2 % (37.0-47.0); IMM GRAN# 0.02 X1000 (0.0-0.04); IMM GRAN% 0.2 % (0.0-0.5); LYMPH# 1.45 X1000 (1.2-3.4); LYMPH% 12.4 % (20.5-51.1); MCH 29.2 PG (27-31); MCHC 30.6 g/dL (33-37); MCV 95.4 FL (81-99); MONO# 0.06 X1000 (0.11-0.59); MONO% 0.5 % (1.7-9.3); MPV 11.1 FL (7.4-10.4); NEUT# 10.11 X1000 (1.4-6.5); NEUT% 86.7 % (42.2-75.2); PLT 249 X1000 (130-400); RBC 4.11 XMIL (4.2-5.4); RDW 14.7 % (11.5-14.5); WBC 11.66 X1000 (4.8-10.8)
[2019-06-12] MEDS: LASIX IV SCH ×2 (04:43→17:11)
[2019-06-12] MEDS: SOLU-MEDROL IV SCH ×3 (04:43→18:55)
[2019-06-12] MEDS: PRILOSEC PO SCH (06:31)
--- NOTE | 2019-06-12 07:10 | HISTORY AND PHYSICAL ---
PRIMARY CARE PHYSICIAN: Dr. Baez. CHIEF COMPLAINT: Chest pain. HISTORY OF PRESENTING ILLNESS: This is a 59-year-old, morbidly obese female who is well known to the hospitalist service presents to [facility] ER with complaints of chest pain that radiates up into her left armpit with some shortness of breath over the last several days that progressively worsened. When she arrived to the emergency room she was saturating 93% on room air. Blood pressure was 175/102. Her first set of cardiac enzyme was negative. Her chest x-ray showed cardiomegaly with central vascular prominence. So, she will be admitted for further evaluation and treatment. PAST MEDICAL HISTORY: [place] in 2010, COPD, CHF, hyperlipidemia, hypertension, obstructive sleep apnea, coronary artery disease, morbid obesity, GERD, chronic headache, and neck pain. PAST SURGICAL HISTORY: A cholecystectomy, section, hysterectomy, coronary stenting x2 and a shoulder surgery. FAMILY HISTORY: Mother has hypothyroidism and hypertension. Father of heart problems and alcohol abuse and has a significant family history of type 2 diabetes and coronary artery disease. SOCIAL HISTORY: She currently lives with family. Denies any tobacco, but is a former smoker and denies any alcohol or illicit drug use. ALLERGIES: Naproxen sodium, Midrin, Toradol, naproxen, tramadol, acetaminophen, ibuprofen, morphine and ondansetron. HOME MEDICATIONS: We will need to obtain a current list, reconcile review and restart as appropriate. We will place an order for nursing to update and confirm home medications. LABORATORY DATA: Showed a white blood cell count of 11.30, hemoglobin 12.1, hematocrit 39.5, platelets 227,000. PT and INR of 13.5 and 0.98. Sodium 141, potassium 4.4, chloride 104, CO2 22, BUN of 10, creatinine 0.9, glucose 108. Troponin was negative. ProBNP of 487. Chest x-ray showed cardiomegaly with central vascular prominence. REVIEW OF SYSTEMS: She denied any fever, chills, blurred vision, dizziness. She did have chest pain that radiated substernal underneath her left armpit, shortness of breath. Denied any abdominal pain, constipation, diarrhea, burning or hurting with urination. PHYSICAL EXAMINATION: On arrival she had a temperature of 99.9 degrees, pulse 98, respirations 28, blood pressure 175/102 saturating 93% on room air. GENERAL: This is a 59-year-old, morbidly obese female sitting up in the bed and answers questions appropriately. HEENT: Normocephalic, atraumatic. Normal ENT inspection. Oropharynx and nares are clear. EYES: Pupils are equal, round, reactive to light and accommodation. Extraocular movements are intact. NECK: Normal inspection, normal range of motion. LUNGS: With wheezing throughout entire posterior lung montes. Equal lung expansion. Chest wall movement noted. HEART: Regular rate and rhythm. No murmurs, rubs, or gallops. ABDOMEN: Soft, nontender, nondistended. Bowel sounds are present x4 quadrants. MUSCULOSKELETAL: She had 5/5 strength x4 extremities. NEUROLOGICAL: The cranial nerves 2-12 appear grossly intact. ASSESSMENT: 1. Chest pain. 2. Dyspnea. 3. Hypertension. 4. Goiter. PLAN: She will be admitted to the medical unit at [place], placed on telemetry, O2 per protocol. Serial cardiac enzymes. Place on Solu-Medrol 60 mg IV q.8 and wean as she improves. DuoNeb q.4 hours, Demerol 25 mg IV q.4 hours p.r.n. We will complete her serial cardiac enzymes. Place on healthy heart diet. Again we will update and confirm home medications. She has had a history according to her discharge summary on 04/20/2019 of a goiter and has been recommended to see General Surgery for the possibility of having a thyroidectomy so that the thyroid did not encroach upon her trachea causing her breathing issues. She has not followed up with that at this time. We continue to recommend her be evaluated by General Surgery for the thyroid enlargement. Further orders after seen by attending. Dictated by JOYCE Christina for Prateek Sinclair MD cc: JOYCE Christina MD Moses Awoniyi, MD
--- NOTE | 2019-06-12 07:18 | PROGRESS NOTE ---
DATE: 06/11/2019 SUBJECTIVE: The patient came in with chest pain, which is a bit atypical. OBJECTIVE: She was hypertensive, mild leukocytosis. On exam to me, she had fairly significant wheezing, which certainly could be cardiac asthma, but the patient is complaining of chest pain that radiated to her axilla on the right and left side, shortness of breath, chest pressure. She does have known complicated CAD, which I am not sure is amenable to any further treatment. We will put her in, diurese her, treat her COPD and bronchospasm, and see how she does, and will get a Cardiology opinion about further evaluation for underlying ischemia. This is a [id number] encounter note with Ella Griffiths. cc: Prateek Sinclair MD
[2019-06-12] MEDS ORDERED: LASIX PO SCH (12:00)
[2019-06-12] MEDS ORDERED: IMDUR PO SCH (12:00)
[2019-06-12] MEDS ORDERED: COREG PO SCH (12:00)
[2019-06-12] MEDS ORDERED: ALDACTONE PO SCH (12:00)
[2019-06-12] MEDS: ENTRESTO 24 MG-26 MG TABLET PO SCH ×2 (12:08→21:08)
[2019-06-12] MEDS: XANAX PO SCH ×2 (12:09→21:08)
[2019-06-12] MEDS: ZANAFLEX PO SCH ×2 (12:09→21:08)
[2019-06-12 13:12] LABS: CK INDEX 0.9 (0.0-2.5); CK-MB 1.67 ng/mL (0.0-5.0)
[2019-06-12] MEDS: APRESOLINE PO SCH ×2 (15:14→21:08)
[2019-06-12] MEDS ORDERED: ISORDIL PO SCH (17:00)
[2019-06-12] MEDS: LOVENOX SUBQ SCH (18:55)
[2019-06-12] MEDS ORDERED: RESTORIL PO SCH (21:00)
[2019-06-12] MEDS ORDERED: LIPITOR PO SCH (21:00)
[2019-06-12] MEDS: ALDACTONE PO SCH (21:09)
[2019-06-12] MEDS: COREG PO SCH (21:09)
[2019-06-12] MEDS: ISORDIL PO SCH (21:09)
[2019-06-13] MEDS: DILAUDID IV PRN ×2 (02:37→09:10)
[2019-06-13] MEDS: SOLU-MEDROL IV SCH (02:38)
[2019-06-13] MEDS: DUONEB (A & A) INH SCH ×4 (05:27→15:16)
--- NOTE | 2019-06-13 06:01 | PROGRESS NOTE ---
DATE: 06/12/2019 SUBJECTIVE: The patient notes she is still having some chest pain but more in her left breast plate, but otherwise she is feeling better. PHYSICAL EXAMINATION: Vital Signs: Temperature 98 degrees, pulse 98, respiratory rate 18, BP 161/110. General: Patient is awake, alert. She is in no current respiratory distress. HEENT: Normocephalic. Neck: Supple. Cardiovascular: Regular rate. Chest: Clear, nonlabored. Abdomen: Soft, obese, nondistended. Extremities: Moves all extremities. ASSESSMENT: 1. Hypertension with poor control. 2. Chest pain. 3. Dyspnea. 4. Goiter. 5. Morbid obesity. 6. Chronic obstructive pulmonary disease. 7. Known congestive heart failure. 8. Obstructive sleep apnea. 9. Known coronary artery disease although her recent enzymes have been negative. 10. Chronic pain. PLAN: We will continue patient in the hospital, restart her home medications. She has ruled out for an PR. Hopefully, her pain can improve and she can be discharged home over the next day or two. cc: Raffy Morales MD
[2019-06-13] MEDS: LASIX IV SCH (06:25)
[2019-06-13] MEDS: PRILOSEC PO SCH (06:25)
--- NOTE | 2019-06-13 07:47 | CARDIOLOGY CONSULTATION ---
DATE: 06/12/2019 CONSULTATION REQUESTED BY: Hospitalist. REASON FOR CONSULTATION: CHF, chest pain. HISTORY OF PRESENT ILLNESS: Ms. Tanika Diez is a 59-year-old black female who is well known to our service. She normally follows with the team in [facility]. At this time, she presented to the ER with a few days of chest discomfort and shortness of breath. The chest pain seems to be worsened by motion, by leaning forward or moving to the side. The pain starts in the midsternal area, moves around the left breast close to the back. It is intermittent. She was also short of breath and coughing for a few days. Upon presentation, they have done several tests including serial cardiac enzymes, a total of 4 beginning at 1:30 p.m. on June 11, ending at 11:43 this morning. All of the cardiac enzymes are normal. Her proBNP level is minimally elevated at 487/g per mL. Her CPK was only trivially elevated. Her BUN 10, creatinine 1.0. A chest x-ray was done in the ER and it showed cardiomegaly with central vascular prominence. Her ECG at the time of presentation shows sinus rhythm, rate 90 beats per minute with evidence of an old septal scar, anterior scar, a right bundle branch block type of morphology with a left anterior fascicular block. This pattern is just about the same pattern that she has had a prior hospital visits. At this time, she is not in any distress. She feels somewhat better since admission. PAST MEDICAL HISTORY: Really very extensive and it has to do mostly with her cardiovascular system. She has had a previous myocardial infarction several years ago, occluded left anterior descending coronary artery in 2009. At some point, eventually she underwent intervention to totally occluded LAD and also to the mid right coronary artery. She has a history of hypertension. She has COPD. She is diabetic. The patient is really morbidly obese. Her body mass index is 48.9. However, the patient is really very short. The patient has history of hyperlipidemia, peripheral occlusive arterial disease, goiter. SURGICAL HISTORY: She has had a previous cholecystectomy and section. SOCIAL HISTORY: She is disabled. She has 2 grown up children. The patient is single. She quit smoking several years ago. FAMILY HISTORY: Positive for hypertension. REVIEW OF SYSTEMS: The patient has been admitted several times in the past 6 months. She has been seen twice by our team, once on March 07 then on April 15 because of her symptoms of dyspnea and chest discomfort. Dr. Kirby Frey pointed out that she has a goiter that is enlarging and may need ENT or surgical evaluation. HOME MEDICATIONS: At the time of this admission included Xanax 1 mg twice a day, Lipitor 40 mg at bedtime, carvedilol 25 twice a day, furosemide 80 twice a day, hydralazine 25 three times a day, isosorbide mononitrate 60 mg daily, sacubitril / valsartan 24-26 twice a day, spironolactone 25 daily, temazepam 50 mg at bedtime, Tizanidine 4 mg twice a day. ALLERGIES: Include Naprosyn, dichloralphenazone. She is also allergic to acetaminophen, morphine and Zofran. REVIEW OF SYSTEMS: She really does not do a whole lot physically at home. She is mostly sedentary. PHYSICAL EXAMINATION: Vital signs: Blood pressure right now is 119/81, temperature 98.2 degrees, pulse 90, respirations 20. General: She is awake, alert, oriented, in no distress, very obese. HEENT: Unremarkable. Chest: Diminished breath sounds bilaterally with end-expiratory wheezing. Heart: Sounds distant, regular. No gallop or murmur. Abdomen: Obese, nontender. Extremities: Showed decreased pulses. No peripheral edema. Neurologic: Nonfocal. Moves 4 extremities. IMPRESSION: 1. Patient presenting with atypical chest discomfort. 2. Patient with coronary heart disease, previous stents to left anterior descending and right coronary artery. 3. Congestive heart failure that appears to be compensated. This is chronic systolic with minimal elevation of proBNP. 4. The patient has chronic obstructive pulmonary disease and interestingly, a CT scan of the chest that was done on April 16 reported significant multifocal atelectasis. 5. Morbid obesity. 6. Suspected sleep apnea syndrome. RECOMMENDATION: At this point in time, I suspect that the patient's chest pain is really noncardiac. I also suspect that her respiratory symptoms have to do more with COPD. I agree with methylprednisolone as you have started and I would suggest to continue that for the time being. We will cut down on the doses of beta blockers because of the end expiratory wheezing. I will up titrate her nitrate and double up on the spironolactone and see how she does over the next 2 to 3 days. At some point, the patient may require a followup heart catheterization. However, the last one that was done in January 2018 revealed that all of her stents were patent. We will follow her as needed. Thank you for the consultation. cc: Jamey Bolton MD
[2019-06-13] MEDS: APRESOLINE PO SCH ×2 (08:00→16:09)
[2019-06-13] MEDS: ISORDIL PO SCH ×2 (08:00→16:10)
[2019-06-13] MEDS: COREG PO SCH (09:12)
[2019-06-13] MEDS: ALDACTONE PO SCH (09:12)
[2019-06-13] MEDS: XANAX PO SCH (09:12)
[2019-06-13] MEDS: ZANAFLEX PO SCH (09:12)
[2019-06-13] MEDS: ENTRESTO 24 MG-26 MG TABLET PO SCH (09:13)
[2019-06-13] MEDS ORDERED: NORCO-10 PO PRN (10:06)
[2019-06-13] MEDS ORDERED: SOLU-MEDROL IV SCH (10:30)
[2019-06-13] MEDS ORDERED: HALL'S COUGH LOZENGE MT PRN (11:08)
[2019-06-13] MEDS ORDERED: PHENERGAN PO PRN (13:43)
[2019-06-13 16:05] VITALS: BP 108/48
[2019-06-13] MEDS ORDERED: PREDNISONE PO SCH (21:00)
[2019-06-13] MEDS ORDERED: LASIX PO SCH (21:00)
--- NOTE | 2019-06-14 22:02 | DISCHARGE SUMMARY ---
ADMISSION DATE: 06/11/2019 DISCHARGE DATE: 06/13/2019 PRIMARY CARE PHYSICIAN: Dr. Baez. ADMISSION DIAGNOSES: 1. Chest pain. 2. Dyspnea. 3. Hypertension. 4. Goiter. DISCHARGE DIAGNOSES: 1. Chest pain resolved. 2. Hypertension with poor control. 3. Dyspnea, resolved. 4. Goiter. 5. Morbid obesity. 6. Chronic obstructive pulmonary disease. 7. Known congestive heart failure. 8. Obstructive sleep apnea. SUMMARY OF FINDINGS: This is a 59-year-old morbidly obese female who is well known to the hospitalist service presented to the ER with complaints of chest pain that radiated up into her left armpit with some shortness of breath over the past several days that progressively worsened. She was saturating 93% on room air when she arrived, her blood pressure was elevated at 175/102. Her cardiac enzymes were negative x4 sets. We did consult Cardiology who felt that the pain was noncardiac and that her respiratory symptoms had more to do with her COPD. Dola that she may require a followup heart catheterization at some point but the last one was done in 2018 and revealed that all of her stents were patent so today we discontinued her Dilaudid and she now feels that she is ready to be discharged home. DISCHARGE MEDICATIONS: Include Xanax 1 mg p.o. b.i.d., atorvastatin 40 mg p.o. at bedtime, Coreg 25 mg p.o. b.i.d., hydralazine 25 mg p.o. t.i.d., Entresto 24/26 one p.o. b.i.d., spironolactone 25 mg p.o. daily, temazepam 15 mg p.o. at bedtime, tizanidine 4 mg p.o. b.i.d., Lasix 80 mg p.o. b.i.d. and isosorbide 60 mg p.o. daily. FOLLOWUP: She will need to follow with her primary care physician in 1 to 2 weeks and call his office for an appointment. All discharge instructions have been reviewed and she verbalizes understanding. TIME SPENT: 35 minutes. Dictated by JOYCE Christina for Raffy Morales MD cc: JOYCE Christina MD Dr. Awoniyi
--- NOTE | 2019-06-14 22:18 | DISCHARGE SUMMARY ---
ADMISSION DATE: 06/11/2019 DISCHARGE DATE: 06/13/2019 ADDENDUM: Patient seen and examined by myself. Full note dictated and discussed with nurse practitioner. The patient initially was seen early on the and she stated she was still having some chest wall pain as well as shoulder pain, abdominal pain, etc. Stated that she wanted to increase her pain medication and stay in the hospital 1 more day. Discussed with her that IV Dilaudid is very dangerous and she does not need to stay on this. We therefore stopped her IV Dilaudid. I went back to see Ms. Diez that afternoon and she noted that she would like to have Percocet. Discussed with her that she is allergic to Tylenol. She stated the past that it caused her to have a rash and she could not take just Tylenol. She stated that she has had Percocet in the past. I again discussed her that Percocet has Tylenol in it and I could not give her acetaminophen due to her acetaminophen allergy. At that point, she asked for "Vicofen" . I inquired to make sure she was talking about Vicoprofen which she agreed she was. I discussed with her that she states she is allergic to Naprosyn and ibuprofen and therefore she could not take Vicoprofen either. Thankfully, Ms. Smith had a rather quick improvement of her pain and stated that she was ready to go home today. Given that her chest pain and symptoms have improved, we will discharge her home. cc: Raffy Morales MD MTDD
--- NOTE | 2019-06-29 22:46 | PROVIDER DOCUMENTATION ---
This chart was entered by Kulwinder Granados Scribe, acting as scribe for Siddharth Dao MD. HPI-Chest Pain - General Chief Complaint: Shortness of Breath Stated Complaint: SOB / WHEEZING / CHEST PAIN Time Seen by Provider: 06/11/19 13:05 Source: patient, family Allergies/Adverse Reactions: Patient Allergies Allergy/AdvReac Type Severity Reaction Status Date / Time naproxen sodium * Allergy Intermediate RASH Verified 06/11/19 17:29 [From Anaprox] dichloralphenazone AdvReac Mild RASH Verified 06/11/19 17:29 [From MIDRIN] isometheptene mucate * AdvReac Mild RASH Verified 06/11/19 17:29 [From MIDRIN] ketorolac tromethamine * AdvReac Mild RASH Verified 06/11/19 17:29 [From Toradol] naproxen [From Naprosyn] AdvReac Mild RASH Verified 06/11/19 17:29 tramadol HCl * [From Ultram] AdvReac Mild RASH Verified 06/11/19 17:29 acetaminophen AdvReac RASH Verified 06/11/19 17:29 ibuprofen AdvReac RASH Verified 06/11/19 17:29 morphine AdvReac HEADACHE Verified 06/11/19 17:29 ondansetron HCl * AdvReac NAUSEA/VOMI Verified 06/11/19 17:29 [From Zofran (as TING hydrochloride)] Home Medications: Home Medication List Medication Instructions Recorded Confirmed Last Taken Type Isosorbide Mononitrate [Isosorbide 60 mg PO DAILY 07/07/17 06/11/19 06/10/19 10:00 History Mononitrate ER] Alprazolam [Xanax] 1 mg PO BID 11/08/18 06/11/19 06/10/19 21:00 History ATORVAstatin [Lipitor] 40 mg PO HS 04/15/19 06/11/19 06/10/19 21:00 History Carvedilol 25 mg PO BID 04/15/19 06/11/19 06/10/19 21:00 History Hydralazine HCl 25 mg PO TID@0900,1500,2100 04/15/19 06/11/19 06/10/19 21:00 History Spironolactone 25 mg PO DAILY 04/15/19 06/11/1919 10:00 History Tizanidine HCl 4 mg PO BID 04/15/19 06/11/19 06/10/19 21:00 History Furosemide [Lasix] 80 mg PO BID #60 tab 04/20/19 06/11/19 06/11/19 21:00 Rx Sacubitril/Valsartan [Entresto 24 1 ea PO BID #30 tab 04/20/19 06/11/19 06/10/19 21:00 Rx mg-26 mg Tablet] Temazepam 15 mg PO HS 06/11/19 06/11/19 06/10/19 21:00 History - History of Present Illness-CP Nature of Presenting Problem: 59 yof presents to the ed with c/o Lt side chest pains , SOB. pt states all medications have been taken. pt has hx of CHF , heart disease , stents Location: reports: other (Lt side) Chest Pain Radiation: reports: back Quality of Pain: reports: aching Severity in ED: mild Onset/Duration: 3 days ago Timing: still present Context/Activities at Onset: reports: none Modifying Factors: improves with: nothing Associated Symptoms: reports: back pain, shortness of breath. denies: abdominal pain, nausea, vomiting Aspirin Treatment Today: unknown Prior Chest Pain/Cardiac Workup: reports: other (pt has hx of CHF , heart disease, stents) Similar Symptoms Previously?: No Recently Seen Here or By Another Healthcare Provider: No Review of Systems - Adult - REVIEW OF SYSTEMS - ADULT Constitutional: denies: chills, night sweats Eyes: reports: no symptoms reported Ears, Nose, Mouth & Throat: reports: no symptoms reported Cardiovascular: reports: see HPI, chest pain. denies: syncope Respiratory: reports: see HPI, shortness of breath, wheezing. denies: cough, dyspnea on exertion Gastrointestinal: denies: diarrhea, nausea, vomiting Genitourinary: reports: no symptoms reported Musculoskeletal: reports: see HPI, back pain. denies: bone pain, neck pain Integumentary: reports: no symptoms reported Neurological: reports: no symptoms reported Psychiatric: reports: no symptoms reported Endocrine: reports: no symptoms reported Hematologic/Lymphatic: reports: no symptoms reported Allergic/Immunologic: reports: no symptoms reported All Other Systems: Reviewed and Negative Past History - Adult - PAST MEDICAL HISTORY-ADULT Review of Records: reports: Old Records Reviewed, Nursing Assessment Review, Medications Reviewed, Social history reviewed & non-contributory. Major Childhood Illnesses: reports: denies history Cardiovascular: reports: CAD, CHF, HTN, hyperlipidemia, IL (x2) Respiratory: reports: asthma, COPD Gastrointestinal: reports: GERD Obstetrical/Gynecological: reports: denies history Genitourinary: reports: kidney stones Musculoskeletal: reports: chronic pain (back) Neurological: reports: CVA, headaches/migraines (tension headaches) Psychiatric: reports: anxiety Endocrine/Immune: reports: Diabetes Other Conditions: reports: denies history Additional History: Freq ER visits - PRIOR SURGERIES/PROCEDURES Surgical/Procedure History: reports: cholecystectomy, cardiac stent (X2 ), hysterectomy, - PRIOR HOSPITALIZATIONS Prior Hospitalizations: reports: for similar symptoms, for other non-related - IMMUNIZATION STATUS Childhood Immunizations: See Nurse Assessment Flu Vaccine: See Nurse Assessment - FAMILY HISTORY Family History: reviewed, not pertinent - SOCIAL HISTORY Smoking: quit greater than 1 year, cigarettes Substance Use: denies Physical Exam-General - PHYSICAL EXAM-ADULT Initial Vital Signs Reviewed: Yes - CONSTITUTIONAL General Appearance: appears well, alert, mild distress - EYES Eyes: PERRL/EOMI - NECK Neck: normal inspection - RESPIRATORY Respiratory: chest non-tender, lungs clear, normal breath sounds - CARDIOVASCULAR Cardiovascular: normal peripheral pulses, regular rate, rhythm - CHEST (BREASTS) Chest/Breast: deferred - GASTROINTESTINAL (ABDOMEN) Abdominal Exam: normal bowel sounds, non tender, soft - GENITOURINARY Female Genitalia/Pelvic Exam: deferred Rectal Exam: deferred Hemoccult Exam: deferred - MUSCULOSKELETAL Back Exam: normal inspection Extremity: normal inspection - SKIN Integumentary: normal color, normal turgor, warm/dry - NEUROLOGIC Neurologic: grossly normal, no motor/sensory deficits - PSYCHIATRIC Psych/Mental Status: normal mood/affect, normal thought content, normal thought process, oriented x 3 - HEART Score HEART Score: History: Moderately Suspicious HEART Score: ECG: Normal HEART Score: Age: 45-65 Years HEART Score: Risk Factors for Atherosclerotic Disease: > or = 3 Risk Factors or History of Atherosclerotic Disease HEART Score: Troponin: < or = Normal Limit Total HEART Score:: 4 Progress - PLAN OF CARE/RESULTS Progress/Plan/Lab Results: Orders Category Date Time Status Admit - [facility] Routine [id number] 06/11/19 19:19 Active Notify MD if DIRECTED Care 06/11/19 19:19 Completed Nursing- MD Consult Request ROUTINE Care 06/11/19 19:19 Completed Saline Loc DIRECTED Care 06/11/19 19:19 Completed Update & Confirm Home Medicati ROUTINE Care 06/11/19 19:19 Completed Vital Signs Order Q 4-HR ASSESS Care 06/11/19 19:19 Active Z-Document. for Tele Applied ORDERED Care 06/11/19 19:19 Completed MD [Physician/Provider Consults] Routine Cons 06/11/19 19:19 Ordered Heart Healthy Diet Diet 06/11/19 19:20 Completed CHEST-1 VIEW [RAD] Stat Exams 06/11/19 13:06 Completed BASIC METABOLIC PANEL [CHEM] Routine Lab 06/11/19 21:06 Completed CBC WITH ELECTRONIC DIFF [HEME] Routine Lab 06/12/19 03:15 Completed CBC WITH ELECTRONIC DIFF [HEME] Stat Lab 06/11/19 13:30 Completed CK PROFILE [SP CHEM] Q8H Lab 06/11/19 21:06 Completed CK PROFILE [SP CHEM] Q8H Lab 06/12/19 03:15 Completed CK PROFILE [SP CHEM] Q8H Lab 06/12/19 11:43 Completed COMPREHENSIVE METABOLIC PANEL [CHEM] Stat Lab 06/11/19 13:30 Completed MAGNESIUM [CHEM] Routine Lab 06/12/19 03:15 Completed PRO B-NATRIURETIC PEPTIDE Stat Lab 06/11/19 13:30 Completed PROTIME WITH INR [COAG] Stat Lab 06/11/19 13:30 Completed PTT [COAG] Stat Lab 06/11/19 13:30 Completed TROPONIN T Q8H Lab 06/11/19 21:06 Completed TROPONIN T Q8H Lab 06/12/19 03:15 Completed TROPONIN T Q8H Lab 06/12/19 11:43 Completed TROPONIN T Stat Lab 06/11/19 13:30 Completed Albuterol 2.5MG/Ipratrop 0.5MG [Duoneb (A & A)] Med 06/11/19 19:30 Discontinued 3 ml INH RTQ4H Enoxaparin [Lovenox] Med 06/11/19 19:19 Discontinued 40 mg SUBQ Q24H Furosemide [Lasix] Med 06/11/19 17:30 Discontinued 40 mg IV Q12H Meperidine [Demerol] Med 06/11/19 14:57 Discontinued 25 mg IV NOW ONE Meperidine [Demerol] Med 06/11/19 16:51 Discontinued 25 mg IV NOW ONE Meperidine [Demerol] Med 06/11/19 19:19 Discontinued 25 mg IV Q4H PRN PRN Methylprednisolone Sod Succ [Solu-Medrol] Med 06/11/19 19:19 Discontinued 60 mg IV Q8H Omeprazole [Prilosec] Med 06/12/19 07:00 Discontinued 20 mg PO DAILY@0700 Promethazine [Phenergan] Med 06/11/19 14:57 Discontinued 25 mg IM NOW ONE Aerosol Treatments Routine Oth 06/11/19 19:19 Completed Aerosol Treatments Stat Oth 06/11/19 19:19 Completed Oxygen Device Routine Oth 06/11/19 19:19 Completed Telemetry [OM.EQ] Routine Oth 06/11/19 19:19 Active EKG [EKG] Stat Ther 06/11/19 13:06 Draft Transfer/Admit Order [TRANSFER] Routine Transfer 06/11/19 17:02 Completed Result Diagrams: 06/12/19 03:15 06/11/19 21:06 - EKG 1 Time of EKG reading by physician:: 13:12 EKG Read and Signed by:: Siddharth Dao EKG Interpretation (*Must complete 3 of following elements*): Abnormal Rate: 90 (Possible Lt atrial enlargment ) Rhythm: NSR [place]: left (Left axis deviation) QRS: normal HI Interval: normal ST Wave: normal Comments: Rt bundle branch block/ Septal infract, age undetermind - XRAY 1 XRAY Study: Chest Impression: See EMR Report (EXAM: CHEST-1 VIEW HISTORY: sob TECHNIQUE: Single view COMPARISON: 04/15/2019 FINDINGS: The lungs are well expanded. The heart is mildly enlarged. The central vascular prominence. Pulmonary edema is actually less prominent than on the prior study. No pleural effusions identified. No pneumonia. IMPRESSION: Cardiomegaly with central vascular prominence Electronically signed by Krish Call 06/11/2019 1:48 PM 06/11/19 8211 Interpreting Physician: Krish Call MD Dictated Date/Time: 06/11/19 1972 cc: Siddharth Dao MD;) - CONSULTS/PCP/HOSPITALIST Notification #1 *Consult/PCP/Hospitalist*: Admitted to [facility] Time Discussed: 16:51 Consult Disposition: Admit Departure - Departure Date of Disposition Decision: 06/11/19 Time of Disposition Decision: 21:00 DIAGNOSIS: HTN (hypertension), Chest pain Disposition: ADMITTED INPATIENT 09 Certified Medical Emergency: Emergent Condition: Fair - Critical Care Note This patient required my direct & personal management of CC.: No Attestation - Physician/ [place] Attestation Patient care was provided by Advanced Practice Provider:: No The physician spent face to face time with patient:: Yes Advanced Practice Provider documentation review:: Supervising physician onsite and consulted in the evaluation and care of this patient. The physician did have a face to face encounter with the patient. This chart was documented by the indicated scribe, (Kulwinder Granados, Scribe) and accurately reflects the services I performed and decisions made by me, Siddharth Dao MD, as attested by the provider's signature.
== END 2019-06-13 18:00 | disposition home or self-care (01) ==
LOC: P.MEDSURG 12:53 → P.ED 12:53 → SUATTDRO 21:33
PROVIDERS: ATTEND Family Medicine

== ENCOUNTER 2019-07-25 21:55 | Observation (INO) ==
[2019-07-25] MEDS ORDERED: DUONEB (A & A) INH ONE (22:26)
[2019-07-25 22:29] LABS: BASO# 0.02 X1000 (0.0-0.2); BASO% 0.2 % (0.0-0.8); EOS# 0.22 X1000 (0.0-0.7); EOS% 1.8 % (0.0-10.0); HEMATOCRIT 35.9 % (37.0-47.0); HEMOGLOBIN 11.3 g/dL (12.0-16.0); IMM GRAN# 0.03 X1000 (0.0-0.04); IMM GRAN% 0.2 % (0.0-0.5); LYMPH# 2.82 X1000 (1.2-3.4); LYMPH% 22.9 % (20.5-51.1); MCH 29.6 PG (27-31); MCHC 31.5 g/dL (33-37); MONO# 0.81 X1000 (0.11-0.59); MONO% 6.6 % (1.7-9.3); MPV 10.4 FL (7.4-10.4); NEUT# 8.41 X1000 (1.4-6.5); NEUT% 68.3 % (42.2-75.2); PLT 247 X1000 (130-400); RBC 3.82 XMIL (4.2-5.4); RDW 15.3 % (11.5-14.5); WBC 12.31 X1000 (4.8-10.8)
[2019-07-25 22:47] LABS: AGAP 11; ALBUMIN 3.4 g/dL (3.5-5.0); ALKALINE PHOSPHATASE 78 U/L (32-104); BUN 8 mg/dL (8-22); CHLORIDE 105 mmol/L (98-107); CK PROFILE 59 U/L (24-173); COSMO 283; CREATININE 0.8 mg/dL (0.5-0.9); ESTIMATED GFR > 60; GLUCOSE 118 mg/dL (70-104); GOT 11 U/L (10-30); GPT 6 U/L (10-36); POTASSIUM 4.1 mmol/L (3.5-5.1); SODIUM 142 mmol/L (136-145); TCO2 26 mmol/L (25-35); TOTAL PROTEIN 6.7 g/dL (6.3-8.3)
--- NOTE | 2019-07-25 22:50 | PROVIDER DOCUMENTATION ---
This chart was entered by Darwin Peterson Scribe, acting as scribe for Sebastián Amaral MD. HPI-Chest Pain - General Chief Complaint: Chest Pain Stated Complaint: CHEST PAINS Time Seen by Provider: 07/25/19 22:26 Source: patient Allergies/Adverse Reactions: Patient Allergies Allergy/AdvReac Type Severity Reaction Status Date / Time naproxen sodium * Allergy Intermediate RASH Verified 07/25/19 22:22 [From Anaprox] dichloralphenazone AdvReac Mild RASH Verified 07/25/19 22:22 [From MIDRIN] isometheptene mucate * AdvReac Mild RASH Verified 07/25/19 22:22 [From MIDRIN] ketorolac tromethamine * AdvReac Mild RASH Verified 07/25/19 22:22 [From Toradol] naproxen [From Naprosyn] AdvReac Mild RASH Verified 07/25/19 22:22 tramadol HCl * [From Ultram] AdvReac Mild RASH Verified 07/25/19 22:22 acetaminophen AdvReac RASH Verified 07/25/19 22:22 ibuprofen AdvReac RASH Verified 07/25/19 22:22 morphine AdvReac HEADACHE Verified 07/25/19 22:22 ondansetron HCl * AdvReac NAUSEA/VOMI Verified 07/25/19 22:22 [From Zofran (as TING hydrochloride)] Home Medications: Home Medication List Medication Instructions Recorded Confirmed Last Taken Type Isosorbide Mononitrate [Isosorbide 60 mg PO DAILY 07/07/17 07/25/19 06/10/19 10:00 History Mononitrate ER] Alprazolam [Xanax] 1 mg PO BID 11/08/18 07/25/19 06/10/19 21:00 History ATORVAstatin [Lipitor] 40 mg PO HS 04/15/19 07/25/19 06/10/19 21:00 History Carvedilol 25 mg PO BID 04/15/19 07/25/19 06/10/19 21:00 History Hydralazine HCl 25 mg PO TID@0900,1500,2100 04/15/19 07/25/19 06/10/19 21:00 History Spironolactone 25 mg PO DAILY 04/15/19 07/25/19 06/10/19 10:00 History Tizanidine HCl 4 mg PO BID 04/15/19 07/25/19 06/10/19 21:00 History Furosemide [Lasix] 80 mg PO BID #60 tab 04/20/19 07/25/19 06/11/19 21:00 Rx Sacubitril/Valsartan [Entresto 24 1 ea PO BID #30 tab 04/20/19 07/25/19 06/10/19 21:00 Rx mg-26 mg Tablet] Temazepam 15 mg PO HS 06/11/19 07/25/19 06/10/19 21:00 History - History of Present Illness-CP Nature of Presenting Problem: 59 y/o F presents to the ED c/o left sided chest pain that radiates to her upper back. Onset x2 weeks ago. Patient reports that the pain has been constant but worsened tonight. Patient reports the pain to be sharp at times and a pressure sensation. Patient reports the pain to currently be 8/10 in nature. Patient reports that she took a 325mg aspirin today at home. Patient reports that she has a history of DE in 2009. Patient reports that she quit smoking x5 years ago. Patient does report some shortness of breath. Patient denies all other symptoms. Location: reports: substernal (left) Chest Pain Radiation: reports: back (upper) Quality of Pain: reports: pressure, sharp Severity in ED: mild Onset/Duration: 3 days ago Timing: still present, intermittent Context/Activities at Onset: reports: none Modifying Factors: improves with: nothing Associated Symptoms: reports: shortness of breath Aspirin Treatment Today: 325 mg x 1, provided at home Prior Chest Pain/Cardiac Workup: reports: cardiac cath, heart attack Similar Symptoms Previously?: No Recently Seen Here or By Another Healthcare Provider: No Review of Systems - Adult - REVIEW OF SYSTEMS - ADULT Constitutional: reports: no symptoms reported Eyes: reports: no symptoms reported Ears, Nose, Mouth & Throat: reports: no symptoms reported Cardiovascular: reports: chest pain. denies: palpitations Respiratory: reports: shortness of breath. denies: wheezing Gastrointestinal: denies: abdominal pain, diarrhea, nausea, vomiting Genitourinary: reports: no symptoms reported Musculoskeletal: reports: no symptoms reported Integumentary: reports: no symptoms reported Neurological: denies: dizziness/vertigo, headache/migraines Psychiatric: reports: no symptoms reported Endocrine: reports: no symptoms reported Hematologic/Lymphatic: reports: no symptoms reported Allergic/Immunologic: reports: no symptoms reported All Other Systems: Reviewed and Negative Past History - Adult - PAST MEDICAL HISTORY-ADULT Review of Records: reports: Nursing Assessment Review, Medications Reviewed Major Childhood Illnesses: reports: denies history Cardiovascular: reports: CAD, CHF, HTN, hyperlipidemia, DE (x2) Respiratory: reports: asthma, COPD Gastrointestinal: reports: GERD Obstetrical/Gynecological: reports: denies history Genitourinary: reports: kidney stones Musculoskeletal: reports: chronic pain (back) Neurological: reports: CVA, headaches/migraines (tension headaches) Psychiatric: reports: anxiety Endocrine/Immune: reports: Diabetes Other Conditions: reports: denies history Additional History: Freq ER visits - PRIOR SURGERIES/PROCEDURES Surgical/Procedure History: reports: cholecystectomy, cardiac stent (X2 ), hysterectomy, - PRIOR HOSPITALIZATIONS Prior Hospitalizations: reports: for similar symptoms, for other non-related - IMMUNIZATION STATUS Childhood Immunizations: See Nurse Assessment Flu Vaccine: See Nurse Assessment - FAMILY HISTORY Family History: reviewed, not pertinent - SOCIAL HISTORY Smoking: quit greater than 1 year Substance Use: none/never Alcohol Use Frequency: never Physical Exam-General - PHYSICAL EXAM-ADULT Initial Vital Signs Reviewed: Yes - CONSTITUTIONAL General Appearance: alert, no apparent distress - EYES Eyes: pink conjunctivae - HEAD, EARS, NOSE, MOUTH & THROAT HENMT: moist mucous membranes - NECK Neck: full range of motion, normal inspection - RESPIRATORY Respiratory: no respiratory distress, no accessory muscle use, wheezing (scattered and expiratory) - CARDIOVASCULAR Cardiovascular: normal peripheral pulses, regular rate, rhythm - GASTROINTESTINAL (ABDOMEN) Abdominal Exam: non tender, soft - MUSCULOSKELETAL Back Exam: normal inspection Extremity: normal capillary refill, other (2+ edema around bilateral ankles) - SKIN Integumentary: normal color, warm/dry - NEUROLOGIC Neurologic: grossly normal - PSYCHIATRIC Psych/Mental Status: normal mood/affect, oriented x 3 - HEART Score HEART Score: History: Moderately Suspicious HEART Score: ECG: Normal HEART Score: Age: 45-65 Years HEART Score: Risk Factors for Atherosclerotic Disease: > or = 3 Risk Factors or History of Atherosclerotic Disease HEART Score: Troponin: < or = Normal Limit Total HEART Score:: 4 Progress - PLAN OF CARE/RESULTS Progress/Plan/Lab Results: Vital Signs - 8 hr 07/25/19 22:02 07/25/19 23:10 Temperature 98.6 F Pulse Rate 100 H 84 Respiratory Rate 25 H 25 H Blood Pressure 135/93 O2 Sat by Pulse Oximetry 98 98 Laboratory Results - last 24 hr 07/25/19 07/25/19 07/25/19 22:21 22:21 22:21 WBC 12.31 H RBC 3.82 L Hgb 11.3 L Hct 35.9 L MCV 94.0 MCH 29.6 MCHC 31.5 L RDW Std Deviation 15.3 H Plt Count 247 MPV 10.4 Immature Gran % (Auto) 0.2 Neut % (Auto) 68.3 Lymph % (Auto) 22.9 [place] % (Auto) 6.6 Eos % (Auto) 1.8 Baso % (Auto) 0.2 Immature Gran # (Auto) 0.03 Neut # (Auto) 8.41 H Lymph # (Auto) 2.82 [place] # (Auto) 0.81 H Eos # (Auto) 0.22 Baso # (Auto) 0.02 PT INR PTT (Actin FS) D-Dimer, Quantitative 0.75 H Sodium 142 Potassium 4.1 Chloride 105 Carbon Dioxide 26 Anion Gap 11 BUN 8 Creatinine 0.8 Estimated GFR/1.73 m2 > 60 BUN/Creatinine Ratio 10 Glucose 118 H Calculated Osmolality 283 Calcium 9.0 Total Bilirubin 0.60 AST 11 ALT 6 L Alkaline Phosphatase 78 Creatine Kinase 59 Troponin T High Sens Jms-N-Jvbevuimmeo Pept Total Protein 6.7 Albumin 3.4 L Globulin 3.0 Albumin/Globulin Ratio 1.0 07/25/19 07/25/19 07/25/19 22:21 22:21 22:21 WBC RBC Hgb Hct MCV MCH MCHC RDW Std Deviation Plt Count MPV Immature Gran % (Auto) Neut % (Auto) Lymph % (Auto) [place] % (Auto) Eos % (Auto) Baso % (Auto) Immature Gran # (Auto) Neut # (Auto) Lymph # (Auto) [place] # (Auto) Eos # (Auto) Baso # (Auto) PT 13.0 INR 0.94 PTT (Actin FS) 37.4 D-Dimer, Quantitative Sodium Potassium Chloride Carbon Dioxide Anion Gap BUN Creatinine Estimated GFR/1.73 m2 BUN/Creatinine Ratio Glucose Calculated Osmolality Calcium Total Bilirubin AST ALT Alkaline Phosphatase Creatine Kinase Troponin T High Sens 15 Htv-Z-Zrgmbbkzoek Pept 756 H Total Protein Albumin Globulin Albumin/Globulin Ratio 07/26/19 02:01 WBC RBC Hgb Hct MCV MCH MCHC RDW Std Deviation Plt Count MPV Immature Gran % (Auto) Neut % (Auto) Lymph % (Auto) [place] % (Auto) Eos % (Auto) Baso % (Auto) Immature Gran # (Auto) Neut # (Auto) Lymph # (Auto) [place] # (Auto) Eos # (Auto) Baso # (Auto) PT INR PTT (Actin FS) D-Dimer, Quantitative Sodium Potassium Chloride Carbon Dioxide Anion Gap BUN Creatinine Estimated GFR/1.73 m2 BUN/Creatinine Ratio Glucose Calculated Osmolality Calcium Total Bilirubin AST ALT Alkaline Phosphatase Creatine Kinase Troponin T High Sens 14 Frc-T-Xhnspujrbam Pept Total Protein Albumin Globulin Albumin/Globulin Ratio Orders Category Date Time Status Admit - [facility] Routine AdmDCTranf 07/26/19 02:11 Active Activity - Strict Bedrest ORDERED Care 07/26/19 02:11 Active Cardiac Monitoring DIRECTED Care 07/25/19 22:07 Active Oxygen Therapy- ED Nursing DIRECTED Care 07/25/19 22:07 Active Resuscitation Status Routine Care 07/26/19 02:11 Ordered Saline Loc NOW Care 07/25/19 22:07 Active Vital Signs Order Q 4-HR ASSESS Care 07/26/19 02:11 Active Z-Document. for Tele Applied ORDERED Care 07/26/19 02:12 Active NPO Diet 07/26/19 02:12 Active CTA [CT ANGIOGRM PULMONARY ARTERIES] [CT] Stat Exams 07/25/19 23:09 Taken CBC WITH ELECTRONIC DIFF [HEME] Stat Lab 07/25/19 22:21 Completed CK PROFILE [SP CHEM] Stat Lab 07/25/19 22:21 Completed COMPREHENSIVE METABOLIC PANEL [CHEM] Stat Lab 07/25/19 22:21 Completed D-DIMER [COAG] Stat Lab 07/25/19 22:21 Completed PRO B-NATRIURETIC PEPTIDE Stat Lab 07/25/19 22:21 Completed PROTIME WITH INR [COAG] Stat Lab 07/25/19 22:21 Completed PTT [COAG] Stat Lab 07/25/19 22:21 Completed TROPONIN T HIGH SENSITIVITY Lab 07/26/19 05:00 Uncollected TROPONIN T HIGH SENSITIVITY Lab 07/26/19 09:00 Uncollected TROPONIN T HIGH SENSITIVITY Stat Lab 07/25/19 22:21 Completed TROPONIN T HIGH SENSITIVITY Stat Lab 07/26/19 02:01 Completed Albuterol 2.5MG/Ipratrop 0.5MG [Duoneb (A & A)] Med 07/25/19 22:26 Discontinued 3 ml INH NOW ONE Albuterol 2.5MG/Ipratrop 0.5MG [Duoneb (A & A)] Med 07/26/19 03:30 Active 3 ml INH RTQ4H Hydrocodone/APAP 5 mg/325 mg [Amity-5] Med 07/26/19 00:48 Discontinued 1 each PO NOW ONE Hydrocodone/APAP 5 mg/325 mg [Amity-5] Med 07/26/19 02:14 Active 1 each PO Q4H PRN PRN Hydromorphone [Dilaudid] Med 07/26/19 02:47 Discontinued 0.5 mg .ROUTE .STK-MED ONE Hydromorphone [Dilaudid] Med 07/26/19 02:46 Discontinued 0.5 mg IV NOW ONE Promethazine [Phenergan] Med 07/25/19 23:43 Discontinued 25 mg IM NOW ONE Aerosol Treatments Routine Oth 07/25/19 22:26 Completed Aerosol Treatments Routine Oth 07/26/19 02:12 Active Aerosol Treatments Stat Oth 07/25/19 22:26 Completed Aerosol Treatments Stat Oth 07/26/19 02:12 Active Oxygen Device Routine Oth 07/26/19 02:12 Active Telemetry [OM.EQ] Routine Oth 07/26/19 02:11 Active EKG [EKG] Stat Ther 07/25/19 22:07 Ordered Transfer/Admit Order [TRANSFER] Routine Transfer 07/26/19 02:13 Completed Result Diagrams: 07/25/19 22:21 07/25/19 22:21 - EKG 1 Time of EKG reading by physician:: 22:04 EKG Read and Signed by:: Sebastián Amaral EKG Interpretation (*Must complete 3 of following elements*): Abnormal Rate: 102 Rhythm: sinus tachycardia [place]: left QRS: RBB - CONSULTS/PCP/HOSPITALIST Notification #1 *Consult/PCP/Hospitalist*: Dr. Sinclair, hospitalist Time Discussed: 03:30 Consult Disposition: Admit Departure - Departure Date of Disposition Decision: 07/26/19 Time of Disposition Decision: 03:38 DIAGNOSIS: CAD (coronary artery disease) Qualifiers: Coronary Disease-Associated Artery/Lesion type: unspecified vessel or lesion type [place] vs. transplanted heart: am[place] heart Associated angina: with unspecified angina Qualified Code(s): I25.119 - Atherosclerotic heart disease of [place] coronary artery with unspecified angina pectoris Chest pain Qualifiers: Chest pain type: unspecified Qualified Code(s): R07.9 - Chest pain, unspecified Disposition: ADMITTED INPATIENT 09 Certified Medical Emergency: Emergent Condition: Stable Referrals and Follow-Ups: Abel Baez MD [Primary Care Provider] - - Critical Care Note This patient required my direct & personal management of CC.: No Attestation - Physician/ [place] Attestation Patient care was provided by Advanced Practice Provider:: No The physician spent face to face time with patient:: Yes Advanced Practice Provider documentation review:: Supervising physician onsite and consulted in the evaluation and care of this patient. The physician did have a face to face encounter with the patient. This chart was documented by the indicated scribe, (Darwin Peterson Scribfrank) and accurately reflects the services I performed and decisions made by me, Sebastián Amaral MD, as attested by the provider's signature.
[2019-07-25 23:00] LABS: INR 0.94
[2019-07-25 23:01] LABS: PTT 37.4 Seconds (22.3-41.8)
[2019-07-25] MEDS ORDERED: PHENERGAN IM ONE (23:43)
[2019-07-26] MEDS ORDERED: NORCO-5 PO ONE (00:48)
[2019-07-26] MEDS ORDERED: NORCO-5 PO PRN (02:14)
[2019-07-26] MEDS ORDERED: DILAUDID IV ONE (02:46)
[2019-07-26] MEDS ORDERED: DILAUDID ONE (02:47)
[2019-07-26] MEDS: DUONEB (A & A) INH SCH ×2 (04:21→08:41)
--- NOTE | 2019-07-26 05:28 | EKG Report ---
Test Performed on : 07/25/2019 10:03:52 PM Test Reason : CP Blood Pressure : / mmHG Vent. Rate : 102 BPM Atrial Rate : 102 BPM P-R Int : 130 ms QRS Dur : 132 ms QT Int : 410 ms P-R-T Axes : 061 -83 087 degrees QTc Int : 534 ms Sinus tachycardia. Possible Left atrial enlargement Left axis deviation Right bundle branch block Septal infarct (cited on or before 26-NOV-2009) Abnormal ECG When compared with ECG of 11-JUN-2019 13:12, (Unconfirmed) No significant change was found Unconfirmed Result
[2019-07-26 08:05] VITALS: BP 146/92
--- NOTE | 2019-07-26 08:46 | Diag Imaging Result Doc PS360 ---
EXAM: CT ANGIOGRM PULMONARY ARTERIES 07/25/2019 HISTORY: sob,cp,elevated d-dimer TECHNIQUE: This exam was performed using automated exposure control, adjustment of mA or kV according to patient size, and/or use of iterative reconstruction technique. COMMENT: 3-D MIPS were performed. There are platelike opacities present in the lower lobes and right middle lobe. The heart size is enlarged. The platelike opacities present in the upper lobes on the previous study of 03/07/2019 have resolved. There is some motion artifact. There are no filling defects in the pulmonary arteries. There is marked enlargement of the thyroid gland which was also the case previously. The previous examination demonstrated some calcifications in both thyroid lobes. The right-sided calcification is demonstrated on this study. There is some displacement of the trachea to the right due to the enlarged left thyroid lobe which extends below the sternum. The maximum transverse dimension of the thyroid is 8.4 cm which is slightly larger than the 7.7 cm present on the previous CT of the chest of 11/26/2009. This measured over 8 cm on 07/20/2010. There are nonspecific prevascular nodes. The aorta is not well opacified but there is no apparent aneurysm or dissection. There is no apparent acute abnormality demonstrated in the visualized portion of the abdomen. There are some spondylotic changes in the thoracic spine which have not changed since the previous study. IMPRESSION: No evidence of pulmonary emboli. Thyromegaly. Bibasilar atelectasis. Improved upper lobe atelectasis. Electronically signed by Wiliam Cao 07/26/2019 8:44 AM
--- NOTE | 2019-07-26 16:23 | HISTORY AND PHYSICAL ---
CHIEF COMPLAINT: Chest pain. HISTORY OF PRESENT ILLNESS: The patient is a 59-year-old morbidly obese female who presented to the emergency department complaining of chest pain and palpitations. States the pain is left- sided, radiates to her upper back. Onset was two weeks ago, sharp at times. Pressure at times. 8/10 in intensity. [*]she had an IA in 2009. She quit smoking five years ago. ALLERGIES: Anaprox causing a rash. Midrin. Toradol. Naprosyn. Tramadol. Ibuprofen. Morphine causing a headache. Zofran causing vomiting. Everything else causes rashes. Oddly enough, however, she has taken Percocet, [place], Tylenol #3 as noted on the [*] have all been filled under her name,despite having a rash to acetaminophen. MEDICATIONS: Imdur 60, Xanax one b.i.d., Lipitor 40 at bedtime, Coreg 25 b.i.d., hydralazine 25 t.i.d., spironolactone 25 daily, tizanidine 4 b.i.d., Lasix 80 b.i.d., Entresto 24/26 b.i.d., and temazepam 15 at bedtime. REVIEW OF SYSTEMS: As noted above. Complains of sharp stabbing substernal chest pain radiating to her back. Positive shortness of breath, cough, unable to lie flat in the bed. Denies any fevers, chills, dysuria, frequency, urgency, hesitancy, polyuria or polydipsia. Denies skin rashes, weight loss or weight gain. PAST MEDICAL HISTORY: Known coronary artery disease status post IA x2, congestive heart failure, hyperlipidemia, hypertension, COPD, reflux, chronic back pain, chronic kidney stones, chronic migraines, history of stroke, diabetes, chronic anxiety. SURGICAL HISTORY: Cholecystectomy, cardiac stenting x2, hysterectomy, . FAMILY HISTORY: Positive for coronary artery disease. SOCIAL HISTORY: Patient has a long history of smoking although states she does not smoke currently. Denies alcohol or other illicit substance use. PHYSICAL EXAMINATION: VITAL SIGNS: Reviewed. Temperature 98.6 degrees, pulse 100, respiratory rate 25, blood pressure 135/93, saturation 98% on room air. GENERAL: Patient is awake, pleasant. She is in no respiratory distress. HEENT: Normocephalic. NECK: Supple. CARDIOVASCULAR: Regular rate. CHEST: Clear. Nonlabored. ABDOMEN: Soft. Nondistended. NEUROLOGIC: No focal changes. SKIN: Warm and dry. No rashes. ASSESSMENT: 1. Chest pain. 2. Hypertension. 3. Known coronary artery disease. 4. Morbid obesity. 5. History of congestive heart failure. 6. Others. PLAN: We are going to continue patient in the hospital on all of her home medications. Patient states that she feels as though her pain will be gone by tomorrow and asks for IV morphine. Discussed with her that morphine is not an option given that she has allergies. She states it is just a headaches. At that point I discussed with her that IV pain medication should only be used postsurgical or posttraumatic events such as a severe car wreck or having your leg ripped off. Discussed that none of these three events occurred and therefore we should only use pain medication orally if at all. We will admit her to the hospital, rule out IA, and will follow. cc: Raffy Morales MD
--- NOTE | 2019-07-27 04:48 | DISCHARGE SUMMARY ---
ADMISSION DATE: 07/25/2019 DISCHARGE DATE: 07/26/2019 DISCHARGE DIAGNOSIS: Same as admission diagnosis. See history of present illness. CONSULTATIONS: None. PROCEDURES: None. BRIEF HOSPITAL COURSE: The patient was admitted to the hospital with chest pain. Thankfully, her pain improved significantly after she was told that she was not going to have IV pain medication and she asked if she could go home with Percocet. DISPOSITION: Patient will be discharged home with 10 Percocet #5. Discussed with her that she needs to follow up outpatient with her primary care, that coming to the ER and the hospital was not the appropriate place for pain control. Discussed that she cannot have Percocet if she is truly allergic to Tylenol and she notes that she has taken Percocet in the past. This was corroborated with the PDMP. cc: Raffy Morales MD
== END 2019-07-26 12:01 | disposition home or self-care (01) ==
LOC: P.MEDSURG 21:55 → P.ED 21:55 → SUATTDRO 07-26 04:03
PROVIDERS: ATTEND Family Medicine